=== PATIENT | male | born 1970 | race Caucasian/White ===

== ENCOUNTER → 2016-09-26 | Outpatient (CLI) | payer BC ==
--- NOTE | 2016-09-26 09:33 | RAD ---
EXAM DESCRIPTION: Hip,Right 2 Views CLINICAL HISTORY: 46 yearsMale, PAIN IN RIGHT HIP COMPARISON: None. IMPRESSION: 2 views of the right hip demonstrate no evidence of acute fracture or destructive osseous lesion. There is subtle osseous prominence of the lateral margin of the acetabulum, which may be seen with femoral acetabular impingement. Correlate with symptoms and consider follow-up MRI arthrogram of the hip if indicated. Mild changes of osteoarthritis are noted with slight narrowing of the joint space. Calcified phleboliths in the right hemipelvis. Electronically signed by: Gunnar Davalos MD 09/26/2016 9:33 AM CDT
== END | disposition home or self-care (01) ==
LOC: YCFC.O 08:52
PROVIDERS: ATTEND Nurse Practitioner Family
DX: I10 Essential (primary) hypertension (principal); E78.2 Mixed hyperlipidemia; N18.3 Chronic kidney disease, stage 3 (moderate); E11.65 Type 2 diabetes mellitus with hyperglycemia; Z13.29 Encounter for screening for other suspected endocrine disorder; M25.551 Pain in right hip

== ENCOUNTER → 2016-10-02 | Outpatient (CLI) | payer BC | LOC: SL 20:30 | PROVIDERS: ATTEND Nurse Practitioner Family | DX: G47.33 Obstructive sleep apnea (adult) (pediatric) (principal) ==

== ENCOUNTER → 2016-12-12 | Outpatient (CLI) | payer BC | END | disposition home or self-care (01) | LOC: LAB.O 13:37 | PROVIDERS: ATTEND Internal Medicine Interventional Cardiology | DX: R06.02 Shortness of breath (principal) ==

== ENCOUNTER → 2017-01-01 | Outpatient (CLI) | payer BC | END | disposition home or self-care (01) | LOC: YCFC.O 17:12 | PROVIDERS: ATTEND Nurse Practitioner Family | DX: N18.3 Chronic kidney disease, stage 3 (moderate) (principal) ==

== ENCOUNTER 2017-01-10 07:58 | Inpatient (IN) | payer BC ==
[2017-01-10] MEDS ORDERED: ASPIRIN TABLET 325 MG TAB PO ONE (08:13)
[2017-01-10] MEDS ORDERED: SODIUM CHLORIDE 0.9% 1000ML 500 ML IVS ONE (08:13)
[2017-01-10] MEDS ORDERED: ALUMINUM & MAGNESIUM HYDROXIDE 30 ML UD PO ONE (08:13)
--- NOTE | 2017-01-10 08:42 | RAD ---
Chest two views INDICATION: Chest pain COMPARISON: February 01, 2013 IMPRESSION: There is borderline cardiomegaly. No failure. Hazy area of increased density is noted in the right base possibly infiltrate. This is increased from the previous study in this region. Probable mild adjacent pleural thickening or minimal fluid as well. Suspect infectious inflammatory process. This is located posteriorly on the lateral film. Recommend follow-up films to document complete resolution with therapy especially given the previous density in this area to exclude underlying mass. Otherwise no acute process. Electronically signed by: Porter Kincaid MD 01/10/2017 8:41 AM CDT
[2017-01-10] MEDS ORDERED: SODIUM CHLORIDE 0.9% 1000ML 1,000 ML IVS ONE (09:03)
[2017-01-10] MEDS ORDERED: SOD POLYSTYRENE SULFONATE 15 GM/60 ML BTTL PO ONE ×3 (09:29→22:00)
[2017-01-10] MEDS ORDERED: CALCIUM GLUCONATE INJ 1 GM in SODIUM CHLORIDE 0.9% 50ML 50 ML IVPB ONE (09:29)
[2017-01-10] MEDS ORDERED: CALCIUM GLUCONATE INJ 1 GM/10 ML VIAL ONE (09:35)
[2017-01-10] MEDS ORDERED: SODIUM CHLORIDE 0.9% 50ML 50 ML ONE (09:36)
[2017-01-10] MEDS ORDERED: SODIUM BICARBONATE VIAL 50 MEQ/50 ML VIAL IV ONE (09:59)
[2017-01-10] MEDS ORDERED: SODIUM BICARBONATE SYRINGE 50 MEQ/50 ML SYG IV ONE ×3 (10:28→20:25)
[2017-01-10] MEDS ORDERED: FUROSEMIDE INJ 40 MG/4 ML VIAL IV ONE (11:54)
[2017-01-10] MEDS ORDERED: DEXTROSE 5% IV ONE ×2 (11:58→14:46)
[2017-01-10] MEDS ORDERED: SODIUM BICARBONATE IV ONE ×2 (11:58→14:46)
--- NOTE | 2017-01-10 12:46 | ED.PDOC ---
History of Present Illness - General Chief Complaint: Chest Pain/LA Stated Complaint: lightheadedness,dizziness,chest pressure Time Seen by Provider: 01/10/17 08:04 Source: patient Exam Limitations: no limitations - History of Present Illness Initial Comments: the patient is a 46-year-old male presenting to the emergency room secondary precious episode of mild chest discomfort with some shortness of breath this morning. 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 He had been on restricted duty after having had [address] Quesada on 27 December. He had lab work done on 01 January showing a creatinine of 1.98 which is slightly higher than normal for him. The chest pain and shortness of breath resolved on its own prior to arrival here. He has had chest pain and shortness of breath issues in the past. No syncope or near syncope. No palpitations. He has also had several days of frequent diarrhea. He does have a history of high normal potassium levels in the past. It does appear that he still takes lisinopril. Again he is chest pain and essentially symptom-freeat this time of arrival here Timing/Duration: 1/2 hour Severity: mild Improving Factors: rest Worsening Factors: nothing Associated Symptoms: denies symptoms Allergies/Adverse Reactions: Allergies Erythromycin Allergy (Verified 02/01/15 10:59) Hydrocodone Allergy (Verified 02/01/15 10:59) Penicillins Allergy (Verified 02/01/15 12:41) Influenza A (H1N1) Monovalent Vacci Adverse Reaction (Verified 02/01/15 17:05) Home Medications: Ambulatory Orders Escitalopram Oxalate [Lexapro] 20 mg PO DAILY 02/01/15 Lisinopril 40 mg PO DAILY 02/01/15 Albuterol Sulfate [Proair Hfa] 2 puff INH Q6H PRN #1 02/03/15 Insulin Glargine [Toujeo Solostar] 54 unit SC BID 09/25/15 Insulin Lispro [Humalog] 100 unit SC PRN 09/25/15 Lovastatin 20 mg PO BID 09/25/15 amLODIPine BESYLATE [Norvasc] 10 mg PO DAILY 09/25/15 Clonidine HCl 0.1 mg PO Q8H 03/28/16 Ticagrelor [Brilinta] 90 mg PO BID 01/10/17 Review of Systems - Review of Systems Constitutional: States: malaise EENTM: States: no symptoms reported Respiratory: States: short of breath - rief Cardiology: States: chest pain - brief Gastrointestinal/Abdominal: States: diarrhea Genitourinary: States: no symptoms reported Musculoskeletal: States: no symptoms reported Skin: States: no symptoms reported Neurological: States: no symptoms reported Endocrine: States: no symptoms reported All other Systems: No Change from Baseline Past Medical History (General) - Patient Medical History Hx Seizures: No Hx Stroke: No Hx Dementia: No Hx Asthma: Yes Hx of COPD: No Hx Cardiac Disorders: Yes Hx Congestive Heart Failure: No Hx Pacemaker: No Hx Hypertension: Yes Hx Thyroid Disease: No Hx Diabetes: Yes Hx Gastroesophageal Reflux: No Hx Renal Disease: Yes Hx Cancer: No Hx of HIV: No Hx Hepatitis C: No Hx MRSA: No - Vaccination History Hx Tetanus, Diphtheria Vaccination: Yes Hx Influenza Vaccination: No Hx Pneumococcal Vaccination: Yes - Social History Hx Tobacco Use: Yes Hx Chewing Tobacco Use: Yes Hx Alcohol Use: No Hx Substance Use: No Hx Substance Use Treatment: No Hx Depression: No Hx Physical Abuse: No Hx Emotional Abuse: No Hx Suspected Abuse: No - Female History Patient : No Family Medical History - Family History Mother Living Status: Still Living Hx Family Hypertension: Yes Hx Family Diabetes: Yes Father Family History: No Known Living Status: Hx Family Hypertension: Yes Hx Cardiac Disease: Yes Hx Family Diabetes: Yes Physical Exam - Physical Exam General Appearance: Alert, Comfortable, No apparent distress Eye Exam: bilateral normal Ears, Nose, Throat: hearing grossly normal, normal ENT inspection, normal pharynx Neck: non-tender, full range of motion, supple Respiratory: chest non-tender, lungs clear, normal breath sounds, no respiratory distress, no accessory muscle use Cardiovascular/Chest: normal peripheral pulses, regular rate, rhythm, no edema Peripheral Pulses: radial,right: 2+, radial,left: 2+ Gastrointestinal/Abdominal: non tender, soft - obese Rectal Exam: deferred Back Exam: normal inspection, no CVA tenderness, no vertebral tenderness Extremity: normal range of motion, non-tender, no pedal edema, normal capillary refill Neurologic: vice chancellor II-XII nml as tested, alert, normal mood/affect, oriented x 3 Skin Exam: normal color Comments: Vital Signs - 24 hr 01/10/17 01/10/17 01/10/17 08:04 09:00 09:51 Temperature 97.1 F L Pulse Rate [ 80 74 74 Right Brachial] Respiratory 20 16 Rate Blood Pressure 122/57 113/72 129/61 [Right Arm] O2 Sat by Pulse 98 97 Oximetry 01/10/17 01/10/17 01/10/17 09:52 09:53 09:54 Temperature Pulse Rate [ 74 74 Right Brachial] Respiratory 20 Rate Blood Pressure 125/57 131/60 [Right Arm] O2 Sat by Pulse Oximetry 01/10/17 01/10/17 10:36 11:48 Temperature Pulse Rate [ 73 77 Right Brachial] Respiratory 20 16 Rate Blood Pressure 123/65 147/72 [Right Arm] O2 Sat by Pulse 99 100 Oximetry Progress - Progress Progress: 01/10/17 12:48 the patient is a 46-year-old male presenting to emergency room secondary toa brief episode of shortness of breath and chest pain this morning 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 The patient appears to be in acute on chronic renal failure. He does have significant hyperkalemia. He is currently asymptomatic and there are no significant arrhythmias noted. EKG looks reassuring. The patient does have a significant non-anion gap acidosis. Source of the acidosis is likely multifactorial including the renal failure and probably contributed to by the diarrhea. The patient has received a dose of calcium gluconate, sodium bicarbonate,and Kayexalate. After hydrating he has also received a dose of IV Lasix. The patient is currently on D5W with 3 A of sodium bicarbonate at 200 cc per hour. Cardiac enzymes are reassuring. The patient has had no further chest pain. The patient will be admitted for management of the above issues. Please note the initial normal saline bolus was given prior to determination of the significance of his acidosis. It likely did worsen the acidosis at least minimally. This of course will need to be followed. Repeat BMP and pH frequently to ensure correction. Continue telemetry monitoring. Additionally glucoses will need to be monitored fairly closely with the D5W on board. Additional insulin should only help with the hyperkalemia.. No evidence of diabetic ketoacidosis. - Results/Orders Results/Orders: Laboratory Tests 01/10/17 01/10/17 01/10/17 08:30 08:30 08:30 WBC 8.1 RBC 4.60 L Hgb 11.7 L Hct 37.9 L MCV 82.3 MCH 25.4 L MCHC 31.0 L RDW 16.0 H Plt Count 159 MPV 10.4 Absolute Neuts (auto) 6.20 Absolute Lymphs (auto) 1.00 Absolute Monos (auto) 0.70 Absolute Eos (auto) 0.10 Absolute Basos (auto) 0.00 Neutrophils % 76.5 Lymphocytes % 12.6 L Monocytes % 9.2 H Eosinophils % 1.2 Basophils % 0.5 PT 10.2 INR 0.900 PTT (SP) 29.0 pCO2 pO2 HCO3 ABG pH ABG O2 Saturation ABG Base Excess ABG Deoxyhemoglobin Oxyhemoglobin % Carboxyhemoglobin % Methemoglobin % Sat Calc Total Hemoglobin Sodium 135 Potassium 7.1 H* Chloride 116 H* Carbon Dioxide 13 L* Anion Gap 13.1 BUN 50 H Creatinine 3.05 H BUN/Creatinine Ratio 16.4 Random Glucose 151 H Serum Osmolality 286.3 Calcium 8.5 Magnesium 1.7 L Total Bilirubin 0.2 AST 13 ALT 21 Alkaline Phosphatase 50 Creatine Kinase 163 CK-MB (CK-2) 5.9 H* CK-MB (CK-2) % 3.62 H Troponin I 0.03 B-Natriuretic Peptide 53.5 Serum Total Protein 6.3 L Albumin 3.1 L Globulin 3.2 Albumin/Globulin Ratio 1.0 L Amylase 75 Urine Color Urine Appearance Urine pH Ur Specific [place] Urine Protein Urine Glucose (UA) Urine Ketones Urine Blood Urine Nitrite Urine Bilirubin Urine Urobilinogen Ur Leukocyte Esterase Urine RBC Urine WBC Ur Epithelial Cells Amorphous Sediment Urine Bacteria 01/10/17 01/10/17 01/10/17 09:34 10:00 11:15 WBC RBC Hgb Hct MCV MCH MCHC RDW Plt Count MPV Absolute Neuts (auto) Absolute Lymphs (auto) Absolute Monos (auto) Absolute Eos (auto) Absolute Basos (auto) Neutrophils % Lymphocytes % Monocytes % Eosinophils % Basophils % PT INR PTT (SP) pCO2 30 L pO2 88 HCO3 10.6 ABG pH 7.170 L* ABG O2 Saturation 97.2 ABG Base Excess -16.6 ABG Deoxyhemoglobin 2.7 Oxyhemoglobin % 95.2 Carboxyhemoglobin % 0.7 Methemoglobin % Sat 1.4 Calc Total Hemoglobin 11.3 L Sodium 137 Potassium 6.9 H* Chloride 119 H* Carbon Dioxide 11 L* Anion Gap 13.9 BUN 49 H Creatinine 2.94 H BUN/Creatinine Ratio 16.7 Random Glucose 123 H Serum Osmolality 288.2 Calcium 8.4 Magnesium Total Bilirubin AST ALT Alkaline Phosphatase Creatine Kinase 172 CK-MB (CK-2) 6.3 H* CK-MB (CK-2) % 3.66 H Troponin I 0.02 B-Natriuretic Peptide Serum Total Protein Albumin Globulin Albumin/Globulin Ratio Amylase Urine Color Yellow Urine Appearance Clear Urine pH 5.0 Ur Specific [place] >= 1.030 Urine Protein >=300 H Urine Glucose (UA) Negative Urine Ketones Negative Urine Blood Negative Urine Nitrite Negative Urine Bilirubin Negative Urine Urobilinogen 0.2 Ur Leukocyte Esterase Negative Urine RBC 0-1 Urine WBC 1-3 Ur Epithelial Cells 1-3 Amorphous Sediment 3+ Urine Bacteria 1+ Departure - Departure Clinical Impression: Metabolic acidosis, Hyperkalemia Acute renal failure Qualifiers: Acute renal failure type: unspecified Qualified Code(s): N17.9 - Acute kidney failure, unspecified Disposition: Admit Patient Referrals: Leah Buckley NP [Primary Care Provider] - 1-2 Weeks Home Medications: Ambulatory Orders Escitalopram Oxalate [Lexapro] 20 mg PO DAILY 02/01/15 Lisinopril 40 mg PO DAILY 02/01/15 Albuterol Sulfate [Proair Hfa] 2 puff INH Q6H PRN #1 02/03/15 Insulin Glargine [Toujeo Solostar] 54 unit SC BID 09/25/15 Insulin Lispro [Humalog] 100 unit SC PRN 09/25/15 Lovastatin 20 mg PO BID 09/25/15 amLODIPine BESYLATE [Norvasc] 10 mg PO DAILY 09/25/15 Clonidine HCl 0.1 mg PO Q8H 03/28/16 Ticagrelor [Brilinta] 90 mg PO BID 01/10/17 Decision To Admit - Decistion To Admit Decision to Admit Reason: Medical Nature Decision to Admit Date: 01/10/17 Decision to Admit Time: 12:53
--- NOTE | 2017-01-10 13:51 | HP ---
HISTORY OF PRESENT ILLNESS: This 46 year-old white male was admitted to the hospital via the Emergency Room because of significant symptoms of light- headedness, tiredness, mild shortness of breath noted today while returning to work for the first time in a couple of weeks. 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 Two weeks ago today he received a coronary stent by Dr. Quesada in [place]. This was performed on . He had been placed on no work until today when he was to return on light duty. The heat outside was not that bad but he noted the onset of some chest tightness and fullness. No cardiac palpitations evident. No chest pain was present in the Emergency Room. Dizziness and light-headedness was present. He has had some diarrhea off and on for the last 3 days. He admits to using an artificial salt instead of regular salt. He is a diabetic on twice daily dosings of Toujeo 54 units for diabetic management. In the Emergency Room, he was found to have acute worsening of his renal function with creatinine of 3 and potassium very elevated at 7.1. He admits to not having drunk enough fluids recently. Significant metabolic acidosis also present with a normal to decreased anion gap. Potassium elevated at 7.1, creatinine 3.0. The patient is admitted to the hospital because of the significance of his recent coronary history for support and stabilization, and for further delineation of the significant metabolic acidosis noted. PAST MEDICAL HISTORY: 1. Hypertension. 2. Diabetes. 3. Kidney insufficiency. 4. Elevated cholesterol. PAST SURGICAL HISTORY: 1. Second and third finger on the left had been partially amputated successfully reattached. 2. Rotator cuff repair right shoulder. 3. Bronchoscopy in the past. 4. Removal of pus from his right lung which has left some residual thickening of the pleural on that side on chest x-ray. CURRENT MEDICATIONS: Please refer to nurses' notes for a list of verified home medications. ALLERGIES: REFER TO LIST IN THE CHART. 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 He stopped tobacco use about 15 years ago after about 6 pack year histories of smoking. REVIEW OF SYSTEMS: No significant weight change, fever or chills. HEENT: Hearing and vision appear to be uninvolved. LUNGS: Occasional shortness of breath upon exertion, but not recently. CARDIOVASCULAR: History of recent stent placed now with some discomfort in his chest and generalized weakness, and mild chest pain, resolved. ABDOMEN: No nausea, vomiting, diarrhea or blood in the stools. GENITOURINARY: No dysuria. EXTREMITIES: Pedal edema present recently. NEUROLOGIC: Somewhat weak, yet the patient is otherwise awake, alert and oriented. PHYSICAL EXAMINATION: VITAL SIGNS: Afebrile, pulse 79, blood pressure 185/84, pulse oximetry 100% room air. GENERAL: The patient is awake and alert, and a fairly good historian. HEENT: Within normal limits. NECK: Supple. CHEST: Lungs have some diminished breath sounds, otherwise clear. CARDIOVASCULAR: Heart tones regular without any significant gallops. ABDOMEN: Slightly obese yet soft with no tenderness or organomegaly evident. EXTREMITIES: Have about 2+ pitting edema both anterior shins upon exam. NEUROLOGIC: No focal neurological deficits noted. The patient is otherwise awake and alert. He does complain of being somewhat easily fatigued. No dizziness noted on exam at this time. No nystagmus. LABORATORY: White count is 8,100 with hemoglobin of 11.7, INR of 0.9. Blood gases showed significant acidosis with pH of 7.17 with Bicarb 10.6 and PO2 of 88 , PCO2 of 30. Chemistries are abnormal with potassium 7.1, chloride elevated at 116, carbon dioxide 13 down to 11, BUN 50 down to 49, creatinine 3 down to 2.94, glucose 151 down to 111, calcium 8.5, CK 163, troponin 0.03, beta natriuretic peptide 53.5, albumin 3.1. Amylase 75. Urinalysis generally clean with proteinuria and increased specific gravity. Serum ketones are negative. X-ray of the chest showed no acute findings. ASSESSMENT: 1. Acute renal injury possibly related to contrast exposure of 2 weeks ago at the time of the coronary angiography versus prerenal azotemia being treated with some gentle fluid hydration. 2. Hyperkalemia quite high at 7.1. 3. Creatinine of 3. 4. Dehydrated state with increased specific gravity in the urine requiring fluid supplementation. 5. Diabetes mellitus insulin dependent, yet no ketosis. 6. Severe metabolic acidosis awaiting lactic acid level with negative ketones and at this time of other poisoning, such as antifreeze, etc. 7. Abnormal chest x-ray with scarring in the right lower lobe probably related to an empyema present there years ago requiring removal surgically. 8. Pedal edema bilaterally. 9. History of sleep apnea on CPAP machine to continue. 10. History of hypercholesterolemia. 11. Diarrhea for the last 3 days of undetermined etiology. PLAN: Continue with gentle hydration. Will try a bag or 2 of to sodium bicarb renal support fluids and recheck BNP tonight at 11:00 PM. Results to be called. Try Kayexalate orally to help reduce the potassium. Recheck lab in the morning. Continue with insulin therapy having to adjust for ongoing changes in sugar levels. Observe closely. Reevaluate in the morning. #[id number] MTDD
[2017-01-10] MEDS ORDERED: ACETAMINOPHEN 325 MG TAB PO PRN (14:48)
[2017-01-10] MEDS ORDERED: SODIUM CHLORIDE 0.9% (FLUSH) 10 ML SYG IV PRN (14:48)
[2017-01-10] MEDS ORDERED: GLUCAGON INJ 1 MG VIAL SUBCU PRN (14:48)
[2017-01-10] MEDS ORDERED: MAGNESIUM HYDROXIDE 30 ML UD PO PRN (14:48)
[2017-01-10] MEDS ORDERED: DEXTROSE 50% 25 GM/50 ML SYG IV PRN (14:48)
[2017-01-10] MEDS: LEVALBUTEROL NEBS 1.25 MG/3 ML VIAL NEB SCH ×2 (15:00→19:30)
[2017-01-10] MEDS ORDERED: IV SET AND CAP CHANGE INJ INJ SCH (15:00)
[2017-01-10] MEDS ORDERED: traMADol HCL 50 MG TAB PO PRN (15:36)
[2017-01-10] MEDS: INSULIN LISPRO 100 UNITS/ML PEN SUBCU SCH (16:31)
[2017-01-10] MEDS ORDERED: NON-FORMULARY MEDICATION 1 EA MIS (Lisinopril [Lisinopril] 40 MG) PO SCH (19:00)
[2017-01-10] MEDS ORDERED: LISINOPRIL 10 MG TAB ONE (19:08)
[2017-01-10] MEDS: cloNIDine HCL 0.1 MG TAB PO SCH (19:11)
[2017-01-10] MEDS ORDERED: SODIUM BICARBONATE VIAL 100 MEQ in DEXTROSE 5% 1000ML 1,000 ML IVS PRN (20:12)
[2017-01-10] MEDS ORDERED: SOD POLYSTYRENE SULFONATE 15 GM/60 ML BTTL ONE (20:13)
[2017-01-10] MEDS ORDERED: DEXTROSE 5% 1000ML 1,000 ML IVS ONE (20:27)
[2017-01-10] MEDS: NON-FORMULARY MEDICATION 1 EA MIS (Ticagrelor [Brilinta] 90 MG) PO SCH (21:15)
--- NOTE | 2017-01-11 01:34 | PCM.CORE ---
Physician DVT/VTE - Nurse DVT Assessment & Total Each Risk Factor Represents 1 Point: Age 41-60 Each Risk Factor is 1 Point: Obesity (BMI >25) DVT Assessment Score: 2 - 2 Moderate Risk Treatments: Sequential Compression Device
[2017-01-11] MEDS: INSULIN LISPRO 100 UNITS/ML PEN SUBCU SCH ×5 (02:29→20:56)
[2017-01-11] MEDS: cloNIDine HCL 0.1 MG TAB PO SCH ×3 (02:37→18:08)
[2017-01-11] MEDS: OMEPRAZOLE CAP 20 MG CAP PO SCH (05:49)
[2017-01-11] MEDS: LEVALBUTEROL NEBS 1.25 MG/3 ML VIAL NEB SCH ×3 (08:11→19:53)
[2017-01-11] MEDS ORDERED: LISINOPRIL 10 MG TAB ONE (08:28)
[2017-01-11] MEDS ORDERED: DEXTROSE 5% 1000ML 1,000 ML IVS ONE ×3 (08:43→20:30)
[2017-01-11] MEDS: ESCITALOPRAM 10 MG TAB PO SCH (08:51)
[2017-01-11] MEDS: LISINOPRIL 10 MG TAB PO SCH (08:52)
[2017-01-11] MEDS: amLODIPine BESYLATE 5 MG TAB PO SCH (08:52)
[2017-01-11] MEDS: NON-FORMULARY MEDICATION 1 EA MIS (Ticagrelor [Brilinta] 90 MG) PO SCH ×2 (08:57→20:34)
[2017-01-11] MEDS: SODIUM BICARBONATE IV PRN ×2 (09:30→20:33)
[2017-01-11] MEDS: DEXTROSE 5% IV PRN ×2 (09:30→20:33)
[2017-01-11] MEDS ORDERED: FUROSEMIDE INJ 20 MG/2 ML VIAL IV ONE (11:08)
[2017-01-11] MEDS ORDERED: SODIUM BICARBONATE SYRINGE 50 MEQ/50 ML SYG IV ONE (13:03)
--- NOTE | 2017-01-11 20:20 | PN ---
DATE: 01/11/17 SUPERVISING PHYSICIAN: Román Alvarez M.D. SUBJECTIVE: The patient states that he is feeling somewhat better today His kidney function is showing some improvement. An initial 24 hours of close monitoring with continued IV therapy is warranted. He remains afebrile. He has now shown improvement in his potassium this morning having diarrhea from the Kayexalate. OBJECTIVE: VITAL SIGNS: Temperature 96.8, pulse 88, blood pressure 169/81, respirations 18, satting 96% on room air. I's and O's show a positive balance of 30 with 2280 in, 2250 out. He has had multiple bowel movements. Weight is 131.5 kg. CHEST: Lungs are clear to auscultation bilaterally. HEART: Regular rate and rhythm. ABDOMEN: Soft, non-tender. Positive bowel sounds but obese. EXTREMITIES: There is trace bilateral lower extremity edema. NEUROLOGIC: He is alert and oriented times three. LABORATORY: CBC shows white count 6.6, hemoglobin 10.6, hematocrit 33.5, platelet count 130,000. Differential shows no left shift. Chemistries: Potassium now is down to 4.8, sodium 140, chloride 114, carbon dioxide 17 with BUN 44, creatinine 2.53 which is nearing the patient's baseline of 1.9 and 2.0. Blood sugar was 99, calcium 7.9. Lipid panel showed triglycerides of 162 with cholesterol 133, LDL was 66 with HDL of 26. ASSESSMENT: 1. Acute renal injury possibly related to previous contrast exposure 2 weeks prior to admission secondary to coronary angiogram versus some ongoing prerenal azotemia showing some improvement with gentle hydration fluids with bicarb drip. 2. Hyperkalemia initially 7.1, now normalized after Kayexalate and bicarbonate drip. 3. Creatinine of 3.0 on admission showing improvement after IV fluids nearing the patient's baseline of 1.9 and 2.0 being secondary to past coronary artery angiogram with contrast and some ongoing prerenal azotemia. 4. Dehydration as noted by increased specific gravity of the urine showing improvement with ongoing fluid therapy. 5. Diabetes mellitus insulin dependent without any evidence of ketoacidosis 6. Severe metabolic acidosis with negative ketones likely secondary to acute renal injury as noted in number 1. 7. Abnormal chest x-ray with scarring in the right lower lobe related to previous empyema from multiple years previous that required surgical intervention. 8. Bilateral pedal edema requiring ongoing management with IV fluids and loop diuretics. 9. History of sleep apnea on CPAP. 10. Hypercholesterolemia as noted on the recent lipid panel. 11. Diarrhea prior to admission exacerbated by Kayexalate, now resolved. PLAN: Will continue with hydration therapy with sodium bicarbonate drip decreasing to 50 mEq per liter of D5W with a decrease in his rate to 90 per hour with plan to repeat a BMP at 1800 today. Will anticipate discharging tomorrow after repeating laboratory studies to include a BMP. Once the patient is clinically stable enough to be discharged, he will need close clinical followup in the outpatient setting. Until then, will continue to monitor and treat appropriately. #[id number] [facility]
[2017-01-12] MEDS: cloNIDine HCL 0.1 MG TAB PO SCH (02:54)
[2017-01-12 03:32] VITALS: O2SAT 98
[2017-01-12] MEDS: OMEPRAZOLE CAP 20 MG CAP PO SCH (06:06)
[2017-01-12 06:31] VITALS: BP 143/66; TEMP 96.6
[2017-01-12] MEDS: INSULIN LISPRO 100 UNITS/ML PEN SUBCU SCH (08:13)
[2017-01-12] MEDS: LEVALBUTEROL NEBS 1.25 MG/3 ML VIAL NEB SCH (08:50)
[2017-01-12] MEDS: NON-FORMULARY MEDICATION 1 EA MIS (Ticagrelor [Brilinta] 90 MG) PO SCH (09:23)
[2017-01-12] MEDS: LISINOPRIL 10 MG TAB PO SCH (09:24)
[2017-01-12] MEDS: ESCITALOPRAM 10 MG TAB PO SCH (09:25)
[2017-01-12] MEDS: amLODIPine BESYLATE 5 MG TAB PO SCH (09:25)
--- NOTE | 2017-01-14 16:09 | DS ---
SUPERVISING PHYSICIAN: Tashi Khan MD DISCHARGE DIAGNOSES: 1. Acute renal injury possibly related to previous IV contrast exposure 2 weeks prior to admission secondary to coronary angiogram versus some ongoing prerenal azotemia showing some improvement with gentle hydration, bicarb and Lasix. 2. Hyperkalemia initially 7.1, normalized after Kayexalate and bicarbonate prior to discharge. 3. Creatinine of 3.0 on admission showing improvement after IV fluids nearing the patient's baseline of 1.9 and 2.0 felt to be secondary to past coronary artery angiogram with IV contrast and ongoing prerenal azotemia. 4. 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 Severe metabolic acidosis on admission with negative ketones likely secondary to acute renal injury as noted in number 1 improved after Iv therapy with sodium bicarb. 6. Abnormal chest x-ray with scarring on the right lower lobe related to previous empyema with multiple years previous that required surgical intervention. 7. Bilateral pedal edema improved after fluid restrictions and low-dose loop diuretics. 8. History of sleep apnea on CPAP. 9 . Hypercholesterolemia as noted on the recent lipid panel. 10. Diarrhea prior to admission exacerbated by Kayexalate, now resolved. LABORATORY: CBC on admission showed a white count of 8.1, at discharge was 6.6. Hemoglobin and hematocrit were stable on discharge at 10.6 and 33.5. Platelet count 130,000, differential showed to be within normal limits. Coagulation studies showed a normal PT/PTT. Blood gas analysis showed a pH of 7.17 initially on admission with a PC02 of 30 with a bicarb of 10 and P02 of 88. Saturation 97% on room air. Chemistries on admission initially showed a potassium of 7.1 with chloride of 116, carbon dioxide 13, sodium 135, BUN 50, creatinine 3.05. After IV fluids including sodium bicarbonate and a Kayexalate treatment, prior to discharge his electrolytes had normalized. His BUN was down to 37, creatinine down to 2.17. His blood sugars are well controlled between 65 and 157. Calcium 8.1 at discharge. Urinalysis on admission showed greater than 300 protein. Microscopic shows 0 to 1 RBC, 1 to 3 WBC, 1 to 3 epithelials, 3+ amorphous and 1 + bacteria. Toxicology screen showed negative ketones on admission. RADIOSCOPIC: Chest x-ray on admission per radiology interpretation showed a borderline cardiomegaly with no failure. Hazy area of increased density noted within the right base, possibly infiltrate that was increased from previous studies in the same region, probable mild adjacent pleural thickening or minimal fluid as well. There was question of whether or not it was an infectious inflammatory process with recommendations for followup of chest x- ray to resolution. HOSPITAL COURSE: Mr. Leon was admitted on 01/10/17 as noted for hyperkalemia and new metabolic acidosis secondary to ongoing renal failure from the IV contrast he received the previous weeks while having an angiogram. He was started on IV fluids to include an bicarbonate drip and progressed through the clinical course and did well. His electrolytes had normalized. His creatinine and BUN had returned to a more closer baseline status. He was clinically stable and it was felt at that point that he could be discharged and have clinical followup. PLAN: Mr. Leon was discharged on 01/12/17 with instructions to followup with [facility]. 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 Encouraged fluids to help prevent dehydration in moderation. He will need repeat labs on followup visit at least this week to again followup on the BUN and creatinine. He will also need a repeat chest x-ray again to followup on findings on initial x-ray and hospitalization. He was told to return to the hospital should he have any failure in his condition to improve or any other concerning status post. No new medications were prescribed at discharge. He has a followup at 12:10 on 01/15 with [facility], Dennise Buckley. DISCHARGE DIET: 1800 calorie ADA diet as tolerated. ACTIVITIES: No extraneous exercising, welding or any other activities that would expose him to heat until he was seen in followup with [facility]. CONDITION ON DISCHARGE: Stable and improved. #[id number] MTDD
== END 2017-01-12 10:50 | disposition home or self-care (01) | DRG 683 ==
LOC: ER 07:58 → MS 13:50
PROVIDERS: ADMIT Emergency Medicine; ATTEND Emergency Medicine
DX: N17.9 Acute kidney failure, unspecified (principal); E87.2 Acidosis; E87.5 Hyperkalemia; E86.0 Dehydration; E11.9 Type 2 diabetes mellitus without complications; G47.30 Sleep apnea, unspecified; E78.00 Pure hypercholesterolemia, unspecified; R19.7 Diarrhea, unspecified; K21.9 Gastro-esophageal reflux disease without esophagitis; R91.8 Other nonspecific abnormal finding of lung field; J45.909 Unspecified asthma, uncomplicated; Z95.5 Presence of coronary angioplasty implant and graft; Z87.891 Personal history of nicotine dependence; Z88.0 Allergy status to penicillin; Z88.1 Allergy status to other antibiotic agents; Z88.5 Allergy status to narcotic agent; Z88.7 Allergy status to serum and vaccine; Z79.4 Long term (current) use of insulin; Z79.899 Other long term (current) drug therapy

== ENCOUNTER → 2017-01-15 | Outpatient (CLI) | payer BC | END | disposition home or self-care (01) | LOC: LAB.O 09:05 | PROVIDERS: ATTEND Nurse Practitioner Family | DX: N17.9 Acute kidney failure, unspecified (principal) ==

== ENCOUNTER 2017-01-22 20:35 | Inpatient (IN) | payer BC ==
--- NOTE | 2017-01-22 21:10 | ED.PDOC ---
History of Present Illness - General Chief Complaint: General Stated Complaint: elevated potassium, told to come to ED by PCP Time Seen by Provider: 01/22/17 21:09 Source: patient, Vital Signs reviewed Exam Limitations: no limitations - History of Present Illness Initial Comments: Josafat Leon 46 y/o male with history of dm1.5,ckd,htn was told to come to emergency room after blood test done outpatient showed that hehas elevated potassium-6.8 Cr-2.08 bun 46.Had recent cardiac stent placed after he had abnormal cardiac stress test 2 weeks ago. Timing/Duration: unsure Severity: moderate Improving Factors: nothing Worsening Factors: nothing Associated Symptoms: other - diarrhea x 3 weeks Allergies/Adverse Reactions: Allergies Erythromycin Allergy (Verified 01/22/17 20:53) Hydrocodone Allergy (Verified 01/22/17 20:53) Penicillins Allergy (Verified 01/22/17 20:53) Influenza A (H1N1) Monovalent Vacci Adverse Reaction (Verified 01/22/17 20:53) Home Medications: Ambulatory Orders Escitalopram Oxalate [Lexapro] 20 mg PO DAILY 02/01/15 Lisinopril 40 mg PO DAILY 02/01/15 Albuterol Sulfate [Proair Hfa] 2 puff INH Q6H PRN #1 02/03/15 Insulin Glargine [Toujeo Solostar] 54 unit SC BID 09/25/15 Insulin Lispro [Humalog] 100 unit SC PRN 09/25/15 amLODIPine BESYLATE [Norvasc] 10 mg PO DAILY 09/25/15 Clonidine HCl 0.3 mg PO Q8H 03/28/16 Rosuvastatin Calcium [Crestor] 40 mg PO BEDTIME 01/10/17 Ticagrelor [Brilinta] 90 mg PO BID 01/10/17 hydrALAZINE HCl [HydrALAzine HCl] 25 mg PO Q8H 01/10/17 Review of Systems - Review of Systems Constitutional: States: no symptoms reported EENTM: States: no symptoms reported Respiratory: States: no symptoms reported Cardiology: States: no symptoms reported Gastrointestinal/Abdominal: States: no symptoms reported Genitourinary: States: no symptoms reported Musculoskeletal: States: no symptoms reported Neurological: States: no symptoms reported Endocrine: States: no symptoms reported Hematologic/Lymphatic: States: no symptoms reported Past Medical History (General) - Patient Medical History Hx Seizures: No Hx Stroke: No Hx Dementia: No Hx Asthma: Yes Hx of COPD: No Hx Cardiac Disorders: No Hx Congestive Heart Failure: No Hx Pacemaker: No Hx Hypertension: Yes Hx Thyroid Disease: No Hx Diabetes: Yes Hx Gastroesophageal Reflux: No Hx Renal Disease: Yes Hx Cancer: No Hx of HIV: No Hx Hepatitis C: No Hx MRSA: No Surgical History: other - rotator cuff-right,left hand,thoracotomy-empyema, cardiac stent x2 - Vaccination History Hx Tetanus, Diphtheria Vaccination: Yes Hx Influenza Vaccination: No - allergy Hx Pneumococcal Vaccination: Yes Immunizations Up to Date: Yes - Social History Hx Tobacco Use: No Hx Chewing Tobacco Use: No Hx Alcohol Use: No Hx Substance Use: No Hx Substance Use Treatment: No Hx Depression: No Feels Threatened In Home Enviroment: No Feels Threatened In a Relationship: No Hx Physical Abuse: No Hx Emotional Abuse: No Hx Suspected Abuse: No - Activities of Daily Living Patient Lives Alone: No - family - Female History Patient : No Family Medical History - Family History Mother Living Status: Still Living Hx Family Hypertension: Yes - several family members Hx Cardiac Disease: Yes - dad -mi Hx Family Diabetes: Yes - several family members Father Family History: No Known Living Status: Hx Family Hypertension: Yes Hx Cardiac Disease: Yes Hx Family Diabetes: Yes Physical Exam - Physical Exam General Appearance: Alert, Comfortable, No apparent distress Eye Exam: bilateral normal - with corrective glasses Ears, Nose, Throat: hearing grossly normal, normal ENT inspection, normal pharynx Neck: non-tender, full range of motion, supple Respiratory: chest non-tender, lungs clear, normal breath sounds Cardiovascular/Chest: normal peripheral pulses, regular rate, rhythm, no gallop , no murmur Peripheral Pulses: radial,right: 1+, radial,left: 1+, dorsalis pedis,right: 1+, dorsalis pedis,left: 1+, posterior tibialis,right: 1+, posterior tibialis,left: 1+ Gastrointestinal/Abdominal: normal bowel sounds, non tender, soft, other - umbilical hernia reducible Back Exam: normal inspection, no CVA tenderness, no vertebral tenderness Extremity: normal range of motion, non-tender, normal inspection, no calf tenderness Neurologic: alert, normal mood/affect, oriented x 3 Skin Exam: normal color, warm/dry Lymphatic: no adenopathy Progress - Progress Progress: 01/22/17 21:41 Vital Signs - 8 hr 01/22/17 01/22/17 01/22/17 20:39 20:48 21:08 Temperature 97.3 F L Pulse Rate 83 Pulse Rate [ 83 83 75 monitor] Respiratory 16 Rate Blood Pressure 166/95 159/77 [Left Arm] O2 Sat by Pulse 99 Oximetry - Results/Orders Results/Orders: 01/22/17 21:00 EKG STAT 01/22/17 21:11 Sodium Bicarbonate Vial [Sodium Bicarbonate] 50 meq Sodium Chloride 0.45% 1000ML [1/2 Ns 1000ML] 1,000 ml IVS .QD 01/22/17 22:00 CLOSTRIDIUM DIFFICILE AG/TOXIN Stat STOOL CULTURE Stat 01/22/17 22:56 FSBS [GLUCOSE, FINGER STICK] Stat 01/22/17 23:00 Be Our Guest Tray (BOG) ONCE Laboratory Results - last 24 hr 01/22/17 01/22/17 01/22/17 21:00 21:05 21:05 WBC 5.6 RBC 4.34 L Hgb 11.2 L Hct 35.4 L MCV 81.5 MCH 25.8 L MCHC 31.6 L RDW 15.2 H Plt Count 128 L MPV 10.6 H Absolute Neuts (auto) 3.30 Absolute Lymphs (auto) 1.70 Absolute Monos (auto) 0.50 Absolute Eos (auto) 0.10 Absolute Basos (auto) 0.00 Neutrophils % 58.7 Lymphocytes % 29.8 Monocytes % 8.8 Eosinophils % 2.2 Basophils % 0.5 Sodium 138 Potassium 6.3 H Chloride 116 H* Carbon Dioxide 17 L Anion Gap 11.3 L BUN 45 H Creatinine 2.17 H BUN/Creatinine Ratio 20.7 H Random Glucose 134 H Serum Osmolality 289.2 Calcium 8.7 Total Bilirubin 0.4 AST 17 ALT 21 Alkaline Phosphatase 46 Serum Total Protein 6.4 Albumin 3.1 L Globulin 3.3 Albumin/Globulin Ratio 0.9 L Urine Color Yellow Urine Appearance Clear Urine pH 5.5 Ur Specific [place] 1.025 Urine Protein >=300 H Urine Glucose (UA) Negative Urine Ketones Negative Urine Blood Trace-intact H Urine Nitrite Negative Urine Bilirubin Negative Urine Urobilinogen 0.2 Ur Leukocyte Esterase Negative Urine RBC 1-3 Urine WBC 0 Ur Epithelial Cells 0 Urine Bacteria Rare - EKG/XRAY/CT EKG: Sinus, nonspecific ST T wave Chg Comments: heart rate-77 Departure - Departure Clinical Impression: Hyperkalemia, diminished renal excretion, CKD (chronic kidney disease) stage 2 , GFR 60-89 ml/min, Diabetes 1.5, managed as type 1 Time of Disposition: 23:05 - D/W Noé Whitehead ANP/Hospitalist Disposition: Admit Patient Condition: Fair Departure Forms: Patient Portal Self Enrollment Referrals: Leah Buckley NP [Primary Care Provider] - 1-2 Weeks Home Medications: Ambulatory Orders Escitalopram Oxalate [Lexapro] 20 mg PO DAILY 02/01/15 Lisinopril 40 mg PO DAILY 02/01/15 Albuterol Sulfate [Proair Hfa] 2 puff INH Q6H PRN #1 02/03/15 Insulin Glargine [Toujeo Solostar] 54 unit SC BID 09/25/15 Insulin Lispro [Humalog] 100 unit SC PRN 09/25/15 amLODIPine BESYLATE [Norvasc] 10 mg PO DAILY 09/25/15 Clonidine HCl 0.3 mg PO Q8H 03/28/16 Rosuvastatin Calcium [Crestor] 40 mg PO BEDTIME 01/10/17 Ticagrelor [Brilinta] 90 mg PO BID 01/10/17 hydrALAZINE HCl [HydrALAzine HCl] 25 mg PO Q8H 01/10/17
[2017-01-22] MEDS ORDERED: SODIUM CHLORIDE 0.45% IVS PRN (21:11)
[2017-01-22] MEDS ORDERED: SODIUM BICARBONATE IVS PRN (21:11)
[2017-01-22] MEDS ORDERED: CALCIUM GLUCONATE INJ 2 GM in SODIUM CHLORIDE 0.9% 100ML 100 ML IVPB ONE (21:11)
[2017-01-22] MEDS ORDERED: INSULIN, REG.(HUMAN) 100 U/ML VIAL IV ONE (21:13)
[2017-01-22] MEDS ORDERED: SOD POLYSTYRENE SULFONATE 15 GM/60 ML BTTL PO ONE (21:13)
[2017-01-22] MEDS ORDERED: SODIUM CHLORIDE 0.9% 100ML 100 ML IVPB ONE ×3 (21:44→21:47)
[2017-01-22] MEDS ORDERED: CALCIUM GLUCONATE INJ 1 GM/10 ML VIAL ONE ×2 (21:44→21:47)
[2017-01-22] MEDS ORDERED: SODIUM BICARBONATE SYRINGE 50 MEQ/50 ML SYG IV ONE ×2 (23:04→23:51)
[2017-01-22] MEDS ORDERED: SODIUM CHLORIDE 0.45% 1000ML 1,000 ML IVS ONE (23:05)
--- NOTE | 2017-01-22 23:38 | HP ---
SUPERVISING PHYSICIAN: Román Alvarez MD CHIEF COMPLAINT: Elevated potassium. HISTORY OF PRESENT ILLNESS: This is a 46-year-old male patient who was seen in clinic at [facility] for his routine followup. He had had two cardiac stents placed approximately three weeks ago per Dr. Quesada in [place]. After discharge, he had elevated potassium. He also had some chronic renal failure and sees Dr. Lamb. He had a followup to check his potassium. Yesterday evening, he was called by is primary care provider, Leah Buckley, at [facility] to go to the Emergency Room to an elevated potassium of 6.8. In the Emergency Room, he was given some calcium gluconate, some insulin and some dextrose. His potassium came down to 6.3. He did have an elevated chloride of 116, BUN 45, creatinine 2.17. He also received a dose of Kayexalate and was admitted to the hospital. PAST MEDICAL HISTORY: 1. Hypertension. 2. Diabetes. 3. Kidney insufficiency. 4. Hyperlipidemia. PAST SURGICAL HISTORY: 1. Second and third finger amputation that were successfully reattached. 2. Rotator cuff repair, right shoulder. 3. Bronchoscopy. 4. One surgery due to an empyema on the right lung. CURRENT MEDICATIONS: As per the EMR and awaiting verification. ALLERGIES: ERYTHROMYCIN, HYDROCODONE, PENICILLIN, FLU VACCINE. 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 He was a previous smoker, but quit about 15 years ago. He denies any ETOH or illicit drug use. REVIEW OF SYSTEMS: GENERAL: He complains of fatigue. Denies fever or weight changes. HEENT: Denies sinus symptoms, ear pain, vision changes or sore throat. RESPIRATORY: Denies wheezing, coughing or shortness of breath. CARDIAC: Denies chest pain, palpitations or tachycardia. GASTROINTESTINAL: Denies nausea, vomiting, diarrhea, constipation. GENITOURINARY: Denies hematuria, dysuria or polyuria. EXTREMITIES: Denies swelling. NEUROLOGIC: Complains of some dizziness and weakness. Denies headache or seizures. PHYSICAL EXAMINATION: VITAL SIGNS: Afebrile. Heart rate 74. Blood pressure 152/85. Respiratory rate 16. O2 saturation 98% on room air. GENERAL: This is a 46-year-old, male patient who is sitting up in his hospital room. HEENT: Normocephalic, atraumatic. Pupils are equal and reactive. Oropharynx is clear. NECK: Supple without mass. RESPIRATORY: Clear to auscultation bilaterally. CHEST: There is equal rise and fall of the chest with inspiration and expiration. CARDIOVASCULAR: Regular rate and rhythm. ABDOMEN: Soft, nondistended, nontender. Bowel sounds are positive. EXTREMITIES: No cyanosis, clubbing or edema. NEUROLOGIC: Awake, alert and oriented times three. LABORATORY: As per history of present illness plus glucose is 134, albumin 3.1. His followup potassium is 6.4 with BUN 42, creatinine 2.08. Hemoglobin 11 , hematocrit 34.6. All other labs and films have been reviewed via the EMR. ASSESSMENT: 1. Hyperkalemia, most likely due to renal injury as well as high dose of lisinopril. 2. Acute on chronic renal failure with baseline creatinine of about 2. 3. Hypertension. 4. Diabetes mellitus, type 2. 5. History of sleep apnea on CPAP at home. 6. History of hyperlipidemia. 7. History of recent cardiac stent placement per Dr. Quesada about 3 weeks ago. PLAN: We will admit the patient to the hospital. We will continue present supportive care. I have discontinued his lisinopril. His blood pressure has been slightly elevated. We will need to replace his lisinopril with most likely a beta noni. I have spoken to Dr. Lamb and he agrees that we should give another dose of Kayexalate and monitor potassium closely. I will do another potassium this afternoon as well as routine labs in the morning. He is Lovenox for DVT prophylaxis and Protonix for ulcer prophylaxis. We will encourage good pulmonary toilet and will continue to monitor the patient closely and followup as needed. Dr. Alvarez is the collaborating physician and available for consultation. #[id number] [facility] HOSPITALServando
[2017-01-22] MEDS ORDERED: SODIUM BICARBONATE IV PRN (23:40)
[2017-01-22] MEDS ORDERED: DEXTROSE 5% IV PRN (23:40)
[2017-01-22] MEDS ORDERED: GLUCAGON INJ 1 MG VIAL SUBCU PRN (23:42)
[2017-01-22] MEDS ORDERED: SODIUM CHLORIDE 0.9% (FLUSH) 10 ML SYG IV PRN (23:42)
[2017-01-22] MEDS ORDERED: DEXTROSE 50% 25 GM/50 ML SYG IV PRN (23:42)
[2017-01-22] MEDS ORDERED: ACETAMINOPHEN 325 MG TAB PO PRN (23:42)
[2017-01-22] MEDS ORDERED: IV SET AND CAP CHANGE INJ INJ SCH (23:45)
[2017-01-22] MEDS ORDERED: DEXTROSE 5% 1000ML 1,000 ML IVS ONE (23:51)
--- NOTE | 2017-01-23 01:06 | PCM.CORE ---
Physician DVT/VTE - Nurse DVT Assessment & Total Each Risk Factor Represents 1 Point: Age 41-60, Hx of smoking past year Each Risk Factor is 1 Point: Varicose Veins/Edema Legs, Obesity (BMI >25) DVT Assessment Score: 4 - 3-4 High Risk Treatments: Early Ambulation * Pharmacological: Enoxaparin 40 mg SQ Daily
[2017-01-23] MEDS: cloNIDine HCL 0.1 MG TAB PO SCH ×3 (01:14→16:42)
[2017-01-23] MEDS ORDERED: SOD POLYSTYRENE SULFONATE 15 GM/60 ML BTTL PO ONE ×3 (06:47→12:14)
[2017-01-23] MEDS: INSULIN LISPRO 100 UNITS/ML PEN SUBCU SCH ×4 (07:38→21:22)
[2017-01-23] MEDS ORDERED: DEXTROSE 5% 1000ML 1,000 ML IVS ONE (08:41)
[2017-01-23] MEDS ORDERED: SODIUM BICARBONATE SYRINGE 50 MEQ/50 ML SYG IV ONE ×2 (08:41→08:53)
[2017-01-23] MEDS ORDERED: SODIUM BICARBONATE SYRINGE 75 MEQ in DEXTROSE 5% 1000ML 1,000 ML IV PRN (08:54)
[2017-01-23] MEDS: INSULIN GLARGINE 54 UNIT SC SCH ×2 (09:03→21:21)
[2017-01-23] MEDS: ESCITALOPRAM 10 MG TAB PO SCH (09:03)
[2017-01-23] MEDS: amLODIPine BESYLATE 5 MG TAB PO SCH (09:03)
[2017-01-23] MEDS: ENOXAPARIN SODIUM 40 MG/0.4 ML SYG SUBCU SCH (09:04)
[2017-01-23] MEDS: NON-FORMULARY MEDICATION 1 EA MIS (Ticagrelor [Brilinta] 90 MG) PO SCH ×2 (09:05→21:20)
[2017-01-23] MEDS: ATORVASTATIN 20 MG TAB PO SCH (11:34)
[2017-01-23] MEDS ORDERED: cloNIDine PATCH 0.2 MG/24HR 0.2 MG PATCH TD SCH (12:00)
[2017-01-23] MEDS ORDERED: NON-FORMULARY MEDICATION 1 EA MIS (Rosuvastatin Calcium [Crestor] 40 MG) PO SCH (12:00)
[2017-01-23] MEDS ORDERED: SOD POLYSTYRENE SULFONATE 15 GM/60 ML BTTL ONE (13:48)
[2017-01-23] MEDS: METOPROLOL TARTRATE 50 MG TAB PO SCH (16:43)
[2017-01-24] MEDS: cloNIDine HCL 0.1 MG TAB PO SCH ×3 (01:30→17:46)
[2017-01-24] MEDS: INSULIN LISPRO 100 UNITS/ML PEN SUBCU SCH ×4 (07:36→21:09)
[2017-01-24] MEDS ORDERED: MAGNESIUM SULFATE PREMIX 2GM 2 GM in PREMIX BAG 1 BAG IVPB ONE (08:31)
[2017-01-24] MEDS ORDERED: LACTULOSE SYRUP 20 GM/30 ML UD PO ONE (08:31)
[2017-01-24] MEDS: METOPROLOL TARTRATE 50 MG TAB PO SCH ×2 (09:02→17:46)
[2017-01-24] MEDS: amLODIPine BESYLATE 5 MG TAB PO SCH (09:04)
[2017-01-24] MEDS: SODIUM CHLORIDE 0.9% (FLUSH) 10 ML SYG IV SCH ×3 (09:04→21:09)
[2017-01-24] MEDS: NON-FORMULARY MEDICATION 1 EA MIS (Ticagrelor [Brilinta] 90 MG) PO SCH ×2 (09:05→20:31)
[2017-01-24] MEDS: ESCITALOPRAM 10 MG TAB PO SCH (09:05)
[2017-01-24] MEDS: INSULIN GLARGINE 54 UNIT SC SCH ×2 (09:06→21:09)
[2017-01-24] MEDS: ENOXAPARIN SODIUM 40 MG/0.4 ML SYG SUBCU SCH (09:06)
[2017-01-24] MEDS ORDERED: MAGNESIUM SULFATE PREMIX 2GM 50 ML IVPB ONE (09:23)
--- NOTE | 2017-01-24 09:50 | PN ---
SUPERVISING PHYSICIAN: Román Alvarez MD DATE: 01/24/17 SUBJECTIVE: The patient is sitting up on the side of the bed. He states he feels much better than he did yesterday. He has no complaints of chest pain, shortness of breath, nausea or vomiting. He does continue to have complaints of some diarrhea, but he has been on Lactulose. OBJECTIVE: VITAL SIGNS: Blood pressure 158/82. Respiratory rate 16. O2 saturation 98% on room air. LUNGS: Clear to auscultation bilaterally. CARDIAC: Regular rate and rhythm. ABDOMEN: Soft, nontender, nondistended. Bowel sounds are positive. EXTREMITIES: No cyanosis, clubbing or edema. NEUROLOGIC: Awake, alert and oriented times three. LABORATORY: WBC 5, hemoglobin and hematocrit are stable at 11.4 and 36.3. Platelet count 112. Sodium 139, potassium still high at 5.1, BUN 36, creatinine 1.85, calcium 8.1. Phosphorous 5.7, magnesium 1.5. All other labs and films have been reviewed via the EMR. ASSESSMENT: 1. Hyperkalemia, slightly improved, most likely due to renal injury as well as high dose of lisinopril. 2. Acute on chronic renal failure with baseline creatinine of about 2. 3. Hypertension. 4. Hypomagnesemia. 5. Hyperphosphatemia. 6. Diabetes mellitus, type 2. 7. History of sleep apnea on CPAP at home. 8. History of hyperlipidemia. 9. History of recent cardiac stent placement per Dr. Quesada about 3 weeks ago, presently in [facility]. PLAN: We will continue present supportive care. I have given him a dose of magnesium as well as one additional dose of Lactulose. I will repeat his labs in the morning. I will try to touch base with Dr. Lamb in the morning and get him an appointment with him next Sunday when Dr. Lamb is in [place]. He still is on a Catapres patch, so I am going to discontinue that. We may have to increase his metoprolol, but we will watch his blood pressure closely. If we can get his blood pressure stabilized as well as his electrolytes stabilized , he should be able to go home tomorrow or the next day. Otherwise, we will continue to monitor the patient closely and followup as needed. Dr. Alvarez is the collaborating physician and available for consultation. #[id number] JADA
[2017-01-24] MEDS: ATORVASTATIN 20 MG TAB PO SCH (12:56)
[2017-01-25] MEDS: cloNIDine HCL 0.1 MG TAB PO SCH ×2 (01:44→09:05)
[2017-01-25] MEDS: INSULIN LISPRO 100 UNITS/ML PEN SUBCU SCH ×2 (07:44→11:45)
[2017-01-25] MEDS: METOPROLOL TARTRATE 50 MG TAB PO SCH (08:02)
[2017-01-25] MEDS: amLODIPine BESYLATE 5 MG TAB PO SCH (08:05)
[2017-01-25] MEDS: ENOXAPARIN SODIUM 40 MG/0.4 ML SYG SUBCU SCH (08:05)
[2017-01-25] MEDS: ESCITALOPRAM 10 MG TAB PO SCH (08:05)
[2017-01-25] MEDS: SODIUM CHLORIDE 0.9% (FLUSH) 10 ML SYG IV SCH (08:05)
[2017-01-25] MEDS: INSULIN GLARGINE 54 UNIT SC SCH (09:01)
[2017-01-25] MEDS: NON-FORMULARY MEDICATION 1 EA MIS (Ticagrelor [Brilinta] 90 MG) PO SCH (09:04)
[2017-01-25 11:10] VITALS: BP 170/85; TEMP 96.1; O2SAT 98
--- NOTE | 2017-01-25 17:34 | DS ---
SUPERVISING PHYSICIAN: Román Alvarez M.D. DISCHARGE DIAGNOSIS: 1. Hyperkalemia that has improved most likely due to renal injury as well as high dose of Lisinopril. 2. Acute on chronic renal failure with a baseline creatinine of about 2 that has resolved. 3. Hypertension. 4. Hypomagnesemia that has now resolved. 5. Hyperphosphatemia that has now resolved. 6. Diabetes mellitus type 2. 7. Sleep apnea. 8. Hyperlipidemia. 9. History of recent cardiac stent placement per Dr. Quesada about 3 weeks ago presently on Brilinta. HISTORY OF PRESENT ILLNESS: This is a 46 year-old male patient who was seen in clinic at [facility] for his routine followup. He had 2 cardiac stents placed approximately [address] Quesada in [place]. He has had some history of elevated potassium and he has chronic renal failure and sees Dr. Josh Lamb in [place]. He had a followup to check his potassium. He had seen ERICA Mello, at [facility] and has an elevated potassium of 6.8, and was asked to go to the Emergency Room. In the Emergency Room, he was given calcium gluconate, insulin and some dextrose. His potassium came down to 6.3. He also had an elevated chloride of 116, BUN 45, creatinine 2.17. He received a dose of Kayexalate in the Emergency Room. He was admitted to the hospital. HOSPITAL COURSE: He was given 2 additional doses of Kayexalate as well as given some D5W with bicarb and gently hydrated. He was given a dose of magnesium as well as his Lisinopril was discontinued. It was replaced with Metoprolol tartrate 50 mg b.i.d. Over the next 2 days, his hemoglobin and hematocrit remained stable at 11.7 and 37.7. His sodium was 142, potassium 5, BUN 36, creatinine 2.03 with a baseline of 2.1. Glucose remained between 104 and 188. Calcium 8.3, phosphorus 5.1, magnesium 2.1. At this point he is stabilized with his blood pressures and labs, and will be discharged home. DISCHARGE PLAN: The patient will be discharged home in stable condition. He has a followup appointment with Leah Buckley on 01/30/17 at 2:40 for a followup on his hospital admission. He also has a followup appointment with Dr. Josh Lamb on 01/31/17 at 10:00 AM. It is at the [facility] here in [place]. I have given him an order for lab for a CBC, CMP, magnesium and phosphorus for Dr. Lamb when he sees him. He is to have that done on the Sunday prior to his appointment with Dr. Lamb. He is to return to the hospital or call [facility] for any further problems. DISCHARGE MEDICATIONS: 1. Lexapro. 2. ProAir. 3. Norvasc. 4. Humalog. 5. Toujeo. 6. Clonidine. 7. Brilinta. 8. Hydralazine. 9. Crestor. 10. Metoprolol. Dr. Alvarez is the collaborating physician available for consultation. #[id number] JADA
== END 2017-01-25 13:15 | disposition home or self-care (01) | DRG 641 ==
LOC: ER 20:35 → MS 23:36 → OBSVTOIN 01-23 08:56
PROVIDERS: ADMIT Nurse Practitioner Acute Care; ATTEND Nurse Practitioner Acute Care
DX: E87.5 Hyperkalemia (principal); N17.9 Acute kidney failure, unspecified; I12.9 Hypertensive chronic kidney disease with stage 1 through stage 4 chronic kidney disease, or unspecified chronic kidney disease; E11.22 Type 2 diabetes mellitus with diabetic chronic kidney disease; N18.2 Chronic kidney disease, stage 2 (mild); E83.42 Hypomagnesemia; E83.39 Other disorders of phosphorus metabolism; E78.5 Hyperlipidemia, unspecified; G47.30 Sleep apnea, unspecified; Z98.61 Coronary angioplasty status; Z88.1 Allergy status to other antibiotic agents; Z88.5 Allergy status to narcotic agent; Z88.0 Allergy status to penicillin; Z88.7 Allergy status to serum and vaccine; Z87.891 Personal history of nicotine dependence

== ENCOUNTER → 2017-01-22 | Outpatient (CLI) | payer BC | LOC: YCFC.O 12:10 | PROVIDERS: ATTEND Nurse Practitioner Family | DX: N18.3 Chronic kidney disease, stage 3 (moderate) (principal) ==

== ENCOUNTER → 2017-01-29 | Outpatient (CLI) | payer BC | LOC: LAB.O 07:35 | PROVIDERS: ATTEND Nurse Practitioner Acute Care | DX: N18.4 Chronic kidney disease, stage 4 (severe) (principal) ==

== ENCOUNTER → 2017-02-05 | Outpatient (CLI) | payer BC | END | disposition home or self-care (01) | LOC: YCFC.O 07:15 | PROVIDERS: ATTEND Nurse Practitioner Family | DX: N18.3 Chronic kidney disease, stage 3 (moderate) (principal); E83.42 Hypomagnesemia ==

== ENCOUNTER → 2017-02-13 | Outpatient (CLI) | payer BC ==
--- NOTE | 2017-02-14 11:04 | RAD ---
EXAM DESCRIPTION: Chest,2 Views CLINICAL HISTORY: DYSPNEA COMPARISON: January 10, 2017, February 01, 2015 TECHNIQUE: PA/lateral FINDINGS: The left lung remains clear but there is focal density that is both pleural and parenchymal at the lateral right lung base that is unchanged from a study one month earlier. This finding is more prominent than remote 2015 examination. With the lack of clearing further evaluation with contrast-enhanced chest CT to evaluate this region is recommended. Heart size is upper limits of normal with normal vascularity. The hilar and mediastinal structures are normal. No bony abnormalities are seen. IMPRESSION: 1. Cyst and abnormal right chest that is both pleural and parenchymal and most consistent with an inflammatory process but an underlying mass cannot be excluded. 2. Little interval improvement in the one month interval since most recent study with definite increased density from remote 2015 CT and plain film examination. The remote CT examination demonstrated a previous cavitation with air-fluid level consistent with an inflammatory process. 3. Further evaluation with contrast-enhanced chest CT evaluation is recommended. 4. The left lung hilar and mediastinal structures remain normal with new abnormalities elsewhere are not evident Electronically signed by: Román De Los Santos MD 02/14/2017 11:03 AM CDT
== END | disposition home or self-care (01) ==
LOC: LAB.O 12:27
PROVIDERS: ATTEND Nurse Practitioner Family
DX: R06.00 Dyspnea, unspecified (principal)

== ENCOUNTER → 2017-02-22 | Outpatient (CLI) | payer BC ==
--- NOTE | 2017-02-23 16:22 | CT ---
EXAM DESCRIPTION: Chest w/o Contrast CLINICAL HISTORY: DYSPNEA, UNSPECIFIED COMPARISON: CT chest without contrast 02/01/2015. Chest x-ray 02/13/2017. TECHNIQUE: Spiral-axial scans at 5.0 mm intervals through the lungs and thorax without IV contrast. Coronal and sagittal 2.0 Mm reconstructions. Total Exam DLP: 733.9 mGy-cm. This exam was performed according to our departmental dose-optimization program which includes automated exposure control, adjustment of the mA and/or kV according to patient size and/or use of iterative reconstruction technique; to reduce radiation dose to as low as reasonably achievable (ALARA). FINDINGS: Lungs are well expanded bilaterally except for chronic atelectasis or scarring in the right lower lobe which contains dilated bronchi and air cavities. This has enlarged, especially the pleural-based tissue, since the prior study. Also scarring more inferiorly in the posterior recess of the right lower lobe. Minimal scarring in the base of the left lower lobe. Small dilated airspaces bilateral upper lobes. No acute infiltrate or suspicious nodules. Stable pleural thickening. No acute pleural effusion or pneumothorax. Bilateral radiodense thyroid gland noted. No adenopathy in the base of the neck or axillary regions. Small lymph nodes in the azygos region pneumomediastinum and AP window. No enlarged lymph nodes in the axillary regions. Chronic pericardial thickening is again noted as well as coronary artery stents and calcifications. Included adrenal glands normal size and density. Normal size and density of the included spleen. Gallbladder is visualized. No subdiaphragmatic fluid or free air. Kyphosis and spondylosis of the included thoracic spine degenerative changes in the sternum. No destructive lesions. IMPRESSION: 1. Progressive scarring in the parenchyma and pleural base of the right lower lobe compared to the prior study over two years ago. Other areas of bilateral parenchymal scarring and pleural thickening are stable. No new pulmonary mass or abnormal nodules bilaterally. 2. Minimal emphysematous changes in the upper lobes again noted. 3. Small lymph nodes are new in the mediastinum but not enlarged. Electronically signed by: Sanford Estrada MD 02/23/2017 4:21 PM CDT Workstation: [id number]
== END | disposition home or self-care (01) ==
LOC: CT 17:22
PROVIDERS: ATTEND Nurse Practitioner Family
DX: R06.00 Dyspnea, unspecified (principal)

== ENCOUNTER 2017-03-02 18:25 | Inpatient (IN) | payer BC ==
--- NOTE | 2017-03-02 18:48 | ED.PDOC ---
History of Present Illness - General Chief Complaint: General Stated Complaint: Swelling of legs and hands Time Seen by Provider: 03/02/17 18:36 Source: patient, RN notes reviewed, Vital Signs reviewed Exam Limitations: no limitations - History of Present Illness Initial Comments: Patient comes in with c/o lower extremity and hand swelling. He reports he normally has some ankle swelling but now is noticing it up to his thighs along with pitting edema of his hands. He also has some mild SOB. In the past 2 months he has had coronary artery stents placed and was admitted to the hospital twice for high potassium and renal failure. He reports follow up checked of his potassium have been fine. Patient reports over the past few weeks his weight has vaired from 290's to 306. Last night his weight was 304#, today he is 310#. Reports last time he was in the hospital (~4 weeks ago) his weight was 270#'s Timing/Duration: 24 hours, getting worse Severity: severe Improving Factors: nothing Worsening Factors: nothing Associated Symptoms: shortness of breath Allergies/Adverse Reactions: Allergies Erythromycin Allergy (Verified 01/22/17 20:53) Hydrocodone Allergy (Verified 01/22/17 20:53) Penicillins Allergy (Verified 01/22/17 20:53) Influenza A (H1N1) Monovalent Vacci Adverse Reaction (Verified 01/22/17 20:53) Home Medications: Ambulatory Orders Escitalopram Oxalate [Lexapro] 20 mg PO DAILY 02/01/15 Albuterol Sulfate [Proair Hfa] 2 puff INH Q6H PRN #1 02/03/15 Insulin Glargine [Toujeo Solostar] 54 unit SC BID 09/25/15 Insulin Lispro [Humalog] 100 unit SC PRN PRN 09/25/15 amLODIPine BESYLATE [Norvasc] 10 mg PO DAILY 09/25/15 Clonidine HCl 0.3 mg PO Q8H 03/28/16 Rosuvastatin Calcium [Crestor] 40 mg PO NOON 01/10/17 Ticagrelor [Brilinta] 90 mg PO BID 01/10/17 hydrALAZINE HCl [HydrALAzine HCl] 25 mg PO Q8H 01/10/17 Metoprolol Tartrate 50 mg PO BID #60 tab 01/25/17 Review of Systems - Review of Systems Constitutional: States: no symptoms reported Respiratory: States: short of breath - mild. Denies: cough, orthopnea, wheezing Cardiology: States: edema. Denies: chest pain, palpitations, syncope Gastrointestinal/Abdominal: States: no symptoms reported Genitourinary: States: no symptoms reported Musculoskeletal: States: no symptoms reported Skin: States: no symptoms reported Neurological: States: no symptoms reported All other Systems: No Change from Baseline Past Medical History (General) - Patient Medical History Hx Seizures: No Hx Stroke: No Hx Dementia: No Hx Asthma: Yes Hx of COPD: No Hx Cardiac Disorders: No Hx Congestive Heart Failure: No Hx Pacemaker: No Hx Hypertension: Yes Hx Thyroid Disease: No Hx Diabetes: Yes Hx Gastroesophageal Reflux: No Hx Renal Disease: Yes Hx Cancer: No Hx of HIV: No Hx Hepatitis C: No Hx MRSA: No - Vaccination History Hx Tetanus, Diphtheria Vaccination: Yes Hx Influenza Vaccination: No - allergy Hx Pneumococcal Vaccination: Yes - Social History Hx Tobacco Use: No Hx Chewing Tobacco Use: No Hx Alcohol Use: No Hx Substance Use: No Hx Substance Use Treatment: No Hx Depression: No Hx Physical Abuse: No Hx Emotional Abuse: No Hx Suspected Abuse: No - Female History Patient : No Family Medical History - Family History Mother Living Status: Still Living Hx Family Hypertension: Yes - several family members Hx Cardiac Disease: Yes - dad -mi Hx Family Diabetes: Yes - several family members Father Family History: No Known Living Status: Hx Family Hypertension: Yes Hx Cardiac Disease: Yes Hx Family Diabetes: Yes Physical Exam - Physical Exam General Appearance: Alert, Comfortable, No apparent distress, Well Developed, Well Groomed, Well Hydrated, Well Nourished Neck: normal inspection Respiratory: lungs clear, normal breath sounds, no respiratory distress, no accessory muscle use Cardiovascular/Chest: regular rate, rhythm, no gallop, no murmur, other - 3+ pitting edema to knees and of bilateral hands Extremity: pedal edema Neurologic: alert, normal mood/affect, oriented x 3 Skin Exam: normal color, warm/dry Progress - Progress Progress: 03/02/17 19:[address] Patino. Will admit for edema and acute renal failure. Needs fluid restriction and gentle diuresis. Will need follow up again with Dr. Lamb. Patient reports he did see him ~ 2 weeks ago. - Results/Orders Results/Orders: Laboratory Tests 03/02/17 03/02/17 19:00 19:00 WBC 5.8 RBC 4.76 Hgb 12.5 L Hct 38.2 L MCV 80.3 MCH 26.2 L MCHC 32.8 L RDW 14.3 Plt Count 130 MPV 10.5 H Absolute Neuts (auto) 3.50 Absolute Lymphs (auto) 1.60 Absolute Monos (auto) 0.50 Absolute Eos (auto) 0.20 Absolute Basos (auto) 0.00 Neutrophils % 60.3 Lymphocytes % 27.9 Monocytes % 8.2 Eosinophils % 2.8 Basophils % 0.8 Sodium 137 Potassium 4.7 Chloride 107 Carbon Dioxide 19 L Anion Gap 15.7 BUN 54 H Creatinine 2.74 H BUN/Creatinine Ratio 19.7 Random Glucose 228 H Serum Osmolality 295.8 H Calcium 8.0 L Total Bilirubin < 0.2 L AST 21 ALT 22 Alkaline Phosphatase 56 B-Natriuretic Peptide 290.0 H* Serum Total Protein 6.0 L Albumin 3.2 Globulin 2.8 Albumin/Globulin Ratio 1.1 - EKG/XRAY/CT XRAY: chest - Persistent RLL consolidation, unchanged per Radiologist Departure - Departure Clinical Impression: Diabetes 1.5, managed as type 1 Hypertension Qualifiers: Hypertension type: essential hypertension Qualified Code(s): I10 - Essential ( primary) hypertension Time of Disposition: 19:38 Disposition: Admit Patient Condition: Fair Referrals: Leah Buckley NP [Primary Care Provider] - 1-2 Weeks Home Medications: Ambulatory Orders Escitalopram Oxalate [Lexapro] 20 mg PO DAILY 02/01/15 Albuterol Sulfate [Proair Hfa] 2 puff INH Q6H PRN #1 02/03/15 Insulin Glargine [Toujeo Solostar] 54 unit SC BID 09/25/15 Insulin Lispro [Humalog] 100 unit SC PRN PRN 09/25/15 amLODIPine BESYLATE [Norvasc] 10 mg PO DAILY 09/25/15 Clonidine HCl 0.3 mg PO Q8H 03/28/16 Rosuvastatin Calcium [Crestor] 40 mg PO NOON 01/10/17 Ticagrelor [Brilinta] 90 mg PO BID 01/10/17 hydrALAZINE HCl [HydrALAzine HCl] 25 mg PO Q8H 01/10/17 Metoprolol Tartrate 50 mg PO BID #60 tab 01/25/17 Decision To Admit - Decistion To Admit Decision to Admit Reason: Admit from ER Decision to Admit Date: 03/02/17 Decision to Admit Time: 19:37
--- NOTE | 2017-03-02 19:16 | RAD ---
EXAM DESCRIPTION: Chest,2 Views CLINICAL HISTORY: 47 years Male Edema SOB COMPARISON: Chest CT 02/22/2017 FINDINGS: Cardiac size and mediastinal contour are unchanged. There is persistent consolidation in the right lower lobe which appears unchanged when compared to the previous study. No new area of infiltrate is noted. Small amount of pleural fluid is present on the right. IMPRESSION: Persistent area of consolidation in the right lower lobe consistent with pneumonia. Small associated effusion Electronically signed by: Roya Nieves 03/02/2017 7:14 PM CDT
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
[2017-03-02] MEDS ORDERED: NITROGLYCERIN 0.4 MG 25 EA TAB SL PRN (20:45)
[2017-03-02] MEDS ORDERED: MAGNESIUM HYDROXIDE 30 ML UD PO PRN (20:45)
[2017-03-02] MEDS ORDERED: SODIUM CHLORIDE 0.9% (FLUSH) 10 ML SYG IV PRN (20:45)
[2017-03-02] MEDS ORDERED: DEXTROSE 50% 25 GM/50 ML SYG IV PRN (20:45)
[2017-03-02] MEDS ORDERED: LEVALBUTEROL NEBS 1.25 MG/3 ML VIAL NEB PRN (20:45)
[2017-03-02] MEDS ORDERED: GLUCAGON INJ 1 MG VIAL SUBCU PRN (20:45)
[2017-03-02] MEDS ORDERED: IV SET AND CAP CHANGE INJ INJ SCH (21:00)
[2017-03-02] MEDS ORDERED: CALCIUM GLUCONATE INJ 1 GM/10 ML VIAL IV ONE (21:03)
--- NOTE | 2017-03-02 21:08 | PCM.CORE ---
Physician DVT/VTE - 5 or more Very High Risk Treatments: Sequential Compression Device Pharmacological: Enoxaparin 40mg SQ Daily
[2017-03-02] MEDS ORDERED: METOPROLOL TARTRATE 50 MG TAB PO SCH (21:30)
[2017-03-02] MEDS ORDERED: ENOXAPARIN SODIUM 40 MG/0.4 ML SYG SUBCU SCH (21:30)
[2017-03-02] MEDS ORDERED: METOPROLOL TARTRATE 25 MG TAB ONE (21:56)
[2017-03-02] MEDS ORDERED: ENOXAPARIN SODIUM 30 MG/0.3 ML SYG SUBCU ONE (21:56)
[2017-03-02] MEDS: INSULIN LISPRO 100 UNITS/ML PEN SUBCU SCH (21:59)
[2017-03-02] MEDS: FUROSEMIDE INJ 40 MG/4 ML VIAL IV SCH (22:00)
[2017-03-02] MEDS: cloNIDine HCL 0.1 MG TAB PO SCH (22:03)
[2017-03-02] MEDS: INSULIN GLARGINE 54 UNIT SC SCH (22:14)
[2017-03-02] MEDS: ALBUTEROL SULFATE 2.5 MG/3 ML VIAL NEB SCH (22:27)
[2017-03-03] MEDS ORDERED: DEXTROSE 5% 1000ML 1,000 ML IVS ONE ×2 (01:17→19:37)
[2017-03-03] MEDS ORDERED: SODIUM BICARBONATE SYRINGE 50 MEQ/50 ML SYG IV ONE ×2 (01:17→19:37)
[2017-03-03] MEDS: SODIUM BICARBONATE SYRINGE 75 MEQ in DEXTROSE 5% 1000ML 1,000 ML IV PRN ×2 (01:22→20:18)
[2017-03-03] MEDS: cloNIDine HCL 0.1 MG TAB PO SCH ×3 (05:22→21:11)
[2017-03-03] MEDS: ALBUTEROL SULFATE 2.5 MG/3 ML VIAL NEB SCH ×4 (08:05→20:27)
[2017-03-03] MEDS: INSULIN LISPRO 100 UNITS/ML PEN SUBCU SCH ×4 (08:12→21:08)
[2017-03-03] MEDS: INSULIN GLARGINE 54 UNIT SC SCH ×2 (09:02→21:09)
[2017-03-03] MEDS: amLODIPine BESYLATE 5 MG TAB PO SCH (09:02)
[2017-03-03] MEDS: ESCITALOPRAM 10 MG TAB PO SCH (09:03)
[2017-03-03] MEDS: FUROSEMIDE INJ 20 MG/2 ML VIAL IV SCH ×2 (09:07→16:25)
[2017-03-03] MEDS: FUROSEMIDE INJ 40 MG/4 ML VIAL IV SCH (09:17)
--- NOTE | 2017-03-03 13:53 | PN ---
DATE: 03/03/17 SUBJECTIVE: The patient is sitting up on the side of the bed and able to ambulate nicely. Still with significant lower extremity as well as especially right hand edema. It is 3+ pitting at the mid shins bilaterally. He appears to have less edema today and he feels less dyspneic today compared to yesterday. OBJECTIVE: VITAL SIGNS: He is afebrile. Pulse 73, blood pressure 167/92, pulse oximetry 98% on room air. The patient has put out approximately 5,000 mL of urine and has noted some weight loss with one bowel movement. LUNGS: He does have some rhonchi that is especially in the right base which clears a little bit as he coughs and clears his secretions. He is encouraged to specifically take deep breaths frequently during the day. LABORATORY: Hemoglobin 11.9, white count 5,800. Chemistry shows potassium stable at 4.5, BUN has come down from 54 to 49 and creatinine has come down from 2.74 to 2.48. Sugar is fasting 180, hemoglobin A1c 7.2, calcium 8.3, albumin 2.9, troponin 0. Urinalysis showed some glycosuria, proteinuria and trace of hematuria. No cultures at this time. ASSESSMENT: 1. Acute exacerbation of chronic renal failure with renal injury showing slight improvement with gentle diuresis and supplementation. 2. Associated moderate metabolic acidosis yet with fairly normal chloride present. 3. Significant edema state possibly contributed to by polydipsia at work as well as the associated renal injury. 4. Diabetes mellitus, insulin dependent, contributing to the renal insufficiency. 5. Hypocalcemia showing improvement with supplementation. 6. Primary lung disease being followed in Pulmonary Clinic with Dr. Escalera. 7. History of empyema. 8. History of hypertension. 9. History of a periumbilical hernia currently symptom free. PLAN: Will continue with the buffered crystalloid solution yet cut back a little bit on the diuresis. increase activity, do an ambulation study to check on desaturation as to whether oxygen would be required. Reevaluation and consider outpatient therapy as stable. #[id number] [facility]
[2017-03-03] MEDS ORDERED: METOPROLOL TARTRATE 25 MG TAB ONE (15:50)
[2017-03-03] MEDS: METOPROLOL TARTRATE 50 MG TAB PO SCH (16:25)
[2017-03-03] MEDS ORDERED: ENOXAPARIN SODIUM 30 MG/0.3 ML SYG SUBCU SCH (21:00)
[2017-03-03] MEDS ORDERED: ENOXAPARIN SODIUM 40 MG/0.4 ML SYG SUBCU SCH (21:00)
[2017-03-03] MEDS ORDERED: ENOXAPARIN SODIUM 30 MG/0.3 ML SYG SUBCU ONE (21:20)
[2017-03-04] MEDS: cloNIDine HCL 0.1 MG TAB PO SCH ×2 (05:55→13:41)
[2017-03-04] MEDS: METOPROLOL TARTRATE 50 MG TAB PO SCH (07:51)
[2017-03-04] MEDS: INSULIN LISPRO 100 UNITS/ML PEN SUBCU SCH ×2 (07:57→12:18)
[2017-03-04] MEDS: ALBUTEROL SULFATE 2.5 MG/3 ML VIAL NEB SCH ×2 (08:55→13:02)
[2017-03-04] MEDS: FUROSEMIDE INJ 20 MG/2 ML VIAL IV SCH (09:11)
[2017-03-04] MEDS: ESCITALOPRAM 10 MG TAB PO SCH (09:11)
[2017-03-04] MEDS: amLODIPine BESYLATE 5 MG TAB PO SCH (09:11)
[2017-03-04] MEDS: INSULIN GLARGINE 54 UNIT SC SCH (09:11)
[2017-03-04 12:31] VITALS: BP 180/83; TEMP 97.8; O2SAT 96
--- NOTE | 2017-03-04 20:13 | DS ---
DISCHARGE DIAGNOSIS: 1. Acute exacerbation of chronic renal failure with renal injury showing slight improvement with gentle diuresis and supplementation possibly aggravated by an underlying diabetic glomerulonephropathy with associated proteinuria. 2. Associated moderate metabolic acidosis yet with fairly normal chloride present. 3. Significant edema state contributed to possibly by polydipsia as well as the associated renal injury and associated congestive heart failure of undetermined etiology. 4. Chronic diabetes mellitus insulin dependent contributing to the renal insufficiency. 5. Hypocalcemia showing improvement with supplementation. 6. Primary lung disease being followed in pulmonary clinic by Dr. Escalera possibly a sequelae and residual lung scarring from history of empyema with followup necessary. 7. History of empyema requiring surgical procedure. 8. History of hypertension. 9. History of periumbilical hernia currently symptom free. 10. Congestive heart failure of undetermined etiology. HISTORY OF PRESENT ILLNESS: This 47 year-old white male is admitted to the hospital via the Emergency Room because of severe worsening generalized edema state, especially involving hands and lower extremities with worsening dyspnea and shortness of breath. 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 He was in the hospital a couple of times in the last month for renal failure with elevated potassium level. In December, he had coronary stents placed by Dr. Quesada which seemed to have given him more energy to be able to perform some of his various activities. He does have some exertional dyspnea which has worsened recently. He is not on a diuretic nor has he been on any fluid restrictions. He is followed-up closely by Dr. Lamb in the Nephrology Clinic as well as Dr. Escalera in the Pulmonary Medicine Clinic, and in [facility] with Leah Buckley. The patient was admitted to the hospital for initiation of therapy with an elevated BNP of 290 and markedly elevated BUN of 54, creatinine 2.74 and significant weight gain evident. LABORATORY: White count remained normal. Hemoglobin initially was 12.5 and was 12.4 on discharge, stable. He is presenting with a microcytic hypochromic red blood cell indices pattern. Chemistries showed elevated BUN of 54 decreasing to 40, creatinine of 2.74 decreasing to 2.27, potassium is stable at 4.3, glucose improved from 253 to 117, hemoglobin A1c was 7.2, calcium 8.1, magnesium 2. Liver enzymes normal. Troponin zero. Beta natriuretic peptide 290 and albumin 2.9. TSH of 5.2. Urinalysis showed proteinuria, glycosuria and a small amount of hematuria. No cultures were obtained. X-ray of the chest was performed on admission and showed some consolidation in the right lower lobe which had a recent CT scan of the chest for evaluation per Dr. Escalera, Pulmonary Medicine, showing persistence and in fact more prominence of this consolidative process probably as residual of a history of empyema in that same region. Close followup is necessary. HOSPITAL COURSE: The patient showed a fairly significant weight reduction as documented in his intake and output section, and though he still had some peripheral edema at the time of discharge, it will be continued to be approached in the outpatient department. He was feeling much improved and even with ambulation studies failed to show any significant desaturation prior to his discharge. PLAN: The patient was ready for outpatient followup at the time of his discharge. He was ambulating without assistance and family members stated he looked and apparently felt much improved. He is scheduled to have a followup visit at [facility] with the family calling for an appointment this next week. Suggest that family call Dr. Quesada and try to get an appointment for an echocardiogram within the next 2 to 4 days at the [place] office. Also, family to assist with getting an appointment with Dr. Lamb in Nephrology Clinic for specific advice as to whether he needs to restart some of his buffering solutions for chronic renal insufficiency and to have close followup of his glomerulonephropathy. He is also to see Dr. Escalera in followup for the right lower lobe scarring which is persistent and especially CT scan recently being performed for review. Suggest fluid intake to be limited to under 1600 mL per 24 hours and observe closely. Closely manage the diabetes. Continue to lose weight. Follow congestive heart failure instructions. See home medications. Try Lasix daily 40 mg for the next 2 to [address] Lamb to followup with laboratory studies of kidney function, etc. Avoid inhaling welding fumes. Suggest repeating lab in the next 2 weeks with [facility]'s assistance. Try calcium supplements twice a day. Return if not improving. #[id number] [facility]
== END 2017-03-04 13:45 | disposition home or self-care (01) | DRG 683 ==
LOC: ER 18:25 → UNDOADMIN 19:59 → MS 19:59
PROVIDERS: ADMIT Emergency Medicine; ATTEND Emergency Medicine
DX: N17.9 Acute kidney failure, unspecified (principal); E87.2 Acidosis; I13.0 Hypertensive heart and chronic kidney disease with heart failure and stage 1 through stage 4 chronic kidney disease, or unspecified chronic kidney disease; Z68.41 Body mass index [BMI] 40.0-44.9, adult; E11.22 Type 2 diabetes mellitus with diabetic chronic kidney disease; N18.9 Chronic kidney disease, unspecified; I50.9 Heart failure, unspecified; E83.51 Hypocalcemia; J98.4 Other disorders of lung; R60.9 Edema, unspecified; E78.5 Hyperlipidemia, unspecified; J45.909 Unspecified asthma, uncomplicated; I25.10 Atherosclerotic heart disease of native coronary artery without angina pectoris; E66.9 Obesity, unspecified; Z88.1 Allergy status to other antibiotic agents; Z88.5 Allergy status to narcotic agent; Z88.7 Allergy status to serum and vaccine; Z87.891 Personal history of nicotine dependence; Z95.5 Presence of coronary angioplasty implant and graft; Z79.4 Long term (current) use of insulin; Z79.899 Other long term (current) drug therapy

== ENCOUNTER 2017-03-06 08:37 | Observation (INO) | payer BC ==
[2017-03-06] MEDS ORDERED: SODIUM CHLORIDE 0.9% (FLUSH) 10 ML SYG IV PRN (09:02)
[2017-03-06] MEDS ORDERED: ASPIRIN TABLET 325 MG TAB PO ONE (09:02)
--- NOTE | 2017-03-06 09:32 | RAD ---
EXAM DESCRIPTION: Chest,1 View CLINICAL HISTORY: Shortness of breath FINDINGS/ IMPRESSION: Comparison 03/02/2017 Cardiomegaly with mild central vascular engorgement. No edema. Left lung is clear. Persistent opacity/infiltrate in the right lower lobe similar appearance. Recommend follow-up until clearing Electronically signed by: Román Sim MD 03/06/2017 9:30 AM CDT
--- NOTE | 2017-03-06 09:48 | ED.PDOC ---
History of Present Illness - General Chief Complaint: Respiratory Problem Stated Complaint: shortness of breath Time Seen by Provider: 03/06/17 09:01 Source: patient, family Exam Limitations: no limitations - History of Present Illness Initial Comments: PT REPORTS PROGRESSIVELY WORSENING SOB AFTER BEING DISCHARGED FROM THE HOSPITAL ON 3 DAYS AGO. PT REPORTS HE WAS TREATED FOR FLUID OVERLOAD/CHF HOWEVER HAS NO HISTORY OF CHF IN THE PAST. PT WAS ALSO TOLD HE HAD PNEUMONIA WHILE HOSPITALIZED HOWEVER WAS NOT SENT HOME ON ABX. PT DENIES FEVER OR CHEST PAIN. Timing/Duration: days - 3 Severity: moderate Activities at Onset: none Improving Factors: rest Worsening Factors: movement Associated Symptoms: denies symptoms Allergies/Adverse Reactions: Allergies Erythromycin Allergy (Verified 03/02/17 19:42) Hydrocodone Allergy (Verified 03/02/17 19:42) Penicillins Allergy (Verified 03/02/17 19:42) Influenza A (H1N1) Monovalent Vacci Adverse Reaction (Verified 03/02/17 19:42) Home Medications: Ambulatory Orders Escitalopram Oxalate [Lexapro] 20 mg PO DAILY 02/01/15 Albuterol Sulfate [Proair Hfa] 2 puff INH Q6H PRN #1 02/03/15 Insulin Glargine [Toujeo Solostar] 54 unit SC BID 09/25/15 Insulin Lispro [Humalog] 100 unit SC PRN PRN 09/25/15 amLODIPine BESYLATE [Norvasc] 10 mg PO DAILY 09/25/15 Clonidine HCl 0.3 mg PO Q8H 03/28/16 Rosuvastatin Calcium [Crestor] 40 mg PO NOON 01/10/17 hydrALAZINE HCl [HydrALAzine HCl] 25 mg PO Q8H 01/10/17 Metoprolol Tartrate 50 mg PO BID #60 tab 01/25/17 Clonazepam 0.5 mg PO BID PRN 03/02/17 Clopidogrel Bisulfate 75 mg PO DAILY 03/02/17 Furosemide Tab [Lasix Tab] 40 mg PO QAM #20 tab 03/04/17 Review of Systems - Review of Systems Constitutional: Denies: chills, fever EENTM: Denies: blurred vision, nose congestion Respiratory: States: see HPI, cough, short of breath Cardiology: Denies: chest pain, palpitations Gastrointestinal/Abdominal: Denies: abdominal pain, nausea Musculoskeletal: Denies: back pain, muscle pain Skin: Denies: change in color, lesions Endocrine: Denies: intolerance to cold, intolerance to heat Past Medical History (General) - Patient Medical History Hx Seizures: No Hx Stroke: No Hx Dementia: No Hx Asthma: Yes Hx of COPD: No Hx Cardiac Disorders: Yes - CAD WITH 2 STENTS Hx Congestive Heart Failure: Yes Hx Pacemaker: No Hx Hypertension: Yes Hx Thyroid Disease: No Hx Diabetes: Yes Hx Gastroesophageal Reflux: No Hx Renal Disease: Yes Hx Cancer: No Hx of HIV: No Hx Hepatitis C: No Hx MRSA: No - Vaccination History Hx Tetanus, Diphtheria Vaccination: Yes Hx Influenza Vaccination: No - allergy Hx Pneumococcal Vaccination: Yes - Social History Hx Tobacco Use: No Hx Chewing Tobacco Use: No Hx Alcohol Use: No Hx Substance Use: No Hx Substance Use Treatment: No Hx Depression: No Hx Physical Abuse: No Hx Emotional Abuse: No Hx Suspected Abuse: No - Female History Patient : No Family Medical History - Family History Mother Living Status: Still Living Hx Family Hypertension: Yes - several family members Hx Cardiac Disease: Yes - dad -mi Hx Family Diabetes: Yes - several family members Father Family History: No Known Living Status: Hx Family Hypertension: Yes Hx Cardiac Disease: Yes Hx Family Diabetes: Yes Physical Exam - Physical Exam General Appearance: Alert, Comfortable, Obese Eyes, Ears, Nose, Throat Exam: normal ENT inspection Neck: normal inspection Respiratory: no respiratory distress, rales - BILATERAL Cardiovascular/Chest: regular rate, rhythm, no murmur Gastrointestinal/Abdominal: non tender, soft Extremity: pedal edema, swelling - 3+ PITTING EDEMA TO KNEES B/L Neurologic: alert, normal mood/affect, oriented x 3 Skin Exam: normal color, warm/dry Progress - Progress Progress: 03/06/17 10:32 PT RESTING COMFORTABLY, EATING A BOX LUNCH AFTER HYPOGLYCEMIC READING ON LABS. LABS AND XRAY FINDINGS DISCUSSED. AGREES WITH PLAN TO ADMIT. 03/06/17 10:47 RIGHT EJ PLACED BY ME. - Results/Orders Results/Orders: 03/06/17 09:02 Telemetry .ONCE Sodium Chloride 0.9% (Flush) [Saline Flush Syringe] 10 ml IV PRN PRN EKG Stat Pulse Ox Stat 03/06/17 09:03 Pulse Oximetry Assessment DAILY Laboratory Results - last 24 hr 03/06/17 09:30 WBC 7.9 RBC 5.11 Hgb 13.0 L Hct 41.1 L MCV 80.4 MCH 25.4 L MCHC 31.7 L RDW 14.4 Plt Count 137 MPV 10.6 H Absolute Neuts (auto) 6.00 Absolute Lymphs (auto) 1.00 Absolute Monos (auto) 0.70 Absolute Eos (auto) 0.10 Absolute Basos (auto) 0.00 Neutrophils % 75.8 Lymphocytes % 13.0 L Monocytes % 8.9 Eosinophils % 1.7 Basophils % 0.6 PT 9.4 INR 0.830 PTT (SP) 32.5 Sodium 139 Potassium 4.9 Chloride 107 Carbon Dioxide 22 Anion Gap 14.9 BUN 42 H Creatinine 2.41 H BUN/Creatinine Ratio 17.4 Random Glucose 58 L D Serum Osmolality 285.8 Calcium 8.9 Magnesium 2.0 Creatine Kinase 418 H* CK-MB (CK-2) 8.7 H* CK-MB (CK-2) % 2.08 Troponin I < 0.02 B-Natriuretic Peptide 185.0 H - EKG/XRAY/CT EKG: Sinus - @71BPM, NL INTERVALS, NL AXIS, no ST T wave changes XRAY: chest Xray Comments: PERSISTENT RLL INFILTRATE, CARDIOMEGALY WITH CENTRAL VENOUS CONGESTION Departure - Departure Clinical Impression: Healthcare-associated pneumonia, Congestive heart failure, Hypoglycemia, Pitting edema Time of Disposition: 10:35 Disposition: Admit Patient Condition: Fair Departure Forms: ED Discharge - Pt. Copy, Patient Portal Self Enrollment Referrals: Leah Buckley NP [Primary Care Provider] - 1-2 Weeks Home Medications: Ambulatory Orders Escitalopram Oxalate [Lexapro] 20 mg PO DAILY 02/01/15 Albuterol Sulfate [Proair Hfa] 2 puff INH Q6H PRN #1 02/03/15 Insulin Glargine [Toujeo Solostar] 54 unit SC BID 09/25/15 Insulin Lispro [Humalog] 100 unit SC PRN PRN 09/25/15 amLODIPine BESYLATE [Norvasc] 10 mg PO DAILY 09/25/15 Clonidine HCl 0.3 mg PO Q8H 03/28/16 Rosuvastatin Calcium [Crestor] 40 mg PO NOON 01/10/17 hydrALAZINE HCl [HydrALAzine HCl] 25 mg PO Q8H 01/10/17 Metoprolol Tartrate 50 mg PO BID #60 tab 01/25/17 Clonazepam 0.5 mg PO BID PRN 03/02/17 Clopidogrel Bisulfate 75 mg PO DAILY 03/02/17 Furosemide Tab [Lasix Tab] 40 mg PO QAM #20 tab 03/04/17 Decision To Admit - Decistion To Admit Decision to Admit Reason: Admit from ER - HCAP, CRF, CHF, EDEMA, HYPOGLYCEMIA Decision to Admit Date: 03/06/17 - CASE DISCUSSED WITH KELLY ELAM WHO AGREES TO ADMIT Decision to Admit Time: 10:36
[2017-03-06] MEDS ORDERED: FUROSEMIDE INJ 40 MG/4 ML VIAL IV ONE (09:55)
[2017-03-06] MEDS ORDERED: CEFEPIME 2 GM in SODIUM CHL 0.9% 50ML MIN-BAG+ 50 ML IVPB ONE (10:48)
[2017-03-06] MEDS ORDERED: levoFLOXacin 750MG IV 750 MG in PREMIX BAG 1 BAG IVPB ONE (10:48)
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
[2017-03-06] MEDS ORDERED: NITROGLYCERIN 0.4 MG 25 EA TAB SL PRN (11:43)
[2017-03-06] MEDS ORDERED: ACETAMINOPHEN 325 MG TAB PO PRN (11:55)
[2017-03-06] MEDS ORDERED: GLUCAGON INJ 1 MG VIAL SUBCU PRN (11:55)
[2017-03-06] MEDS ORDERED: ALBUTEROL SULFATE 2.5 MG/3 ML VIAL NEB PRN (11:55)
[2017-03-06] MEDS ORDERED: DEXTROSE 50% 25 GM/50 ML SYG IV PRN (11:55)
[2017-03-06] MEDS ORDERED: IV SET AND CAP CHANGE INJ INJ SCH ×2 (12:00)
[2017-03-06] MEDS ORDERED: NITROGLYCERIN 0.4 MG/HR PATCH TOP SCH (12:30)
[2017-03-06] MEDS: IPRATROPIUM/ALBUTEROL 3 ML VIAL INH SCH ×4 (12:45→22:10)
[2017-03-06] MEDS: cloNIDine HCL 0.1 MG TAB PO SCH ×2 (12:52→21:15)
--- NOTE | 2017-03-06 14:48 | PCM.CORE ---
Physician DVT/VTE - Nurse DVT Assessment & Total Each Risk Factor Represents 3 Points: Medical PT with Hx of [place], CHF, Severe infection/sepsis Each Risk Factor Represents 1 Point: Age 41-60 Each Risk Factor is 1 Point: Obesity (BMI >25), Serious Lung disease (pnemonia < 1month, COPD, emphysema,etc) DVT Assessment Score: 6 - 5 or more Very High Risk Treatments: Early Ambulation *, Sequential Compression Device Pharmacological: Enoxaparin 40mg SQ Daily
[2017-03-06] MEDS ORDERED: FUROSEMIDE INJ 40 MG/4 ML VIAL ONE (15:11)
[2017-03-06] MEDS ORDERED: METOPROLOL TARTRATE 50 MG TAB ONE (15:11)
[2017-03-06] MEDS ORDERED: ENOXAPARIN SODIUM 40 MG/0.4 ML SYG SUBCU ONE (15:11)
[2017-03-06] MEDS: ENOXAPARIN SODIUM 40 MG/0.4 ML SYG SUBCU SCH (15:16)
--- NOTE | 2017-03-06 16:21 | US ---
EXAM DESCRIPTION: Venous,Lower Extremity LT (accession [id number]), Venous,Lower Extremity RT (accession [id number]) CLINICAL HISTORY: edema w/0 hx CHF; hx Renal Insuf COMPARISON: None Available. TECHNIQUE: Bilateral extremity venous duplex examination with grayscale, color Doppler, and spectral pulse Doppler examination. FINDINGS: Bilateral lower extremity duplex examination from approximately the level of the inguinal ligament to below the popliteal fossa was performed. Normal flow and augmentation and compressibility throughout is present. No filling defects on involving either the left or right lower extremity venous system is seen. The common femoral vein, femoral vein, popliteal vein as well as the posterior tibial and peroneal veins are patent. IMPRESSION: Negative bilateral lower extremity DVT sonography. Electronically signed by: Román De Los Santos MD 03/06/2017 4:20 PM CDT
--- NOTE | 2017-03-06 16:21 | US ---
EXAM DESCRIPTION: Venous,Lower Extremity LT (accession [id number]), Venous,Lower Extremity RT (accession [id number]) CLINICAL HISTORY: edema w/0 hx CHF; hx Renal Insuf COMPARISON: None Available. TECHNIQUE: Bilateral extremity venous duplex examination with grayscale, color Doppler, and spectral pulse Doppler examination. FINDINGS: Bilateral lower extremity duplex examination from approximately the level of the inguinal ligament to below the popliteal fossa was performed. Normal flow and augmentation and compressibility throughout is present. No filling defects on involving either the left or right lower extremity venous system is seen. The common femoral vein, femoral vein, popliteal vein as well as the posterior tibial and peroneal veins are patent. IMPRESSION: Negative bilateral lower extremity DVT sonography. Electronically signed by: Román De Los Santos MD 03/06/2017 4:20 PM CDT
[2017-03-06] MEDS: METOPROLOL TARTRATE 50 MG TAB PO SCH (16:40)
[2017-03-06] MEDS ORDERED: FUROSEMIDE INJ 40 MG/4 ML VIAL IV SCH (17:00)
[2017-03-06] MEDS: INSULIN LISPRO 100 UNITS/ML PEN SUBCU SCH ×2 (17:51→21:11)
[2017-03-06] MEDS ORDERED: REMOVE OLD PATCH TOP SCH (21:00)
[2017-03-06] MEDS: SODIUM CHLORIDE 0.9% (FLUSH) 10 ML SYG IV PRN (21:15)
[2017-03-06] MEDS: INSULIN GLARGINE 54 UNIT SC SCH (21:25)
[2017-03-07] MEDS: cloNIDine HCL 0.1 MG TAB PO SCH ×2 (04:37→12:11)
--- NOTE | 2017-03-07 06:41 | RAD ---
EXAM: Two view chest. INDICATION: Pneumonia. COMPARISON: Chest x-ray: 03/06/2017. FINDINGS: There is a right lower lobe airspace opacity. The heart size is stable. There is no pneumothorax. The bones are unchanged. IMPRESSION: Right lower lobe airspace opacity, which may represent pneumonia. Electronically signed by: Jose F Santiago MD 03/07/2017 6:39 AM CDT Workstation: [id number]
[2017-03-07] MEDS: INSULIN LISPRO 100 UNITS/ML PEN SUBCU SCH ×2 (07:37→12:05)
[2017-03-07] MEDS: IPRATROPIUM/ALBUTEROL 3 ML VIAL INH SCH (07:58)
[2017-03-07] MEDS ORDERED: NITROGLYCERIN 0.4 MG/HR PATCH TOP SCH (09:00)
[2017-03-07] MEDS ORDERED: amLODIPine BESYLATE 5 MG TAB PO SCH (09:00)
[2017-03-07] MEDS ORDERED: CLOPIDOGREL 75 MG TAB PO SCH (09:00)
[2017-03-07] MEDS ORDERED: FUROSEMIDE 40 MG TAB PO SCH (09:00)
[2017-03-07] MEDS ORDERED: ESCITALOPRAM 10 MG TAB PO SCH (09:00)
[2017-03-07] MEDS: METOPROLOL TARTRATE 50 MG TAB PO SCH (09:12)
[2017-03-07] MEDS: SODIUM CHLORIDE 0.9% (FLUSH) 10 ML SYG IV PRN (09:13)
[2017-03-07] MEDS: ENOXAPARIN SODIUM 40 MG/0.4 ML SYG SUBCU SCH (09:13)
[2017-03-07 10:20] VITALS: BP 171/85; TEMP 97.6; O2SAT 95
[2017-03-07] MEDS: INSULIN GLARGINE 54 UNIT SC SCH (10:38)
[2017-03-07] MEDS ORDERED: ATORVASTATIN 20 MG TAB PO SCH (12:00)
[2017-03-07] MEDS ORDERED: NON-FORMULARY MEDICATION 1 EA MIS (Rosuvastatin Calcium [Crestor] 40 MG) PO SCH (12:00)
--- NOTE | 2017-03-13 16:49 | DS ---
SUPERVISING PHYSICIAN: Román Alvarez M.D. DISCHARGE DIAGNOSES: 1. Dyspnea at rest with chronic opacities noted noted on chest films with close followup needed with Dr. Escalera with no evidence of pneumonia. 2. Chronic renal insufficiency followed by Dr. Lamb. 3. Bilateral lower extremity edema with echocardiogram showing no evidence congestive heart failure likely contributed from ongoing renal insufficiency and some attributable to his calcium channel noni. 4. Chronic lung scarring with empyema history requiring surgical scraping in the past felt to be contributing to his ongoing shortness of breath with no evidence of congestive heart failure on current echocardiogram. 5. Diabetes mellitus type 2. 6. Acute exacerbation of chronic renal failure. 7. Hypertension. 8. History of periumbilical hernia, asymptomatic. HISTORY OF PRESENT ILLNESS: Mr. Leon is a 47 year-old male patient that presented initially to the Emergency Department on 03/06/17 with complaints of shortness of breath at rest and generalized lower extremity edema. 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 Escalera for a primary lung disease with chronic scarring that was noted on CT findings. He was recently hospitalized on 03/02/17 and discharged on 03/04/17 for acute exacerbation of his chronic renal failure. He was discharged on Lasix. He has a history of chronic renal failure and is currently followed by Dr. Lamb. Initial workup in the Emergency Room included a chest x-ray and per radiology interpretation there was note of mild central vascular engorgement but no edema. The left lung was noted to be clear and there was a persistent opacity infiltrate within the right lower lobe. Laboratory studies showed white count as well as a hemoglobin of 13, hematocrit 41.1 with differential showing to be within normal limits. Chemistries showed normal electrolytes with a persistent elevated BUN of 42 and creatinine of 2.41 with creatinine baseline after review of medical records showing to be around 2.2. Glucose was noted to be 58, CPK was elevated at 418 but troponin was less than 0.02. BNP was elevated at 185 which is actually decreased from last admission of 290. Initial vital signs on presentation to the Emergency Department showed that he was satting 98% on room air with blood pressure 170/93 , afebrile at 97.[address] Friedman, Emergency Room physician, after review of the past medical records and the patient's history and finding on radiographic studies had a concern that the patient was having exacerbation of congestive heart failure, although there is no formal diagnosis at time of admission as well as a possible underlying right lower lobe pneumonia. The patient was started on antibiotics to include Levaquin and Cefepime after blood cultures were completed. He was given 40 mg of Lasix IV and at that time admitted to the medical/surgical floor for further treatment and evaluation. He did have followup with Dr. Quesada scheduled from previous hospitalization on the afternoon on the same of day of admission. He was placed in observation in stable condition LABORATORY STUDIES: White count on admission was 7.9, hemoglobin 13, hematocrit 41.1. Discharge white count was 4.9, hemoglobin 12.2, hematocrit 37.8. Differential was within normal limits and never did change. Coagulation studies showed normal PT and PTT. Chemistries on admission showed normal electrolytes with an elevated BUN at 42, at discharge was 42. Admission creatinine 2.41 and after fluids was 2.25. Blood sugars ranged from 55 to 179. Magnesium was normal. Calcium normal at 8.9. CPK elevated at 418 with troponin less than 0.03. BNP was slightly elevated at 185.. RADIOLOGY: Initially, chest in the Emergency Department prior to admission showed cardiomegaly with mild central vascular engorgement and no edema. Left lung was clear. There was persistent opacity infiltrate in the right lower lobe with similar appearance. Recommend followup until cleared. He had an additional x-ray on the morning of discharge and per radiology interpretation there was right lower lobe air space which could represent pneumonia. He had a bilateral ultrasound to rule out DVT and per radiology interpretation there was negative bilateral space for lower extremity DVT by sonography. EKG in the Emergency Department prior to admission showed normal sinus rhythm. HOSPITAL COURSE: Mr. Leon was admitted as noted above in the history of present illness with concerns for right-sided pneumonia, however, given clinical findings and CBC after antibiotics were initiated in the Emergency Department, these were not continued. It was felt this was more related to congestive heart failure or exacerbation of his renal failure. He did have an appointment with Dr. Quesada who noted that he had a normal echocardiogram and at the time of this discharge was not completely available to review. The patient was given Lasix IV initially 40 mg in the Emergency Room and had good response as well as additional doses of 40 g b.i.d. and again showed good response to diuresis with improvement of his creatinine. He did have some lower extremity edema which did show some slight improvement prior to discharge. He was no longer having shortness of breath, was walking without any dyspnea. Ambulation studies were good. It was felt that he was clinically stable to be discharged because he had a followup appointment with Dr. Escalera on the day of discharge to further address the underlying lung issue on the right. I did talk with Dr. Lamb prior to discharge and he agreed with planned treatment and to increase his Lasix to 80 mg once daily for at least a week and then return to see him on the following week which is the . PLAN: The patient is discharged on 03/07/17 to have close followup with both Dr. Escalera on discharge and then Dr. Lamb as scheduled on 02/16/17. He was to resume his normal diabetic diet and take any new prescriptions as directed. Discharge new prescriptions included Lasix 80 mg daily for a week and then resume 40 mg daily until see by Dr. Lamb. No additional medications were added given there were no clinical signs of pneumonia and he was to be followed up with Dr. Escalera, lip and gate builder, on date of discharge. ACTIVITY: increase as tolerated. CONDITION ON DISCHARGE: Stable and improved. #[id number] [facility]
== END 2017-03-07 12:40 | disposition home or self-care (01) ==
LOC: ER 08:37 → INTOOBSV 11:26 → MS 11:26
PROVIDERS: ADMIT Nurse Practitioner Family; ATTEND Nurse Practitioner Family
DX: J18.9 Pneumonia, unspecified organism (principal); N17.9 Acute kidney failure, unspecified; I12.9 Hypertensive chronic kidney disease with stage 1 through stage 4 chronic kidney disease, or unspecified chronic kidney disease; N18.9 Chronic kidney disease, unspecified; R60.0 Localized edema; E11.22 Type 2 diabetes mellitus with diabetic chronic kidney disease; K42.9 Umbilical hernia without obstruction or gangrene; E78.5 Hyperlipidemia, unspecified; I25.10 Atherosclerotic heart disease of native coronary artery without angina pectoris; Z79.4 Long term (current) use of insulin; Z79.02 Long term (current) use of antithrombotics/antiplatelets; Z79.899 Other long term (current) drug therapy; Z88.0 Allergy status to penicillin; Z88.3 Allergy status to other anti-infective agents; Z88.6 Allergy status to analgesic agent; Z88.7 Allergy status to serum and vaccine; Z87.891 Personal history of nicotine dependence; Z82.3 Family history of stroke; Z83.3 Family history of diabetes mellitus; Z82.49 Family history of ischemic heart disease and other diseases of the circulatory system; Z81.8 Family history of other mental and behavioral disorders
CPT/HCPCS: 36415 ×2; 36416 ×5; 71010; 71020; 80048 ×2; 82550; 82553; 82948 ×5; 83880; 84484; 85025 ×2; 85610; 85730; 87040 ×2; 87070; 93005; 93971 ×2; 94060; 94640 ×3; 94760 ×2; 94762; 96365; 96372 ×2; 96375; 96376; 99284; G0378; J1650 ×2; J1815; J1940 ×2; J1956; J7611; J7620 ×2

== ENCOUNTER → 2017-04-05 | Outpatient (CLI) | payer BC ==
--- NOTE | 2017-04-06 14:19 | CT ---
EXAM DESCRIPTION: Chest w/o Contrast CLINICAL HISTORY: ABNORMAL FINDINGS ON DIAGNOSTIC IMAGING OF LUNG COMPARISON: Chest radiograph March 07, 2017 TECHNIQUE: Chest CT was performed without IV contrast. This exam was performed according to our departmental dose-optimization program, which includes automated exposure control, adjustment of the mA and/or kV according to patient size and/or use of iterative reconstruction technique. FINDINGS: There is no thoracic aortic aneurysm. There are a few subthreshold peritracheal lymph nodes. Sensitivity for detection of adenopathy is limited by lack of IV contrast, but no mediastinal or hilar adenopathy is seen. Is a tiny pericardial effusion. No hiatal hernia. The main pulmonary artery is also unremarkable for noncontrast technique. No pleural effusion. The central airways are clear. There is a small area of increased density in the right lower lobe which abuts the pleura and correlates with findings from patient's recent chest radiograph. No additional airspace consolidation is identified. The central airways are clear. No lung nodule is identified. Visualized portions of the upper abdomen are unremarkable for noncontrast technique. There are degenerative changes in the thoracic spine at multiple levels. IMPRESSION: Airspace consolidation involving a portion of the right lung base which does not appear significantly changed from the previous chest radiograph performed on March 07, 2017. Findings are most consistent with persistent pneumonia. Pulmonary infarct could have a similar appearance. Follow-up chest radiograph or chest CT after treatment is recommended to document complete resolution and exclude the possibility of an underlying lung lesion, although none is identified on this exam. Tiny pericardial effusion. Electronically signed by: Arturo Lopez MD 04/06/2017 2:18 PM CDT
== END | disposition home or self-care (01) ==
LOC: CT 17:07
PROVIDERS: ATTEND Internal Medicine Pulmonary Disease
DX: R91.8 Other nonspecific abnormal finding of lung field (principal); G47.33 Obstructive sleep apnea (adult) (pediatric)

== ENCOUNTER → 2017-04-18 | Outpatient (CLI) | payer BC | END | disposition home or self-care (01) | LOC: LAB.O 11:30 | PROVIDERS: ATTEND Internal Medicine Nephrology | DX: N18.9 Chronic kidney disease, unspecified (principal) ==

== ENCOUNTER → 2018-01-13 | Outpatient (CLI) | payer BC | LOC: LAB.O 07:53 | PROVIDERS: ATTEND Nurse Practitioner Family | DX: E11.37X1 Type 2 diabetes mellitus with diabetic macular edema, resolved following treatment, right eye (principal); E78.5 Hyperlipidemia, unspecified ==

== ENCOUNTER → 2018-01-30 | Outpatient (CLI) | payer BC | LOC: LAB 10:36 | PROVIDERS: ATTEND Internal Medicine Nephrology | DX: N18.4 Chronic kidney disease, stage 4 (severe) (principal) ==

== ENCOUNTER → 2018-02-11 | Outpatient (CLI) | payer BC | LOC: LAB.O 10:40 | PROVIDERS: ATTEND Nurse Practitioner Family | DX: N18.4 Chronic kidney disease, stage 4 (severe) (principal); R60.9 Edema, unspecified; I25.10 Atherosclerotic heart disease of native coronary artery without angina pectoris ==

== ENCOUNTER → 2018-04-17 | Outpatient (CLI) | payer BC ==
--- NOTE | 2018-04-18 11:12 | RAD ---
EXAM DESCRIPTION: Chest,2 Views CLINICAL HISTORY: DYSPNEA, UNSPECIFIED COMPARISON: Previous chest x-ray March 07, 2017 TECHNIQUE: PA/lateral FINDINGS: Right lower lobe pneumonia was seen on the previous exam. Heart size is large with normal pulmonary vascularity. No pleural effusion or pneumothorax. Density in the right lower lobe persists consistent with pneumonia. This appears slightly improved on the frontal view and unchanged on the lateral view. Discoid atelectasis or linear scarring in the lingula appears new or more conspicuous. Follow-up is recommended to ensure complete clearance. Lateral view shows intact sternum and T-spine. IMPRESSION: Persistent infiltrate in the right lower lobe. Electronically signed by: Michael Henderson MD 04/18/2018 11:11 AM CDT
== END ==
LOC: LAB.O 18:36
PROVIDERS: ATTEND Nurse Practitioner Family
DX: R06.00 Dyspnea, unspecified (principal)

== ENCOUNTER → 2018-04-17 | Outpatient (CLI) | payer BC | LOC: LAB.O 09:37 | PROVIDERS: ATTEND Nurse Practitioner Family | DX: E11.29 Type 2 diabetes mellitus with other diabetic kidney complication (principal); N18.4 Chronic kidney disease, stage 4 (severe) ==

== ENCOUNTER 2018-04-24 04:23 | Inpatient (IN) | payer BC ==
[2018-04-24] MEDS ORDERED: SODIUM CHLORIDE 0.9% 1000ML 1,000 ML IVS ONE ×4 (04:51→17:21)
[2018-04-24] MEDS ORDERED: PROMETHAZINE HCL INJ 25 MG in SODIUM CHLORIDE 0.9% 50ML 50 ML IVPB ONE (04:52)
[2018-04-24] MEDS ORDERED: PANTOPRAZOLE INJECTION 40 MG in SODIUM CHLORIDE 0.9% 100ML 100 ML IVPB ONE (04:52)
[2018-04-24] MEDS ORDERED: METOPROLOL TARTRATE INJ 5 MG/5 ML VIAL IV ONE (04:52)
[2018-04-24] MEDS ORDERED: cloNIDine HCL 0.1 MG TAB PO ONE ×3 (04:52→20:46)
[2018-04-24] MEDS ORDERED: PROMETHAZINE HCL INJ 25 MG/ML VIAL ONE (05:15)
[2018-04-24] MEDS ORDERED: PANTOPRAZOLE SODIUM IV 40 MG VIAL ONE ×2 (05:16→19:52)
[2018-04-24] MEDS ORDERED: SODIUM CHLORIDE 0.9% 50ML 50 ML ONE (05:16)
[2018-04-24] MEDS ORDERED: SODIUM CHLORIDE 0.9% 100ML 100 ML IVPB ONE (05:16)
--- NOTE | 2018-04-24 05:35 | RAD ---
Procedure: XR ABDOMEN SUPINE AND ERECT WITH CHEST (ABD ACUTE SERIES) Exam Date: 04/24/2018 Ordering Provider: Aroldo Alvarez Clinical Indication: nv, htn Comparison: 04/17/2018 Findings: Upright chest x-ray: Cardiomegaly. Right lower lobe pneumonia not significantly changed from prior. Small right pleural effusion. No pneumothorax. Flat and upright abdomen: Nonobstructive bowel gas pattern. There is no pneumoperitoneum. There are no suspicious calcifications. Pelvic phleboliths. No acute osseous abnormalities. Impression: 1. Right lower lobe pneumonia not significantly changed from prior. 2. Small right pleural effusion. Electronically signed by: Rafael Soliman MD 04/24/2018 5:34 AM CDT
--- NOTE | 2018-04-24 06:06 | ED.PDOC ---
History of Present Illness - General Source: patient Exam Limitations: no limitations - History of Present Illness Initial Comments: the patient's a 48-year-old male presenting to the emergency room secondary to nausea and vomiting for the last 4 days. Symptoms have been progressive. No real focal abdominal pain. No pain around his umbilical hernia site. He is morbidly obese. He is a diabetic. He does have severe hypertension. He has not been checking his blood sugars and he has not been taking his blood pressure medications or holding the ones down that he does take. No fever. No syncope or near syncope. He is hypertensive and tachycardic here today. He denies any blood in the vomitus. He has been having some stool output. No new areas of pain otherwise.he reports that he did see his primary care doctor earlier this week and was started on Levaquin for a recurrence of his right lower lobe pneumonia. Timing/Duration: unsure Severity: severe Improving Factors: nothing Worsening Factors: nothing Associated Symptoms: loss of appetite, malaise, nausea/vomiting, weakness <Aroldo Alvarez L - Last Filed: 04/24/18 06:53> <Elliot Miller - Last Filed: 04/24/18 11:31> - General Chief Complaint: GI Problem Stated Complaint: nausea, vomiting x4 days Time Seen by Provider: 04/24/18 04:40 - History of Present Illness Allergies/Adverse Reactions: Allergies Erythromycin Allergy (Verified 03/02/17 19:42) Hydrocodone Allergy (Verified 03/02/17 19:42) Penicillins Allergy (Verified 03/02/17 19:42) Influenza A (H1N1) Monovalent Vacci Adverse Reaction (Verified 03/02/17 19:42) Home Medications: Ambulatory Orders Albuterol Sulfate [Proair Hfa] 2 puff INH Q6H PRN #1 02/03/15 Insulin Glargine [Toujeo Solostar] 56 unit SC BID 09/25/15 Insulin Lispro [Humalog] 0 unit SC PRN PRN 09/25/15 Clonidine HCl 0.3 mg PO Q8H 03/28/16 Rosuvastatin Calcium [Crestor] 40 mg PO .QEVENING 01/10/17 hydrALAZINE HCl [HydrALAzine HCl] 100 mg PO Q8H 01/10/17 Metoprolol Tartrate 50 mg PO BID #60 tab 01/25/17 Clonazepam 0.5 mg PO BID PRN 03/02/17 Clopidogrel Bisulfate 75 mg PO DAILY 03/02/17 Budesonide-Formoterol Fumarate [Symbicort 160-4.5 Mcg/Act] 1 puff INH DAILY Bumetanide [Bumex] 2 mg PO DAILY 04/24/18 Diltiazem HCl Coated Beads [Cartia Xt] 240 mg PO DAILY 04/24/18 Dulaglutide [Trulicity] 1.5 ml SC WKLY 04/24/18 Fe Fum-Iron Polysacch Complex- [Fusion Plus] 1 cap PO DAILY 04/24/18 Furosemide Tab [Lasix Tab] 20 mg PO QAM 04/24/18 Montelukast [Singulair] 10 mg PO DAILY 04/24/18 Olmesartan Medoxomil [Benicar] 40 mg PO DAILY 04/24/18 Venlafaxine Xr [Effexor Xr] 75 mg PO DAILY 04/24/18 Review of Systems - Review of Systems Constitutional: States: malaise, weakness - generalized EENTM: States: no symptoms reported Respiratory: States: no symptoms reported Cardiology: States: no symptoms reported Gastrointestinal/Abdominal: States: nausea, vomiting. Denies: constipation, diarrhea Genitourinary: States: no symptoms reported Musculoskeletal: States: no symptoms reported Skin: States: no symptoms reported Neurological: States: no symptoms reported Endocrine: States: no symptoms reported All other Systems: No Change from Baseline <Aroldo Alvarez - Last Filed: 04/24/18 06:53> Past Medical History (General) - Patient Medical History Hx Seizures: No Hx Stroke: No Hx Dementia: No Hx Asthma: Yes Hx of COPD: Yes Hx Cardiac Disorders: Yes - stents Hx Congestive Heart Failure: Yes Hx Pacemaker: No Hx Hypertension: Yes Hx Thyroid Disease: No Hx Diabetes: Yes Hx Gastroesophageal Reflux: No Hx Renal Disease: Yes Hx Cancer: No Hx of HIV: No Hx Hepatitis C: No Hx MRSA: No Surgical History: other - Vaccination History Hx Tetanus, Diphtheria Vaccination: No Hx Influenza Vaccination: No Hx Pneumococcal Vaccination: Yes - 2017 Immunizations Up to Date: No - Social History Hx Tobacco Use: No Hx Chewing Tobacco Use: No Hx Alcohol Use: No Hx Substance Use: No Hx Substance Use Treatment: No Hx Depression: No Hx Physical Abuse: No Hx Emotional Abuse: No Hx Suspected Abuse: No - Female History Patient : No <Aroldo Alvarez - Last Filed: 04/24/18 06:53> - Patient Medical History Hx Other PMH: Yes - unresolved PNA Surgical History: other - bronchoscopy,decortication <Elliot Miller - Last Filed: 04/24/18 11:31> Family Medical History - Family History Mother Living Status: Still Living Hx Family Hypertension: Yes - several family members Hx Cardiac Disease: Yes - dad -mi Hx Family Diabetes: Yes - several family members Father Family History: No Known Living Status: Hx Family Hypertension: Yes Hx Cardiac Disease: Yes Hx Family Diabetes: Yes <Aroldo Alvarez - Last Filed: 04/24/18 06:53> Physical Exam - Physical Exam General Appearance: Alert, No apparent distress Eye Exam: bilateral normal Ears, Nose, Throat: hearing grossly normal, normal ENT inspection Neck: full range of motion, supple Respiratory: lungs clear, normal breath sounds, no respiratory distress, no accessory muscle use Cardiovascular/Chest: normal peripheral pulses, no edema, tachycardia Peripheral Pulses: radial,right: 2+, radial,left: 2+ Gastrointestinal/Abdominal: non tender, soft, other - morbidly obese with a large umbilical hernia that is nontender to palpation. Rectal Exam: deferred Back Exam: no CVA tenderness, no vertebral tenderness Extremity: normal range of motion, non-tender, no pedal edema, no calf tenderness, normal capillary refill Neurologic: fisher troll line II-XII nml as tested, alert, normal mood/affect, oriented x 3 Skin Exam: normal color Comments: Vital Signs - 24 hr 04/24/18 04/24/18 04:30 04:42 Temperature 98.3 F Pulse Rate [ 128 H 127 H left] Respiratory 20 22 Rate Blood Pressure 206/113 [left] O2 Sat by Pulse 94 L Oximetry <Aroldo Alvarez - Last Filed: 04/24/18 06:53> Progress - Progress Progress: 04/24/18 06:53 there is no delay in definitive diagnosis as laboratory work has been difficult to draw on this patient. The patient will be followed by Dr. Miller, the oncoming emergency physician. Blood pressures are improving. He is feeling a little better. <Antonio,Aroldo L - Last Filed: 04/24/18 06:53> - Results/Orders Results/Orders: 04/24/18 04:50 Telemetry .CONTINUOUS 04/24/18 07:17 PTH,INTACT W/O CALCIIUM Routine 04/24/18 08:33 URINE DRUG SCREEN, 7 ASSAY Stat Laboratory Results - last 24 hr 04/24/18 04/24/18 04/24/18 04:51 05:40 06:55 WBC 8.0 RBC 5.18 Hgb 13.1 L Hct 42.0 MCV 81.0 MCH 25.2 L MCHC 31.3 L RDW 14.8 H Plt Count 186 MPV 9.7 Absolute Neuts (auto) 5.80 Absolute Lymphs (auto) 1.20 Absolute Monos (auto) 0.90 H Absolute Eos (auto) 0.10 Absolute Basos (auto) 0.00 Neutrophils % 72.5 Lymphocytes % 14.9 L Monocytes % 10.9 H Eosinophils % 1.4 Basophils % 0.3 Sodium 138 Potassium 5.6 H Chloride 100 L Carbon Dioxide 29 Anion Gap 14.6 BUN 66 H Creatinine 4.35 H BUN/Creatinine Ratio 15.2 Random Glucose 230 H Serum Osmolality 302.0 H Lactic Acid Uric Acid Calcium 12.3 H* Phosphorus Magnesium 2.0 Total Bilirubin 0.9 AST 26 ALT 19 Alkaline Phosphatase 51 Creatine Kinase 175 H CK-MB (CK-2) 4.5 H CK-MB (CK-2) % 2.57 Troponin I 0.05 B-Natriuretic Peptide 258.0 H* Serum Total Protein 7.2 Albumin 3.4 Globulin 3.8 H Albumin/Globulin Ratio 0.9 L Amylase 103 H Lipase 52 H TSH 4.73 Urine Color Yellow Urine Appearance Clear Urine pH 6.0 Ur Specific [place] 1.020 Urine Protein >=300 H Urine Glucose (UA) 500 H Urine Ketones Trace Urine Blood Small H Urine Nitrite Negative Urine Bilirubin Negative Urine Urobilinogen 0.2 Ur Leukocyte Esterase Negative Urine RBC 0-1 Urine WBC 0-1 Ur Epithelial Cells 0-1 Urine Bacteria 0 04/24/18 04/24/18 07:00 07:15 WBC RBC Hgb Hct MCV MCH MCHC RDW Plt Count MPV Absolute Neuts (auto) Absolute Lymphs (auto) Absolute Monos (auto) Absolute Eos (auto) Absolute Basos (auto) Neutrophils % Lymphocytes % Monocytes % Eosinophils % Basophils % Sodium Potassium Chloride Carbon Dioxide Anion Gap BUN Creatinine BUN/Creatinine Ratio Random Glucose Serum Osmolality Lactic Acid 1.5 Uric Acid 8.4 H Calcium Phosphorus 6.8 H Magnesium Total Bilirubin AST ALT Alkaline Phosphatase Creatine Kinase CK-MB (CK-2) CK-MB (CK-2) % Troponin I B-Natriuretic Peptide Serum Total Protein Albumin Globulin Albumin/Globulin Ratio Amylase Lipase TSH Urine Color Urine Appearance Urine pH Ur Specific Compton Urine Protein Urine Glucose (UA) Urine Ketones Urine Blood Urine Nitrite Urine Bilirubin Urine Urobilinogen Ur Leukocyte Esterase Urine RBC Urine WBC Ur Epithelial Cells Urine Bacteria 04/24/18 PTH,INTACT W/O CALCIIUM Routine 04/24/18 04:50 Telemetry .CONTINUOUS Laboratory Results - last 24 hr 04/24/18 04/24/18 04/24/18 04:51 05:40 06:55 WBC 8.0 RBC 5.18 Hgb 13.1 L Hct 42.0 MCV 81.0 MCH 25.2 L MCHC 31.3 L RDW 14.8 H Plt Count 186 MPV 9.7 Absolute Neuts (auto) 5.80 Absolute Lymphs (auto) 1.20 Absolute Monos (auto) 0.90 H Absolute Eos (auto) 0.10 Absolute Basos (auto) 0.00 Neutrophils % 72.5 Lymphocytes % 14.9 L Monocytes % 10.9 H Eosinophils % 1.4 Basophils % 0.3 Sodium 138 Potassium 5.6 H Chloride 100 L Carbon Dioxide 29 Anion Gap 14.6 BUN 66 H Creatinine 4.35 H BUN/Creatinine Ratio 15.2 Random Glucose 230 H Serum Osmolality 302.0 H Lactic Acid Uric Acid Calcium 12.3 H* Phosphorus Magnesium 2.0 Total Bilirubin 0.9 AST 26 ALT 19 Alkaline Phosphatase 51 Creatine Kinase 175 H CK-MB (CK-2) 4.5 H CK-MB (CK-2) % 2.57 Troponin I 0.05 B-Natriuretic Peptide 258.0 H* Serum Total Protein 7.2 Albumin 3.4 Globulin 3.8 H Albumin/Globulin Ratio 0.9 L Amylase 103 H Lipase 52 H TSH 4.73 Urine Color Yellow Urine Appearance Clear Urine pH 6.0 Ur Specific [place] 1.020 Urine Protein >=300 H Urine Glucose (UA) 500 H Urine Ketones Trace Urine Blood Small H Urine Nitrite Negative Urine Bilirubin Negative Urine Urobilinogen 0.2 Ur Leukocyte Esterase Negative Urine RBC 0-1 Urine WBC 0-1 Ur Epithelial Cells 0-1 Urine Bacteria 0 Urine Opiates Screen Urine Barbiturates Ur Phencyclidine Scrn U Amphetamin/Meth Scrn U Benzodiazepines Scrn U Cocaine Metab Screen U Cannabinoids Screen 04/24/18 04/24/18 04/24/18 07:00 07:15 08:51 WBC RBC Hgb Hct MCV MCH MCHC RDW Plt Count MPV Absolute Neuts (auto) Absolute Lymphs (auto) Absolute Monos (auto) Absolute Eos (auto) Absolute Basos (auto) Neutrophils % Lymphocytes % Monocytes % Eosinophils % Basophils % Sodium Potassium Chloride Carbon Dioxide Anion Gap BUN Creatinine BUN/Creatinine Ratio Random Glucose Serum Osmolality Lactic Acid 1.5 Uric Acid 8.4 H Calcium Phosphorus 6.8 H Magnesium Total Bilirubin AST ALT Alkaline Phosphatase Creatine Kinase CK-MB (CK-2) CK-MB (CK-2) % Troponin I B-Natriuretic Peptide Serum Total Protein Albumin Globulin Albumin/Globulin Ratio Amylase Lipase TSH Urine Color Urine Appearance Urine pH Ur Specific Compton Urine Protein Urine Glucose (UA) Urine Ketones Urine Blood Urine Nitrite Urine Bilirubin Urine Urobilinogen Ur Leukocyte Esterase Urine RBC Urine WBC Ur Epithelial Cells Urine Bacteria Urine Opiates Screen Negative Urine Barbiturates Negative Ur Phencyclidine Scrn Negative U Amphetamin/Meth Scrn Negative U Benzodiazepines Scrn Negative U Cocaine Metab Screen Negative U Cannabinoids Screen Negative - EKG/XRAY/CT XRAY: chest - RLL PNA - Additional EKG/XRAY/Consults Comments: ABD-US-no acute abnormalities <Elliot Miller - Last Filed: 04/24/18 11:31> Departure <Aroldo Alvarez L - Last Filed: 04/24/18 06:53> - Departure Time of Disposition: 11:25 <Elliot Miller - Last Filed: 04/24/18 11:31> - Departure Clinical Impression: Hypertensive urgency, Medical non-compliance, Hypercalcemia, Dehydration, Unresolved pneumonia Uncontrollable nausea and vomiting Qualifiers: Vomiting type: unspecified Qualified Code(s): R11.2 - Nausea with vomiting, unspecified [id number] renal failure Qualifiers: Acute renal failure type: unspecified Chronic kidney disease stage: unspecified stage Qualified Code(s): N17.9 - Acute kidney failure, unspecified Disposition: Admit Patient Condition: Fair Home Medications: Ambulatory Orders Albuterol Sulfate [Proair Hfa] 2 puff INH Q6H PRN #1 02/03/15 Insulin Glargine [Toujeo Solostar] 56 unit SC BID 09/25/15 Insulin Lispro [Humalog] 0 unit SC PRN PRN 09/25/15 Clonidine HCl 0.3 mg PO Q8H 03/28/16 Rosuvastatin Calcium [Crestor] 40 mg PO .QEVENING 01/10/17 hydrALAZINE HCl [HydrALAzine HCl] 100 mg PO Q8H 01/10/17 Metoprolol Tartrate 50 mg PO BID #60 tab 01/25/17 Clonazepam 0.5 mg PO BID PRN 03/02/17 Clopidogrel Bisulfate 75 mg PO DAILY 03/02/17 Budesonide-Formoterol Fumarate [Symbicort 160-4.5 Mcg/Act] 1 puff INH DAILY Bumetanide [Bumex] 2 mg PO DAILY 04/24/18 Diltiazem HCl Coated Beads [Cartia Xt] 240 mg PO DAILY 04/24/18 Dulaglutide [Trulicity] 1.5 ml SC WKLY 04/24/18 Fe Fum-Iron Polysacch Complex- [Fusion Plus] 1 cap PO DAILY 04/24/18 Furosemide Tab [Lasix Tab] 20 mg PO QAM 04/24/18 Montelukast [Singulair] 10 mg PO DAILY 04/24/18 Olmesartan Medoxomil [Benicar] 40 mg PO DAILY 04/24/18 Venlafaxine Xr [Effexor Xr] 75 mg PO DAILY 04/24/18 Decision To Admit - Decistion To Admit Decision to Admit Reason: Admit from ER Decision to Admit Date: 04/24/18 - D/W Anna Zarco-ANP/Hospitalist Decision to Admit Time: 11:26 <Elliot Miller - Last Filed: 04/24/18 11:31>
--- NOTE | 2018-04-24 11:11 | US ---
EXAM DESCRIPTION: Abdomen,Complete CLINICAL HISTORY: N/V;elevated lipase,renal failure COMPARISON: None available. FINDINGS: Aorta: Nonaneurysmal. IVC: Visualized portions normal. Ascites: None. Pancreas: The pancreas is partially obscured by superimposed bowel gas. No pancreatic mass or definite pancreatic duct dilation is identified. Liver: No mass, hepatomegaly or biliary duct dilation. Physiologic flow is noted in the main portal vein. Gallbladder/Common Duct: No stones, wall thickening, pericholecystic fluid or common duct dilation. Right Kidney: No stones, hydronephrosis, atrophy or mass. Spleen: The spleen is enlarged, measuring just over 14 cm in length. No mass or other focal splenic lesion. No perisplenic fluid. Left Kidney: No stones, hydronephrosis, atrophy or mass. Incidentally noted is a 1.4 cm uncomplicated inferior pole left renal cortical cyst. IMPRESSION: No cholelithiasis, hydronephrosis or additional abnormality to explain patient's symptoms. Mild splenomegaly. Electronically signed by: Arturo Lopez MD 04/24/2018 11:10 AM CDT
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
[2018-04-24] MEDS ORDERED: NON-FORMULARY MEDICATION 1 EA MIS (Rosuvastatin Calcium [Crestor] 40 MG) PO SCH (14:00)
[2018-04-24] MEDS ORDERED: ALBUTEROL SULFATE 2.5 MG/3 ML VIAL NEB PRN (14:01)
[2018-04-24] MEDS ORDERED: ATORVASTATIN 20 MG TAB PO SCH (14:30)
[2018-04-24] MEDS ORDERED: SODIUM CHLORIDE 0.45% 1000ML 1,000 ML IV ONE ×2 (14:32→22:00)
[2018-04-24] MEDS ORDERED: ONDANSETRON INJ 4 MG/2 ML VIAL IV PRN (14:32)
[2018-04-24] MEDS ORDERED: GLUCAGON INJ 1 MG VIAL SUBCU PRN (14:32)
[2018-04-24] MEDS ORDERED: SODIUM CHLORIDE 0.9% (FLUSH) 10 ML SYG IV PRN (14:32)
[2018-04-24] MEDS ORDERED: DEXTROSE 50% 25 GM/50 ML SYG IV PRN (14:32)
[2018-04-24] MEDS ORDERED: IV SET AND CAP CHANGE INJ INJ SCH (15:00)
[2018-04-24] MEDS ORDERED: DULAGLUTIDE SC SCH (15:00)
[2018-04-24] MEDS: cloNIDine HCL 0.1 MG TAB PO SCH ×2 (15:27→22:11)
[2018-04-24] MEDS: ALBUTEROL SULFATE 2.5 MG/3 ML VIAL NEB SCH ×2 (16:30→20:35)
[2018-04-24] MEDS: INSULIN LISPRO 100 UNITS/ML PEN SUBCU SCH ×2 (17:34→20:51)
[2018-04-24] MEDS: NON-FORMULARY MEDICATION 1 EA MIS (Budesonide-Formoterol Fumarate [Symbicort 160-4.5 Mcg/A INH SCH (20:35)
[2018-04-24] MEDS: DULAGLUTIDE SC SCH ×2 (20:50→21:42)
[2018-04-24] MEDS: INSULIN GLARGINE SC SCH (20:52)
[2018-04-24] MEDS: METOPROLOL TARTRATE 50 MG TAB PO SCH (20:54)
[2018-04-24] MEDS: ENOXAPARIN SODIUM 30 MG/0.3 ML SYG SUBCU SCH (20:54)
[2018-04-24] MEDS: SODIUM CHLORIDE 0.9% (FLUSH) 10 ML SYG IV SCH (20:55)
[2018-04-24] MEDS ORDERED: cefTRIAXone SODIUM 1 GM VIAL ONE (22:45)
[2018-04-24] MEDS ORDERED: SODIUM CHL 0.9% 50ML MIN-BAG+ 50 ML IVPB ONE (22:45)
[2018-04-24] MEDS: cefTRIAXone SODIUM 1 GM in SODIUM CHL 0.9% 50ML MIN-BAG+ 50 ML IVPB SCH (22:46)
[2018-04-24] MEDS ORDERED: SODIUM CHLORIDE 0.9% 250ML 250 ML ONE (22:53)
[2018-04-24] MEDS ORDERED: AZITHROMYCIN IV 500 MG VIAL IVPB ONE (22:53)
[2018-04-24] MEDS: AZITHROMYCIN IV 500 MG in SODIUM CHLORIDE 0.9% 250ML 250 ML IVPB SCH (23:33)
[2018-04-25] MEDS: cloNIDine HCL 0.1 MG TAB PO SCH ×3 (05:51→22:20)
[2018-04-25] MEDS: PANTOPRAZOLE SODIUM IV 40 MG VIAL IV SCH (06:07)
[2018-04-25] MEDS ORDERED: LOSARTAN POTASSIUM 100 MG TAB ONE (07:00)
[2018-04-25] MEDS ORDERED: VENLAFAXINE HCL TAB 75 MG TAB ONE (07:01)
[2018-04-25] MEDS ORDERED: BUMETANIDE TAB 2 MG TAB ONE (07:01)
[2018-04-25] MEDS: INSULIN LISPRO 100 UNITS/ML PEN SUBCU SCH ×4 (07:23→21:42)
[2018-04-25] MEDS: BUMETANIDE TAB 2 MG TAB PO SCH (08:25)
[2018-04-25] MEDS: CLOPIDOGREL 75 MG TAB PO SCH (08:27)
[2018-04-25] MEDS: METOPROLOL TARTRATE 50 MG TAB PO SCH ×2 (08:27→21:43)
[2018-04-25] MEDS: LOSARTAN POTASSIUM 100 MG TAB PO SCH (08:29)
[2018-04-25] MEDS: MONTELUKAST 10 MG TAB PO SCH (08:30)
[2018-04-25] MEDS: VENLAFAXINE XR 75 MG CAP PO SCH (08:45)
[2018-04-25] MEDS: NON-FORMULARY MEDICATION 1 EA MIS (Budesonide-Formoterol Fumarate [Symbicort 160-4.5 Mcg/A INH SCH ×2 (08:47→20:10)
[2018-04-25] MEDS: ALBUTEROL SULFATE 2.5 MG/3 ML VIAL NEB SCH ×4 (08:47→20:10)
[2018-04-25] MEDS ORDERED: NON-FORMULARY MEDICATION 1 EA MIS (Olmesartan Medoxomil [Benicar] 40 MG) PO SCH (09:00)
[2018-04-25] MEDS ORDERED: DILTIAZEM HCL COATED BEADS 240 MG PO SCH (09:00)
[2018-04-25] MEDS: INSULIN GLARGINE SC SCH ×2 (10:11→21:39)
[2018-04-25] MEDS ORDERED: METOPROLOL TARTRATE 50 MG TAB PO ONE (10:17)
[2018-04-25] MEDS: SODIUM CHLORIDE 0.9% (FLUSH) 10 ML SYG IV SCH ×2 (10:19→21:37)
[2018-04-25] MEDS ORDERED: MAGNESIUM SULFATE PREMIX 2GM 2 GM in PREMIX BAG 1 BAG IVPB ONE (10:30)
--- NOTE | 2018-04-25 11:12 | PN ---
SUPERVISING PHYSICIAN: Tashi Khan MD DATE: 04/25/18 SUBJECTIVE: The patient is sitting up in his chair in his hospital room. He feels much better and he would like to get up and walk around. 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 He does complain of some mild wheezing which he said he always has problems with, but he has had no shortness of breath, chest pain, nausea or vomiting. OBJECTIVE: VITAL SIGNS: Temperature 97.9. Heart rate 91. Blood pressure 190/94. Respiratory rate 20. O2 saturation 95% on room air. RESPIRATORY: A few scattered expiratory wheezes throughout the upper lung le, but very mild. Otherwise, diminished at the bases. CARDIAC: Regular rate and rhythm. GASTROINTESTINAL: Abdomen is soft, obese, round, nontender. Bowel sounds are positive. EXTREMITIES: Trace pedal edema. No cyanosis or clubbing. NEUROLOGIC: Awake, alert and oriented times three. LABORATORY: Blood sugars have run between 165 and 278. Sodium 137, potassium improved slightly to 5.5, chloride 105, BUN 56, creatinine slightly improved to 4.13. Phosphorous 5.3, magnesium 1.6, calcium improved to 9.6. WBCs 6.8, hemoglobin 11.2, hematocrit 35.9. All other labs and films have been reviewed via the EMR. ASSESSMENT: 1. Gastroenteritis with nausea, vomiting and dehydration, improved. 2. Acute on chronic kidney failure with a baseline creatinine of 3.5. His admission creatinine is 4.35. It is now down to 4.1. 3. Hypercalcemia, most likely secondary to dehydration, improved. A PTH is pending. 4. Hyperkalemia, most likely due to chronic kidney disease and exacerbated by dehydration. 5. Diabetes mellitus, type 2. 6. Malignant hypertension. 7. Congestive heart failure of unknown etiology with no current echocardiogram to review with BNP of 258 on admission. 8. Recent diagnosis of pneumonia, treated with Levaquin in the outpatient setting, now on azithromycin and ceftriaxone. PLAN: We will continue present supportive care. I have spoken to Dr. Lamb and with my concerns about his elevated blood pressure, his recommendations are that we change his losartan to valsartan as losartan contains potassium and that may be keeping his potassium somewhat elevated, so I have changed him to Diovan 160 mg daily. He also recommended I increase his metoprolol due to his continued elevated blood pressure, so I have increased his metoprolol tartrate to 100 mg b.i.d. His calcium has normalized. I have also given him some magnesium supplement and we will check his lab as well as his magnesium and phosphorous in the morning. I have also done a chest x-ray. Hopefully, it will normalize in the next one to two days and he can be discharged home with close followup with Dr. Lamb. We will continue to monitor the patient closely and follow as needed. #[id number] [facility]ENTERServ[facility]
[2018-04-25] MEDS ORDERED: MAGNESIUM SULFATE PREMIX 2GM 50 ML IVPB ONE (11:27)
[2018-04-25] MEDS ORDERED: TRULICITY SC SCH (21:00)
[2018-04-25] MEDS: ENOXAPARIN SODIUM 30 MG/0.3 ML SYG SUBCU SCH (21:37)
[2018-04-25] MEDS ORDERED: SODIUM CHLORIDE 0.9% 250ML 250 ML ONE (23:20)
[2018-04-25] MEDS ORDERED: SODIUM CHL 0.9% 50ML MIN-BAG+ 50 ML IVPB ONE (23:20)
[2018-04-25] MEDS ORDERED: cefTRIAXone SODIUM 1 GM VIAL ONE (23:20)
[2018-04-25] MEDS ORDERED: AZITHROMYCIN IV 500 MG VIAL IVPB ONE (23:20)
[2018-04-25] MEDS: cefTRIAXone SODIUM 1 GM in SODIUM CHL 0.9% 50ML MIN-BAG+ 50 ML IVPB SCH (23:26)
[2018-04-25] MEDS: AZITHROMYCIN IV 500 MG in SODIUM CHLORIDE 0.9% 250ML 250 ML IVPB SCH (23:55)
[2018-04-26] MEDS: PANTOPRAZOLE SODIUM IV 40 MG VIAL IV SCH (06:29)
[2018-04-26] MEDS: cloNIDine HCL 0.1 MG TAB PO SCH ×2 (06:30→13:59)
--- NOTE | 2018-04-26 06:57 | RAD ---
EXAM DESCRIPTION: Chest,2 Views CLINICAL HISTORY:48 years Male, pna Comparison: April 17, 2018 FINDINGS: Right basilar opacities, slightly improved from prior No pleural effusion. No pneumothorax. Cardiac and mediastinal silhouette is unremarkable. No acute osseous abnormality. Soft tissues are unremarkable. IMPRESSION: Slightly improved right basilar opacities suspicious for pneumonia. Follow-up recommended to ensure resolution. Electronically signed by: Virgil Christianson MD 04/26/2018 6:56 AM CDT
[2018-04-26] MEDS: INSULIN LISPRO 100 UNITS/ML PEN SUBCU SCH ×2 (07:21→12:20)
[2018-04-26] MEDS: ALBUTEROL SULFATE 2.5 MG/3 ML VIAL NEB SCH ×3 (08:32→16:30)
[2018-04-26] MEDS: NON-FORMULARY MEDICATION 1 EA MIS (Budesonide-Formoterol Fumarate [Symbicort 160-4.5 Mcg/A INH SCH (08:32)
[2018-04-26] MEDS ORDERED: VALSARTAN 80 MG TAB PO SCH (09:00)
[2018-04-26] MEDS: VENLAFAXINE XR 75 MG CAP PO SCH (09:03)
[2018-04-26] MEDS: CLOPIDOGREL 75 MG TAB PO SCH (09:03)
[2018-04-26] MEDS: MONTELUKAST 10 MG TAB PO SCH (09:03)
[2018-04-26] MEDS: INSULIN GLARGINE SC SCH (09:03)
[2018-04-26] MEDS: BUMETANIDE TAB 2 MG TAB PO SCH (09:03)
[2018-04-26] MEDS: LOSARTAN POTASSIUM 100 MG TAB PO SCH (09:03)
[2018-04-26] MEDS: SODIUM CHLORIDE 0.9% (FLUSH) 10 ML SYG IV SCH (09:04)
[2018-04-26] MEDS: METOPROLOL TARTRATE 50 MG TAB PO SCH (09:06)
[2018-04-26 14:34] VITALS: TEMP 97.9; O2SAT 99
[2018-04-26 15:35] VITALS: BP 176/95
--- NOTE | 2018-04-29 14:30 | DS ---
SUPERVISING PHYSICIAN: Tashi Khan MD ADMISSION DIAGNOSIS: 1. Gastroenteritis with nausea and vomiting. 2. Acute on chronic kidney failure with a baseline creatinine of 3.5. His admission creatinine is 4.35. 3. Hypercalcemia, most likely secondary to dehydration, but cannot rule out hyperparathyroidism. PTH collected. 4. Hyperkalemia, most likely due to chronic kidney disease and exacerbated by dehydration. 5. Diabetes mellitus, type 2. 6. Malignant hypertension. 7. Congestive heart failure of unknown etiology with no current echocardiogram to review with BNP of 258 on admission. 8. Recent diagnosis of pneumonia, being treated with Levaquin in the outpatient setting. DISCHARGE DIAGNOSIS: 1. Gastroenteritis with nausea, vomiting and dehydration, improved with treatment and fluid. 2. Acute on chronic kidney failure with a baseline creatinine of 3.5 with creatinine stable, likely exacerbated by previous antibiotics to include Levaquin. 3. Hypercalcemia due to dehydration, improved back to baseline with a low PTH without calcium at 9. 4. Hyperkalemia, most likely secondary to dehydration and exacerbated by chronic kidney disease with PTH low at discharge. 5. Diabetes mellitus, type 2, stable. 6. Malignant hypertension on admission, but improvement with management of medications. 7. Congestive heart failure of uncertain etiology with no current echocardiogram to review at time of admission with elevated BNP of 258. 8. Community acquired pneumonia, having been treated as an outpatient with Levaquin and now on azithromycin and Rocephin. REASON FOR HOSPITALIZATION: Mr. Leon is a 48-year-old male patient who presented to the Emergency Room secondary to nausea and vomiting for four days prior to admission. He noted that the nausea and vomiting was not too bad around Sunday, but it had increasingly worsened over the four days prior to his admission and at that point he was doing it about every 10 to 15 minutes. He is morbidly obese and he also has fairly severe hypertension. He was unable to keep down any of his medications. He also has chronic renal insufficiency and is followed by Dr. Lamb. In the Emergency Room, he was given 1 liter of fluids, some Protonix as well as Phenergan. The nausea and vomiting was controlled. He was very hypertensive with his blood pressure as high as 206/113. He was given some clonidine and his blood pressure did come down to 165/95. Abdominal ultrasound showed no cholelithiasis, hydronephrosis or additional abnormality to explain the patient's symptoms. He had been treated by his primary care provider, Leah Buckley, for pneumonia recently on Levaquin. He was then admitted to the hospital for acute gastroenteritis with acute on chronic kidney failure and electrolyte imbalance. LABORATORY: CBC on admission showed white count 8,000. At discharge, it was 5, 700. Hemoglobin and hematocrit were fairly stable at 10.4 and 33.1, respectively, with a platelet count of 141,000. Differential was without a left shift. Chemistries on admission showed hyperkalemia with potassium 5.5, BUN 56, creatinine. 4.13. Calcium was 9.6, uric acid 8.4. Liver functions all within normal limits. Prior to discharge, electrolytes ad improved with potassium 5.0, sodium slightly low at 134, BUN 15, creatinine down to 4.0. Phosphorous initially was 6.8 on admission and prior to discharge was down to 5.8. Magnesium was low, down to 1.6. After replacement and prior to discharge was 1.9. Liver functions remained within normal limits. PTH biointact without calcium that was low at 9. TSH was normal at 4.73. Amylase was elevated initially at 103 and lipase showing slight elevation at 52. RADIOLOGY: Initially in the Emergency Room, a had abdominal x-ray and per radiologic interpretation showed right lower lobe pneumonia without significant change from previous exams and a small right pleural effusion . He also had abdominal ultrasound prior to admission and per radiologic interpretation, there was no cholelithiasis, hydronephrosis or any additional abnormality to explain the patient's symptoms. There was note of mild splenomegaly. Chest x- ray on 04/26/18, the day of discharge, showed slightly improved right bibasilar opacities suspicious for pneumonia. HOSPITAL COURSE: Mr. Leon was admitted on 04/24/18 for nausea, vomiting and hypertension with acute on chronic renal failure. He was provided with fluids and started on antibiotics given the findings of continued pneumonia on x -ray. He was treated with Rocephin and azithromycin. Anna Zarco consulted on the phone with Dr. Lamb regarding treatment of his blood pressure and he recommended change of medications with clonidine, Benicar and hydralazine. The patient showed good clinical response to treatment. His potassium normalized. Creatinine was back to near baseline levels. In talking with Dr. Lamb, it was felt the patient could be discharged to followup with him in the outpatient setting. PHYSICAL EXAMINATION: GENERAL: The patient was seen and examined on date of discharge. He was alert and oriented, in no acute distress. VITAL SIGNS: Blood pressure 176/95. Heart rate 92. O2 saturation 99%. Temperature 97.9. CHEST: Lungs clear to auscultation without any rhonchi, wheezing or rales. HEART: Regular rate and rhythm with no appreciable murmurs, gallops, or rubs. ABDOMEN: Obese, but soft, nontender. Positive bowel sounds. EXTREMITIES: No cyanosis, clubbing or edema. NEUROLOGIC: Alert and oriented x3. PLAN: Mr. Leon was discharged on 04/26/18 with instructions to followup with his primary care provider, Leah Buckley, as well as Dr. Lamb to address his blood pressure. He was to resume his home medications as instructed and told to return to the hospital should he have any concerning symptoms. Diet at discharge was diabetic diet. Activity was to increase as tolerated. Medication prescribed at discharge was Omnicef 300 mg twice daily, #10. All other medications prior to hospitalization were continued. DISPOSITION: The patient is discharged to the care of his . Condition on discharge was stable and improved. #[id number] [facility]
== END 2018-04-26 16:25 | disposition home or self-care (01) | DRG 682 ==
LOC: ER 04:23 → MS 11:25
PROVIDERS: ADMIT Nurse Practitioner Acute Care; ATTEND Nurse Practitioner Family
DX: N17.9 Acute kidney failure, unspecified (principal); J18.9 Pneumonia, unspecified organism; I13.0 Hypertensive heart and chronic kidney disease with heart failure and stage 1 through stage 4 chronic kidney disease, or unspecified chronic kidney disease; E86.0 Dehydration; E11.22 Type 2 diabetes mellitus with diabetic chronic kidney disease; N18.9 Chronic kidney disease, unspecified; I50.9 Heart failure, unspecified; E78.5 Hyperlipidemia, unspecified; I25.10 Atherosclerotic heart disease of native coronary artery without angina pectoris; Z89.029 Acquired absence of unspecified finger(s); Z88.1 Allergy status to other antibiotic agents; Z88.5 Allergy status to narcotic agent; Z88.0 Allergy status to penicillin; Z88.7 Allergy status to serum and vaccine; E83.52 Hypercalcemia; E87.5 Hyperkalemia; K52.9 Noninfective gastroenteritis and colitis, unspecified

== ENCOUNTER → 2018-07-27 | Outpatient (CLI) | payer BC | LOC: LAB.O 10:33 | PROVIDERS: ATTEND Nurse Practitioner Family | DX: R39.14 Feeling of incomplete bladder emptying (principal); E78.2 Mixed hyperlipidemia; E11.37X1 Type 2 diabetes mellitus with diabetic macular edema, resolved following treatment, right eye ==

== ENCOUNTER → 2018-08-30 | Outpatient (CLI) | payer BC | LOC: LAB.O 18:38 | PROVIDERS: ATTEND Nurse Practitioner Family | DX: R53.83 Other fatigue (principal); I50.9 Heart failure, unspecified ==

== ENCOUNTER → 2018-09-02 | Outpatient (CLI) | payer BC ==
--- NOTE | 2018-09-02 16:39 | CT ---
EXAM DESCRIPTION: Chest w/o Contrast CLINICAL HISTORY: 48 years, Male, R06.02 chronic kidney failure, right flank/lower chest pain one week COMPARISON: None TECHNIQUE: Thin-section noncontrast axial CT images are obtained according to our protocol. Reconstructed MPR images are created and reviewed as well. FINDINGS: Lungs: Wedgelike atelectasis or patchy infiltrate in the right lower lobe. Hazy groundglass infiltrate in the posterior segment right upper lobe suggesting pneumonia. Patchy areas of consolidation in the right middle lobe and right lower lobe. Abnormal density in the right lower lobe is more consistent with pneumonia than pulmonary infarct. Minimal infiltrate in the left lung base versus subpleural microatelectasis. Linear scar or patchy infiltrate in the inferior lingula. Mediastinum: Few prominent mediastinal lymph nodes are probably reactive. A paratracheal/retrotracheal right node 1 cm short axis dimension is seen with smaller 3 to 5 mm pretracheal nodes. Two subcarinal nodes measure 1 cm and 9 mm short axis dimension. Soft tissue prominence in the right hilar region is thought to be reactive roz prominence plus unopacified vessels. No endobronchial obstructing lesion is identified. Infiltrate in the right lower lobe should be followed to ensure complete clearance. Normal vascular contours. Heart size is normal with small to moderate pericardial effusion. Chest wall/axilla: No mass or adenopathy. Lower neck/supraclavicular: No mass or adenopathy. Upper abdomen: Unremarkable upper abdominal viscera. Coronal and sagittal reformatted images confirm the findings. IMPRESSION: Right lower lobe consolidation most consistent with pneumonia. Follow-up is recommended to ensure complete clearance. Groundglass infiltrates in other areas of the lungs right more than left. Prominent hilar and mediastinal lymph nodes probably reactive. Small to moderate pericardial effusion. This exam was performed according to our departmental dose-optimization program, which includes automated exposure control, adjustment of the mA and/or kV according to patient size and/or use of iterative reconstruction technique. Total DLP equals 989.07 mGycm. Electronically signed by: Michael Henderson MD 09/02/2018 4:35 PM PHYSICAL SCIENCE TEACHER
--- NOTE | 2018-09-02 17:05 | CT ---
EXAM DESCRIPTION: Abdomen w/o Contrast CLINICAL HISTORY: 48 years, Male, R10.9 COMPARISON: Previous ultrasound abdomen April 24, 2018 TECHNIQUE: CT of the abdomen and pelvis is performed according to our non contrast protocol. FINDINGS: The lung bases are abnormal with wedgelike consolidation in the right lower lobe and linear scarring in the lingula. Liver, spleen, and pancreas are unremarkable. Stomach is distended and fluid-filled. Adrenal glands appear normal. The right kidney is unremarkable. The left kidney has an ill-defined lesion laterally which could be a cyst or other renal lesion such as abscess or infarct. This measures 1.3 cm. Mild strandy changes in the perinephric fat appear relatively symmetrical. No renal stones or hydronephrosis. Small bowel loops appear normal in caliber with normal wall thickness. There is no lymphadenopathy, inflammation, or free fluid observed. Ventral fatty density may be periumbilical hernia or lipoma. This is only partly included on this study which does not include the lower abdomen or pelvis. Coronal and sagittal reformatted images confirm the findings. Sagittal images show tiny calculus in the right upper renal calyx 2 mm and vascular calcification in the right renal hilum. Small cyst in the lower right kidney measures 1.3 cm. Left renal lesion is indistinct on the sagittal images. Correlate with sono findings. IMPRESSION: Right renal calculus 2 mm. No obstructive uropathy. Hypodense areas in the kidneys bilaterally probably small cysts. Correlate with sono findings. This exam was performed according to our departmental dose-optimization program, which includes automated exposure control, adjustment of the mA and/or kV according to patient size and/or use of iterative reconstruction technique. Total DLP equals 1072.71 mGycm. Electronically signed by: Michael Henderson MD 09/02/2018 5:02 PM CIRCLE SAW OPERATOR
== END ==
LOC: CT 15:01
PROVIDERS: ATTEND Nurse Practitioner Family
DX: R10.9 Unspecified abdominal pain (principal); R06.02 Shortness of breath; N20.0 Calculus of kidney; I31.3 Pericardial effusion (noninflammatory)

== ENCOUNTER 2018-10-08 14:11 | Inpatient (IN) | payer BC ==
[2018-10-08] MEDS ORDERED: IPRATROPIUM/ALBUTEROL 3 ML VIAL NEB ONE (14:24)
--- NOTE | 2018-10-08 14:57 | RAD ---
EXAM DESCRIPTION: Chest,1 View CLINICAL HISTORY: 48 years Male, ams, cough COMPARISON: Radiographs of the chest dated 04/26/2018. TECHNIQUE: AP radiograph of the chest was obtained. FINDINGS: Trachea is midline.The cardiomediastinal silhouette is mildly enlarged in size. The pulmonary vasculature is within normal limits. Persistent airspace opacities in the bilateral upper lobes.No evidence of pleural effusions. IMPRESSION: Stable mildly enlarged cardiac silhouette and persistent airspace opacities in the bilateral lower lobes. Electronically signed by: Diana Ortiz MD 10/08/2018 2:54 PM CDT
[2018-10-08] MEDS ORDERED: SODIUM CHLORIDE 0.9% 1000ML 500 ML IVS ONE (15:51)
[2018-10-08] MEDS ORDERED: SOD POLYSTYRENE SULFONATE 15 GM/60 ML BTTL PO ONE (15:52)
--- NOTE | 2018-10-08 16:20 | CT ---
EXAM DESCRIPTION: Head CLINICAL HISTORY: delirium COMPARISON: None TECHNIQUE: Noncontrast transaxial CT images of the head are obtained from base to vertex. This exam was performed according to our departmental dose-optimization program, which includes automated exposure control, adjustment of the mA and/or kV according to patient size and/or use of iterative reconstruction technique. FINDINGS: The midline structures are not displaced. The sulci are age appropriate. The lateral, third, and fourth ventricles are normal in size, shape, and anatomic positioning. Mild winnie cisterna magna in the posterior fossa is seen. There is no evidence of mass, mass effect, hydrocephalus, or acute intracranial hemorrhage. No abnormal extra axial fluid collections are seen. Normal coffey-white differentiation is seen. Mild mucosal thickening in the ethmoid air cells and maxillary sinuses is noted. Moderate calcifications of the intracranial carotid arteries are seen. The visualized paranasal sinuses and mastoid air cells are clear. IMPRESSION: 1. No acute abnormality is seen on noncontrast CT of the head. Electronically signed by: Kade Howe MD 10/08/2018 4:17 PM CDT
[2018-10-08] MEDS ORDERED: DEXTROSE 5% 1000ML 1,000 ML IVS ONE (16:54)
[2018-10-08] MEDS ORDERED: SODIUM BICARBONATE SYRINGE 50 MEQ/50 ML SYG IV ONE (16:54)
--- NOTE | 2018-10-08 16:56 | ED.PDOC ---
History of Present Illness - General Chief Complaint: Neuro Symptoms/Deficits Stated Complaint: Confusion, dizziness Time Seen by Provider: 10/08/18 14:13 Source: patient Exam Limitations: no limitations - History of Present Illness Initial Comments: The patient is a 48-year-old male presenting to the emergency room secondary to poor appears to be some mild delirium starting earlier today. No focal neurological deficits. He is not really confused but mentation is slowed. There is a small amount of slurring of speech. Gait is somewhat unsteady. Pupils are fairly small. No syncope or near-syncope. No chest pain. No shortness of breath. No falls. The patient does have insulin-dependent diabetes and does have chronic renal insufficiency. He is a patient of Dr. Monet but is not yet on dialysis. Last creatinine was around 4.8 about a month ago. He has been admitted before for metabolic alkalosis with acute renal failure. He does have chronic lung issues. 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 He does have chronic mild elevation of his muscle enzymes. Severity: mild Improving Factors: nothing Worsening Factors: nothing Associated Symptoms: malaise, weakness - eneralized Allergies/Adverse Reactions: Allergies Penicillins Allergy (Verified 10/08/18 14:28) Rash Erythromycin Adverse Reaction (Verified 10/08/18 14:28) Nausea Hydrocodone Adverse Reaction (Verified 10/08/18 14:28) Other Makes patient "fidgety" Influenza A (H1N1) Monovalent Vacci Adverse Reaction (Verified 10/08/18 14:28) Home Medications: Ambulatory Orders Albuterol Sulfate [Proair Hfa] 2 puff INH Q6H PRN #1 02/03/15 Insulin Glargine [Toujeo Solostar] 56 unit SC BID 09/25/15 Insulin Lispro [Humalog] 0 unit SC PRN PRN 09/25/15 Clonidine HCl 0.3 mg PO Q8H 03/28/16 Rosuvastatin Calcium [Crestor] 40 mg PO .QEVENING 01/10/17 hydrALAZINE HCl [HydrALAzine HCl] 100 mg PO Q8H 01/10/17 Metoprolol Tartrate 50 mg PO BID #60 tab 01/25/17 Clonazepam 0.5 mg PO BID PRN 03/02/17 Clopidogrel Bisulfate 75 mg PO DAILY 03/02/17 Budesonide-Formoterol Fumarate [Symbicort 160-4.5 Mcg/Act] 2 puff INH BID 04/24/18 Bumetanide [Bumex] 2 mg PO DAILY 04/24/18 Diltiazem HCl Coated Beads [Cartia Xt] 240 mg PO DAILY 04/24/18 Dulaglutide [Trulicity] 1.5 ml SC WKLY 04/24/18 Fe Fum-Iron Polysacch Complex- [Fusion Plus] 1 cap PO DAILY 04/24/18 Furosemide Tab [Lasix Tab] 20 mg PO QAM 04/24/18 Montelukast [Singulair] 10 mg PO DAILY 04/24/18 Olmesartan Medoxomil [Benicar] 40 mg PO DAILY 04/24/18 Venlafaxine Xr [Effexor Xr] 75 mg PO DAILY 04/24/18 Cefdinir [Omnicef] 300 mg PO BID #10 cap 04/26/18 Review of Systems - Review of Systems Constitutional: States: malaise, weakness - generalized EENTM: States: no symptoms reported Respiratory: States: no symptoms reported Cardiology: States: no symptoms reported Gastrointestinal/Abdominal: States: no symptoms reported Genitourinary: States: no symptoms reported Musculoskeletal: States: no symptoms reported Skin: States: no symptoms reported Neurological: States: see HPI - slowed mentation and mild gait unsteadiness Endocrine: States: no symptoms reported All other Systems: No Change from Baseline Past Medical History (General) - Patient Medical History Hx Seizures: No Hx Stroke: No Hx Dementia: No Hx Asthma: Yes Hx of COPD: No Hx Cardiac Disorders: Yes - Stent placement Hx Congestive Heart Failure: No Hx Pacemaker: No Hx Hypertension: Yes Hx Thyroid Disease: No Hx Diabetes: Yes Hx Gastroesophageal Reflux: No Hx Renal Disease: Yes - chronic renal failure Hx Cancer: No Hx of HIV: No Hx Hepatitis C: No Hx MRSA: No - Vaccination History Hx Tetanus, Diphtheria Vaccination: No Hx Influenza Vaccination: No - Allergy Hx Pneumococcal Vaccination: No - Social History Hx Tobacco Use: Yes - Quit around 1989 Hx Chewing Tobacco Use: No Hx Alcohol Use: No Hx Substance Use: No Hx Substance Use Treatment: No Hx Depression: No Hx Physical Abuse: No Hx Emotional Abuse: No Hx Suspected Abuse: No - Female History Patient : No Family Medical History - Family History Mother Living Status: Still Living Hx Family Hypertension: Yes - several family members Hx Cardiac Disease: Yes - dad -mi Hx Family Diabetes: Yes - several family members Father Family History: No Known Living Status: Hx Family Hypertension: Yes Hx Cardiac Disease: Yes Hx Family Diabetes: Yes Physical Exam - Physical Exam General Appearance: Other - drowsy but easily arousable. Oriented 4. He simply appears tired. 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 Mildly drowsy. Skin Exam: normal color Comments: Vital Signs - 24 hr 10/08/18 10/08/18 10/08/18 14:11 14:55 15:30 Temperature 97.6 F Pulse Rate 90 90 Pulse Rate [ 95 H 89 Left Radial] Respiratory 18 18 18 Rate Blood Pressure 155/84 144/88 [Left Arm] O2 Sat by Pulse 97 99 98 Oximetry Progress - Progress Progress: 10/08/18 16:59 the patient is a 48-year-old male presenting with mild delirium likely due to metabolic encephalopathy, more specifically uremia. He also has associated mild hyponatremia and mild hyperkalemia. he does have mild hyperglycemia. I discussed the patient with Dr. Lamb who recommends D5 with 1- 1/2 A of sodium bicarbonate at around 100 cc an hour overnight. If patient is failing to improve when he has acidosis and mentation by tomorrow then he may need to be transferred for more aggressive intervention. The patient has had at least 2 episodes like this in the past. They have responded to this treatment previously. Admit for continued care and monitoring. The patient did receive 1 dose of Kayexalate for the hyperkalemia as well. - Results/Orders Results/Orders: CT of the head shows no acute pathology. Chest x-ray shows chronic findings only. Laboratory Tests 10/08/18 10/08/18 10/08/18 14:23 14:23 14:23 WBC 5.0 RBC 3.95 L Hgb 10.5 L Hct 33.5 L MCV 84.7 MCH 26.5 L MCHC 31.3 L RDW 15.4 H Plt Count 149 MPV 10.0 Absolute Neuts (auto) 3.00 Absolute Lymphs (auto) 1.30 Absolute Monos (auto) 0.60 Absolute Eos (auto) 0.10 Absolute Basos (auto) 0.00 Neutrophils % 59.5 Lymphocytes % 26.5 Monocytes % 11.4 H Eosinophils % 2.2 Basophils % 0.4 pCO2 pO2 HCO3 ABG pH ABG O2 Saturation ABG Base Excess ABG Deoxyhemoglobin Oxyhemoglobin % Carboxyhemoglobin % Methemoglobin % Sat Calc Total Hemoglobin Sodium 132 L Potassium 5.5 H Chloride 107 Carbon Dioxide 16 L Anion Gap 14.5 BUN 86 H Creatinine 4.94 H BUN/Creatinine Ratio 17.4 Random Glucose 261 H Serum Osmolality 299.7 H Lactic Acid 0.7 Calcium 8.2 L Magnesium 1.8 Total Bilirubin < 0.2 L AST 16 ALT 24 Alkaline Phosphatase 41 L Creatine Kinase 313 H* CK-MB (CK-2) 13.1 H* CK-MB (CK-2) % 4.19 H Troponin I < 0.02 B-Natriuretic Peptide 101.0 H Serum Total Protein 6.1 L Albumin 3.2 Globulin 2.9 Albumin/Globulin Ratio 1.1 Urine Color Urine Appearance Urine pH Ur Specific Spencer Urine Protein Urine Glucose (UA) Urine Ketones Urine Blood Urine Nitrite Urine Bilirubin Urine Urobilinogen Ur Leukocyte Esterase Urine RBC Urine WBC Ur Epithelial Cells Urine Bacteria 10/08/18 10/08/18 14:44 16:02 WBC RBC Hgb Hct MCV MCH MCHC RDW Plt Count MPV Absolute Neuts (auto) Absolute Lymphs (auto) Absolute Monos (auto) Absolute Eos (auto) Absolute Basos (auto) Neutrophils % Lymphocytes % Monocytes % Eosinophils % Basophils % pCO2 32 L pO2 88 HCO3 14.3 ABG pH 7.270 L* ABG O2 Saturation 97.3 ABG Base Excess -11.3 ABG Deoxyhemoglobin 2.6 Oxyhemoglobin % 95.1 Carboxyhemoglobin % 0.0 L Methemoglobin % Sat 2.2 H Calc Total Hemoglobin 9.9 L Sodium Potassium Chloride Carbon Dioxide Anion Gap BUN Creatinine BUN/Creatinine Ratio Random Glucose Serum Osmolality Lactic Acid Calcium Magnesium Total Bilirubin AST ALT Alkaline Phosphatase Creatine Kinase CK-MB (CK-2) CK-MB (CK-2) % Troponin I B-Natriuretic Peptide Serum Total Protein Albumin Globulin Albumin/Globulin Ratio Urine Color Yellow Urine Appearance Clear Urine pH 5.0 Ur Specific Spencer 1.020 Urine Protein >=300 H Urine Glucose (UA) 250 H Urine Ketones Negative Urine Blood Negative Urine Nitrite Negative Urine Bilirubin Negative Urine Urobilinogen 0.2 Ur Leukocyte Esterase Negative Urine RBC 0 Urine WBC 0-1 Ur Epithelial Cells 0 Urine Bacteria 0 EKG shows normal sinus rhythm. 92 bpm. Slow R-wave progression. Normal axis. No definitive ST segment or T-wave changes indicative of acute ischemia. Departure - Departure Clinical Impression: Uremia, acute, Metabolic encephalopathy, Metabolic acidosis, Hyperkalemia, Hyponatremia, Mild dehydration, Hyperglycemia due to type 1 diabetes mellitus Disposition: Admit Patient Departure Forms: ED Discharge - Pt. Copy, Patient Portal Self Enrollment Referrals: Leah Buckley NP [Primary Care Provider] - 1-2 Weeks Home Medications: Ambulatory Orders Albuterol Sulfate [Proair Hfa] 2 puff INH Q6H PRN #1 02/03/15 Insulin Glargine [Toujeo Solostar] 56 unit SC BID 09/25/15 Insulin Lispro [Humalog] 0 unit SC PRN PRN 09/25/15 Clonidine HCl 0.3 mg PO Q8H 03/28/16 Rosuvastatin Calcium [Crestor] 40 mg PO .QEVENING 01/10/17 hydrALAZINE HCl [HydrALAzine HCl] 100 mg PO Q8H 01/10/17 Metoprolol Tartrate 50 mg PO BID #60 tab 01/25/17 Clonazepam 0.5 mg PO BID PRN 03/02/17 Clopidogrel Bisulfate 75 mg PO DAILY 03/02/17 Budesonide-Formoterol Fumarate [Symbicort 160-4.5 Mcg/Act] 2 puff INH BID 04/24/18 Bumetanide [Bumex] 2 mg PO DAILY 04/24/18 Diltiazem HCl Coated Beads [Cartia Xt] 240 mg PO DAILY 04/24/18 Dulaglutide [Trulicity] 1.5 ml SC WKLY 04/24/18 Fe Fum-Iron Polysacch Complex- [Fusion Plus] 1 cap PO DAILY 04/24/18 Furosemide Tab [Lasix Tab] 20 mg PO QAM 04/24/18 Montelukast [Singulair] 10 mg PO DAILY 04/24/18 Olmesartan Medoxomil [Benicar] 40 mg PO DAILY 04/24/18 Venlafaxine Xr [Effexor Xr] 75 mg PO DAILY 04/24/18 Cefdinir [Omnicef] 300 mg PO BID #10 cap 04/26/18 Decision To Admit - Decistion To Admit Decision to Admit Reason: Medical Nature Decision to Admit Date: 10/08/18 Decision to Admit Time: 17:03
[2018-10-08] MEDS: SODIUM BICARBONATE SYRINGE 75 MEQ in DEXTROSE 5% 1000ML 1,000 ML IV PRN (17:22)
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
[2018-10-08] MEDS ORDERED: SODIUM CHLORIDE 0.9% (FLUSH) 10 ML SYG IV PRN (18:40)
[2018-10-08] MEDS ORDERED: SODIUM BICARBONATE SYRINGE 75 MEQ in DEXTROSE 5% 1000ML 1,000 ML IV PRN (18:42)
[2018-10-08] MEDS ORDERED: IV SET AND CAP CHANGE INJ INJ SCH (19:00)
[2018-10-08] MEDS ORDERED: GLUCAGON INJ 1 MG VIAL SUBCU PRN (19:07)
[2018-10-08] MEDS ORDERED: DEXTROSE 50% 25 GM/50 ML SYG IV PRN (19:07)
[2018-10-08] MEDS: IPRATROPIUM/ALBUTEROL 3 ML VIAL NEB SCH (20:34)
[2018-10-08] MEDS: INSULIN LISPRO 100 UNITS/ML PEN SUBCU SCH (21:05)
[2018-10-08] MEDS ORDERED: ALBUTEROL INH (ER DISPENSE) 1 EA INH INH PRN (22:14)
[2018-10-08] MEDS ORDERED: ALBUTEROL INHALER 64 PUFF/8GM INH PRN (22:17)
[2018-10-08] MEDS ORDERED: MONTELUKAST 10 MG TAB ONE (22:35)
[2018-10-08] MEDS ORDERED: GABAPENTIN 300 MG CAP ONE (22:35)
[2018-10-08] MEDS: BUDESONIDE/FORMOTEROL 160/4.5 60 PUFF/6 GM INH INH SCH (22:37)
[2018-10-08] MEDS: VENLAFAXINE XR 75 MG CAP PO SCH (22:44)
[2018-10-08] MEDS: METOPROLOL TARTRATE 50 MG TAB PO SCH (22:44)
[2018-10-08] MEDS: cloNIDine HCL 0.1 MG TAB PO SCH (22:45)
[2018-10-08] MEDS: MONTELUKAST 10 MG TAB PO SCH (22:46)
[2018-10-08] MEDS: GABAPENTIN 300 MG CAP PO SCH (22:46)
[2018-10-08] MEDS: NON-FORMULARY MEDICATION 1 EA MIS SUBCU SCH (22:47)
[2018-10-09] MEDS: IPRATROPIUM/ALBUTEROL 3 ML VIAL NEB SCH ×6 (00:04→20:07)
[2018-10-09] MEDS ORDERED: SODIUM BICARBONATE VIAL 50 MEQ/50 ML VIAL ONE (02:58)
[2018-10-09] MEDS ORDERED: DEXTROSE 5% 1000ML 1,000 ML IVS ONE ×2 (02:59→15:29)
[2018-10-09] MEDS: SODIUM BICARBONATE SYRINGE 75 MEQ in DEXTROSE 5% 1000ML 1,000 ML IV PRN ×2 (03:01→15:41)
[2018-10-09] MEDS: cloNIDine HCL 0.1 MG TAB PO SCH ×3 (06:22→22:32)
[2018-10-09] MEDS: INSULIN LISPRO 100 UNITS/ML PEN SUBCU SCH ×4 (08:21→21:01)
[2018-10-09] MEDS ORDERED: METOPROLOL TARTRATE 50 MG TAB ONE (08:22)
[2018-10-09] MEDS ORDERED: VENLAFAXINE XR 75 MG CAP ONE (08:22)
[2018-10-09] MEDS: VENLAFAXINE XR 75 MG CAP PO SCH (08:38)
[2018-10-09] MEDS: METOPROLOL TARTRATE 50 MG TAB PO SCH ×2 (08:38→17:00)
[2018-10-09] MEDS: NON-FORMULARY MEDICATION 1 EA MIS SUBCU SCH ×2 (08:40→20:59)
[2018-10-09] MEDS: BENICAR 40 MG PO SCH (08:42)
[2018-10-09] MEDS: [UNRECOGNIZED DRUG - OTHER] PO SCH (08:42)
[2018-10-09] MEDS: CLOPIDOGREL 75 MG TAB PO SCH (08:45)
[2018-10-09] MEDS: ENOXAPARIN SODIUM 30 MG/0.3 ML SYG SUBCU SCH (08:45)
[2018-10-09] MEDS ORDERED: ATORVASTATIN 20 MG TAB PO SCH (11:30)
[2018-10-09] MEDS: BUDESONIDE/FORMOTEROL 160/4.5 60 PUFF/6 GM INH INH SCH ×2 (11:57→20:10)
[2018-10-09] MEDS ORDERED: SODIUM BICARBONATE SYRINGE 50 MEQ/50 ML SYG IV ONE (15:29)
[2018-10-09] MEDS ORDERED: MONTELUKAST 10 MG TAB ONE (15:30)
[2018-10-09] MEDS ORDERED: GABAPENTIN 300 MG CAP ONE (15:30)
--- NOTE | 2018-10-09 20:48 | PN ---
DATE: 10/09/18 SUPERVISING PHYSICIAN: Tashi Khan M.D. SUBJECTIVE: The patient today feels a little bit better. He is not as confused. He does not have any symptoms similar to yesterday. He is responding well to treatment with sodium bicarb. I discussed with him that an additional 24 hours and he should be at a point where he could go home as his labs are responding to treatment. OBJECTIVE: VITAL SIGNS: Temperature 97.8, pulse 98, blood pressure 176/84, respirations 18, satting 96% on room air. Weight 137.1 kg. I's and O's show a negative balance of 1400. GENERAL: The patient is taking a breathing treatment nebulizer. He appears to be in no acute distress. He is alert. CHEST: Clear to auscultation, just slightly diminished towards the bases. HEART: Regular rate and rhythm. ABDOMEN: Soft, non-tender. Positive bowel sounds. EXTREMITIES: Without any edema. NEUROLOGIC: He is alert and oriented times three with no neurological deficits noted. LABORATORY: White count 5,000, hemoglobin is stable at 10.6, hematocrit 34.1, platelet count 138,000. Differential shows to be without a left shift. Chemistries show normal electrolytes, potassium 4.7, anion gap is normal at 14, carbon dioxide was slightly low at 17, BUN is down to 79, creatinine is down to 462. Blood sugars range between 132 and 173, calcium 8.0. ASSESSMENT: 1. Acute on chronic kidney disease showing improvement with sodium bicarbonate infusion. 2. Metabolic acidosis secondary to #1, improving with treatment. 3. Hyperkalemia secondary to #1, resolved. 4. Altered mental status secondary to #1 with metabolic encephalopathy now resolved after initiation of fluids. 5. Diabetes mellitus type 2. 6. Mild anemia. 7. Obstructive sleep apnea. PLAN: I did talk with Dr. Lamb. He feels like he is doing good. Will continue with IV fluids today with the sodium bicarbonate. Plan to discharge tomorrow after we repeat labs as long as nothing is changing. He has been utilizing his BiPAP at night and again his mental status seems to be back to baseline levels. Until we can transition him back to outpatient management will continue to monitor and treat as needed. #[id number] [facility]
[2018-10-09] MEDS: GABAPENTIN 300 MG CAP PO SCH (20:57)
[2018-10-09] MEDS: MONTELUKAST 10 MG TAB PO SCH (20:58)
[2018-10-09] MEDS ORDERED: ROSUVASTATIN 40 MG PO SCH (21:00)
[2018-10-10] MEDS: IPRATROPIUM/ALBUTEROL 3 ML VIAL NEB SCH ×3 (00:07→08:02)
[2018-10-10] MEDS ORDERED: SODIUM BICARBONATE VIAL 50 MEQ/50 ML VIAL ONE (00:56)
[2018-10-10] MEDS ORDERED: DEXTROSE 5% 1000ML 1,000 ML IVS ONE (00:56)
[2018-10-10] MEDS: SODIUM BICARBONATE SYRINGE 75 MEQ in DEXTROSE 5% 1000ML 1,000 ML IV PRN (01:02)
[2018-10-10] MEDS: cloNIDine HCL 0.1 MG TAB PO SCH (05:54)
[2018-10-10] MEDS: INSULIN LISPRO 100 UNITS/ML PEN SUBCU SCH (07:46)
[2018-10-10] MEDS: METOPROLOL TARTRATE 50 MG TAB PO SCH (07:48)
[2018-10-10] MEDS: VENLAFAXINE XR 75 MG CAP PO SCH (07:48)
[2018-10-10] MEDS: BUDESONIDE/FORMOTEROL 160/4.5 60 PUFF/6 GM INH INH SCH (08:54)
[2018-10-10] MEDS: [UNRECOGNIZED DRUG - OTHER] PO SCH (09:35)
[2018-10-10] MEDS: BENICAR 40 MG PO SCH (09:36)
[2018-10-10] MEDS: ENOXAPARIN SODIUM 30 MG/0.3 ML SYG SUBCU SCH (09:38)
[2018-10-10] MEDS: CLOPIDOGREL 75 MG TAB PO SCH (09:39)
[2018-10-10] MEDS: NON-FORMULARY MEDICATION 1 EA MIS SUBCU SCH (09:40)
[2018-10-10 09:55] VITALS: BP 167/99; TEMP 97.5; O2SAT 97
[2018-10-13] MEDS ORDERED: DULAGLUTIDE SC SCH ×2 (09:00→19:00)
--- NOTE | 2018-10-21 11:13 | DS ---
SUPERVISING PHYSICIAN: Tashi Khan MD ADMISSION DIAGNOSIS: 1. Acute on chronic kidney disease. 2. Metabolic acidosis secondary to #1. 3. Hyperkalemia secondary to #1. 4. Altered mental status secondary to acidosis/metabolic encephalopathy. 5. Diabetes mellitus, type 2. 6. Mild anemia. 7. Obstructive sleep apnea. DISCHARGE DIAGNOSIS: 1. Acute on chronic kidney disease showing improvement after sodium bicarbonate infusion. 2. Metabolic acidosis secondary to #1, resolved with treatment. 3. Hyperkalemia secondary to #1, resolved and stable. 4. Altered mental status secondary to metabolic encephalopathy, resolved after fluids. 5. Diabetes mellitus, type 2, stable. 6. Mild anemia, stable. 7. Obstructive sleep apnea. REASON FOR HOSPITALIZATION: This is a 48 year-old male patient with a history of end stage renal disease who came to the Emergency Room with altered mental status. He was seen in the Emergency Room by Dr. Alvarez and apparently earlier today he was feeling like he was drunk, but he had not had any alcoholic beverages. He had some slurred speech. There were no focal deficits, however, but he came to the Emergency Room and was found to have acute on chronic renal failure and some metabolic acidosis. He did get a CT scan of the brain which did not show any acute findings. A chest x-ray also showed some cardiomegaly and bibasilar atelectasis, but no pneumonic process. White count is normal. Hemoglobin 10.5. Arterial blood gas with a pH of 7.270, CO2 is 32, pO2 is 88, bicarb 14.3, base excess of -11.3. Urinalysis was not consistent with urinary tract infection, but just had proteinuria and glucose as well. He did have a high potassium of 5.5 and was given Kayexalate in the Emergency Room. Given his findings, Dr. Lamb, his manager route, was called and his recommendation was for admission and treatment with IV fluids to the tune of D5 with sodium bicarb. His recommendation was to repeat labs in the morning and if he does not seem to be improving, he can be transferred to [facility]. LABORATORY: White count on admission was 5,000 and on discharge was 5,800. Hemoglobin and hematocrit were stable at 10.6 and 34.1 on discharge with platelet count 138,000. Differential was without a left shift. Blood gas analysis showed initial pH 7.27, pCO2 32, pO2 88, bicarb 14, saturation 97% on room air. Chemistries initially on admission showed sodium 132, potassium 5.5, carbon dioxide 16, anion gap normal at 14, BUN 86, creatinine 4.94, glucose 261, lactic acid 0.7, calcium 8.1, magnesium 1.8. Liver functions all within normal limits. CPK elevated at 313, troponin less than 0.02. After initiation of treatment and prior to discharge, electrolytes had normalized. Carbon dioxide was improving and was up to 19. BUN was down to 68, creatinine down to 3.96 near baseline levels. Blood sugars remained between 86 and 173. Urinalysis showed greater than 300 of protein, 250 of glucose, otherwise within normal limits. MICROBIOLOGY: There were no microbiology specimens submitted. RADIOLOGY: He had a chest x-ray prior to admission in the Emergency Room and per radiologic interpretation of single-view chest showed stable mildly enlarged cardiac silhouette, persistent airspace opacities in bilateral lower lobes. He had a CT of the head without contrast and per radiologic interpretation showed no acute abnormalities seen on non-contrast CT of the head. EKG in the Emergency Room prior to admission per interpretation showed normal sinus rhythm with no acute injury patterns noted. HOSPITAL COURSE: Mr. Leon was admitted as noted above for acute mental status changes with some metabolic encephalopathy secondary to metabolic acidosis secondary to acute renal failure. He was started on fluids with a sodium bicarbonate infusion. He showed good clinical response to treatment with near baseline levels of creatinine and BUN prior to discharge. His mentation had improved back to baseline levels. He was clinically stable enough to be discharged to continue with outpatient management. PLAN: Mr. Leon was discharged on 10/10/18 with instructions to followup with Dr. Lamb. He was to resume his home medications as directed and told to return to the hospital should he have any worsening or concerning symptoms. No new medications were provided at discharge. Diet at discharge was regular diet as tolerated. Activity to increase as tolerated. CONDITION AT DISCHARGE: Stable and improving. DISPOSITION: The patient is discharged to care of family members. #[id number] [facility]
== END 2018-10-10 11:15 | disposition home or self-care (01) | DRG 682 ==
LOC: ER 14:11 → MS 17:39
PROVIDERS: ADMIT Nurse Practitioner; ATTEND Nurse Practitioner Family
DX: N17.9 Acute kidney failure, unspecified (principal); G93.41 Metabolic encephalopathy; E87.2 Acidosis; I13.0 Hypertensive heart and chronic kidney disease with heart failure and stage 1 through stage 4 chronic kidney disease, or unspecified chronic kidney disease; E87.1 Hypo-osmolality and hyponatremia; Z68.41 Body mass index [BMI] 40.0-44.9, adult; N18.6 End stage renal disease; E87.5 Hyperkalemia; E86.0 Dehydration; E11.65 Type 2 diabetes mellitus with hyperglycemia; E11.22 Type 2 diabetes mellitus with diabetic chronic kidney disease; D64.9 Anemia, unspecified; G47.33 Obstructive sleep apnea (adult) (pediatric); E78.5 Hyperlipidemia, unspecified; I25.10 Atherosclerotic heart disease of native coronary artery without angina pectoris; I50.9 Heart failure, unspecified; J45.909 Unspecified asthma, uncomplicated; E66.9 Obesity, unspecified; Z88.1 Allergy status to other antibiotic agents; Z88.0 Allergy status to penicillin; Z88.7 Allergy status to serum and vaccine; Z88.5 Allergy status to narcotic agent; Z87.891 Personal history of nicotine dependence; Z79.4 Long term (current) use of insulin; Z79.02 Long term (current) use of antithrombotics/antiplatelets; Z79.899 Other long term (current) drug therapy

== ENCOUNTER 2018-10-20 20:14 | Emergency (ER) | payer BC ==
[2018-10-20 20:32] VITALS: TEMP 98
--- NOTE | 2018-10-20 21:23 | ED.PDOC ---
History of Present Illness - General Chief Complaint: Respiratory Problem Stated Complaint: shortness of breath Time Seen by Provider: 10/20/18 21:22 - History of Present Illness Initial Comments: Josafat Kim 48 y/o male came to ER with on and off SOB and coughing for the last 3 days;Denies chest pains,nausea/vomiting fever chills.has history of DM2 and renal insufficiency Timing/Duration: days - 3 Severity: moderate Activities at Onset: none Possible Cause: occasional episodes Improving Factors: nothing Worsening Factors: nothing Associated Symptoms: cough Respiratory Risk Factors: no cause identified Allergies/Adverse Reactions: Allergies Penicillins Allergy (Verified 10/08/18 17:58) Rash Erythromycin Adverse Reaction (Verified 10/08/18 17:58) Nausea Hydrocodone Adverse Reaction (Verified 10/08/18 17:58) Other Makes patient "fidgety" Influenza A (H1N1) Monovalent Vacci Adverse Reaction (Verified 10/08/18 17:58) Home Medications: Ambulatory Orders Albuterol Sulfate [Proair Hfa] 2 puff INH Q6H PRN #1 02/03/15 Insulin Glargine [Toujeo Solostar] 58 unit SC BID 09/25/15 Insulin Lispro [Humalog] 0 unit SC PRN PRN 09/25/15 Clonidine HCl 0.3 mg PO Q8H 03/28/16 Rosuvastatin Calcium [Crestor] 40 mg PO .QEVENING 01/10/17 hydrALAZINE HCl [HydrALAzine HCl] 100 mg PO Q8H 01/10/17 Metoprolol Tartrate 50 mg PO BID #60 tab 01/25/17 Clopidogrel Bisulfate 75 mg PO DAILY 03/02/17 Budesonide-Formoterol Fumarate [Symbicort 160-4.5 Mcg/Act] 2 puff INH BID 04/24/18 Diltiazem HCl Coated Beads [Cartia Xt] 240 mg PO DAILY 04/24/18 Dulaglutide [Trulicity] 1.5 ml SC WKLY 04/24/18 Fe Fum-Iron Polysacch Complex- [Fusion Plus] 1 cap PO DAILY 04/24/18 Furosemide Tab [Lasix Tab] 20 mg PO QAM 04/24/18 Montelukast [Singulair] 10 mg PO DAILY 04/24/18 Olmesartan Medoxomil [Benicar] 40 mg PO DAILY 04/24/18 Venlafaxine Xr [Effexor Xr] 75 mg PO DAILY 04/24/18 Gabapentin [Neurontin] 1 tablet PO BEDTIME 10/08/18 levoFLOXacin [Levaquin] 500 mg PO DAILY 7 Days #7 tab 10/21/18 Review of Systems - Review of Systems EENTM: States: no symptoms reported Respiratory: States: see HPI Cardiology: States: no symptoms reported Gastrointestinal/Abdominal: States: no symptoms reported Genitourinary: States: other - ckd followed up by Dr. Lamb equity director All other Systems: Reviewed and Negative, No Change from Baseline Past Medical History (General) - Patient Medical History Hx Seizures: No Hx Stroke: No Hx Dementia: No Hx Asthma: Yes Hx of COPD: Yes Hx Cardiac Disorders: Yes - Stent placement Hx Congestive Heart Failure: Yes Hx Pacemaker: No Hx Hypertension: Yes Hx Thyroid Disease: No Hx Diabetes: Yes Hx Gastroesophageal Reflux: No Hx Renal Disease: Yes Hx Cancer: No Hx of HIV: No Hx Hepatitis C: No Hx MRSA: No Surgical History: other - cardiac stent;sleep apnea - Vaccination History Hx Tetanus, Diphtheria Vaccination: No Hx Influenza Vaccination: No Hx Pneumococcal Vaccination: No Immunizations Up to Date: Yes - Social History Hx Tobacco Use: Yes - Quit around 1989 Hx Chewing Tobacco Use: No Hx Alcohol Use: No Hx Substance Use: No Hx Substance Use Treatment: No Hx Depression: No Hx Physical Abuse: No Hx Emotional Abuse: No Hx Suspected Abuse: No - Activities of Daily Living Patient Lives Alone: No Grooming Ability: Independent Eating (Feeding) Ability: Independent Toileting Ability: Independent - Female History Patient : No Family Medical History - Family History Mother Living Status: Still Living Hx Family Hypertension: Yes - several family members Hx Cardiac Disease: Yes - dad -mi Hx Family Diabetes: Yes - several family members Father Family History: No Known Living Status: Hx Family Hypertension: Yes Hx Cardiac Disease: Yes Hx Family Diabetes: Yes Physical Exam - Physical Exam General Appearance: Alert, Comfortable, No apparent distress Eyes, Ears, Nose, Throat Exam: normal ENT inspection Neck: supple, normal inspection Respiratory: chest non-tender, no respiratory distress, rhonchi Cardiovascular/Chest: normal peripheral pulses, regular rate, rhythm, no murmur Peripheral Pulses: radial,right: 2+, radial,left: 2+ Gastrointestinal/Abdominal: non tender, soft, no organomegaly Extremity: pedal edema - 2 + Neurologic: alert, oriented x 3 Skin Exam: normal color, warm/dry Progress - Progress Progress: 10/20/18 23:50 Vital Signs - 8 hr 10/20/18 10/20/18 10/20/18 20:25 20:32 21:21 Temperature 98.0 F Pulse Rate Pulse Rate [ 98 H 90 Apical] Respiratory 20 20 20 Rate Blood Pressure 214/117 183/89 [Right Arm] O2 Sat by Pulse 95 95 Oximetry 10/20/18 10/20/18 10/20/18 22:06 22:38 23:00 Temperature Pulse Rate 94 H Pulse Rate [ 94 H 93 H Apical] Respiratory 12 Rate Blood Pressure 162/89 172/85 [Right Arm] O2 Sat by Pulse 96 93 L 93 L Oximetry 10/21/18 00:27 Discuss test result with patient as well as Chest X-ray findings with patchy lower lobe opacity and explained that I need to try outpatient management with oral antibiotics Levaquin ;No further oxygen desaturation noted on patient for about 30 minutes Sao2 -94 %;while talking - Results/Orders Results/Orders: 10/20/18 20:35 EKG Assessment ONCE 10/20/18 20:45 EKG STAT 10/20/18 21:48 SVN/Updraft Therapy .ONCE 10/21/18 09:00 Updrafts Daily Laboratory Results - last 24 hr 10/20/18 20:39 WBC 6.9 RBC 4.06 L Hgb 10.6 L Hct 33.9 L MCV 83.6 MCH 26.1 L MCHC 31.2 L RDW 15.7 H Plt Count 136 MPV 10.0 Absolute Neuts (auto) 5.30 Absolute Lymphs (auto) 0.80 L Absolute Monos (auto) 0.60 Absolute Eos (auto) 0.10 Absolute Basos (auto) 0.00 Neutrophils % 77.2 Lymphocytes % 11.9 L Monocytes % 8.7 Eosinophils % 1.7 Basophils % 0.5 PT < 8.9 L INR Public Health Administrator PTT (SP) 23.6 Sodium 137 Potassium 5.5 H Chloride 110 Carbon Dioxide 17 L Anion Gap 15.5 BUN 65 H Creatinine 4.19 H BUN/Creatinine Ratio 15.5 Random Glucose 417 H* Serum Osmolality 310.4 H Calcium 7.9 L Magnesium 1.8 Creatine Kinase 287 H* CK-MB (CK-2) 9.0 H* CK-MB (CK-2) % 3.14 Troponin I < 0.02 B-Natriuretic Peptide 520.0 H* - EKG/XRAY/CT EKG: Sinus, no ST T wave changes Comments: HR-95 XRAY: chest - patchy opacities lower lobe right Departure - Departure Clinical Impression: Diabetes 1.5, managed as type 1, CKD stage 4 due to type 2 diabetes mellitus Dyspnea, unspecified Qualifiers: Dyspnea type: other forms of dyspnea Qualified Code(s): R06.09 - Other forms of dyspnea Pneumonia Qualifiers: Pneumonia type: due to unspecified organism Laterality: right Lung location: lower lobe of lung Qualified Code(s): J18.1 - Lobar pneumonia, unspecified organism Time of Disposition: 00:31 Disposition: Discharge to Home or Self Care Condition: Fair Departure Forms: ED Discharge - Pt. Copy, Patient Portal Self Enrollment Referrals: Leah Buckley NP [Primary Care Provider] - 1-2 Weeks Prescriptions: levoFLOXacin [Levaquin] 500 mg PO DAILY 7 Days #7 tab Home Medications: Ambulatory Orders Albuterol Sulfate [Proair Hfa] 2 puff INH Q6H PRN #1 02/03/15 Insulin Glargine [Toujeo Solostar] 58 unit SC BID 09/25/15 Insulin Lispro [Humalog] 0 unit SC PRN PRN 09/25/15 Clonidine HCl 0.3 mg PO Q8H 03/28/16 Rosuvastatin Calcium [Crestor] 40 mg PO .QEVENING 01/10/17 hydrALAZINE HCl [HydrALAzine HCl] 100 mg PO Q8H 01/10/17 Metoprolol Tartrate 50 mg PO BID #60 tab 01/25/17 Clopidogrel Bisulfate 75 mg PO DAILY 03/02/17 Budesonide-Formoterol Fumarate [Symbicort 160-4.5 Mcg/Act] 2 puff INH BID 04/24/18 Diltiazem HCl Coated Beads [Cartia Xt] 240 mg PO DAILY 04/24/18 Dulaglutide [Trulicity] 1.5 ml SC WKLY 04/24/18 Fe Fum-Iron Polysacch Complex- [Fusion Plus] 1 cap PO DAILY 04/24/18 Furosemide Tab [Lasix Tab] 20 mg PO QAM 04/24/18 Montelukast [Singulair] 10 mg PO DAILY 04/24/18 Olmesartan Medoxomil [Benicar] 40 mg PO DAILY 04/24/18 Venlafaxine Xr [Effexor Xr] 75 mg PO DAILY 04/24/18 Gabapentin [Neurontin] 1 tablet PO BEDTIME 10/08/18 levoFLOXacin [Levaquin] 500 mg PO DAILY 7 Days #7 tab 10/21/18 Additional Instructions: Follow up with primary Md 21 October 2018 for recheck and request Endocrinology consult;Return to ER as needed;Continue with all home medications
[2018-10-20] MEDS ORDERED: NITROGLYCERIN 0.4 MG 25 EA TAB SL ONE (21:24)
[2018-10-20] MEDS ORDERED: LEVALBUTEROL NEBS 1.25 MG/3 ML VIAL NEB ONE (21:47)
--- NOTE | 2018-10-20 22:10 | RAD ---
EXAM: XR Chest, 1 View CLINICAL HISTORY: The patient is 48 years old and is Male; sob TECHNIQUE: Frontal view of the chest. COMPARISON: Chest radiograph October 08, 2018. FINDINGS: LIMITATIONS: Suboptimal study secondary to artifact related to patient body habitus. LUNGS: Patchy opacity within the right lower lobe is present. The lungs are otherwise clear. PLEURAL SPACE: Unremarkable. No pneumothorax. HEART: The cardiac silhouette is stable. MEDIASTINUM: Unremarkable. BONES/JOINTS: Unremarkable. IMPRESSION: 1. Right lower lobe opacity suggesting infection. 2. Cardiomegaly without failure. Electronically signed by: Ny Stewart MD 10/20/2018 10:07 PM CDT
[2018-10-20] MEDS: cloNIDine HCL 0.1 MG TAB PO ONE ×2 (23:41→23:48)
[2018-10-20] MEDS ORDERED: levoFLOXacin 500 MG TAB PO ONE (23:49)
[2018-10-21 00:41] VITALS: BP 166/76; O2SAT 96
== END 2018-10-21 00:42 | disposition home or self-care (01) ==
LOC: ER 20:14
DX: J18.1 Lobar pneumonia, unspecified organism (principal); N18.4 Chronic kidney disease, stage 4 (severe); E11.22 Type 2 diabetes mellitus with diabetic chronic kidney disease; I13.0 Hypertensive heart and chronic kidney disease with heart failure and stage 1 through stage 4 chronic kidney disease, or unspecified chronic kidney disease; I50.9 Heart failure, unspecified; J44.9 Chronic obstructive pulmonary disease, unspecified; Z95.5 Presence of coronary angioplasty implant and graft; Z79.4 Long term (current) use of insulin; Z79.899 Other long term (current) drug therapy; Z87.891 Personal history of nicotine dependence; Z88.0 Allergy status to penicillin; Z88.1 Allergy status to other antibiotic agents; Z88.5 Allergy status to narcotic agent; Z88.7 Allergy status to serum and vaccine
CPT/HCPCS: 36415; 71045; 80048; 82550; 82553; 82948; 83880; 84484; 85025; 85610; 85730; 93005; 94640; J7614

== ENCOUNTER 2019-04-22 17:08 | Emergency (ER) | payer BC, MEDICARE ==
[2019-04-22] MEDS ORDERED: diazePAM INJ 10 MG/2 ML SYG ONE (17:30)
[2019-04-22] MEDS ORDERED: diazePAM INJ 10 MG/2 ML SYG IV ONE (18:19)
[2019-04-22] MEDS ORDERED: BENZTROPINE MESYLATE INJ 2 MG/2 ML AMP IV ONE (19:03)
[2019-04-22] MEDS ORDERED: CARBIDOPA/LEVODOPA 25/100 1 TAB PO ONE (20:23)
[2019-04-22] MEDS ORDERED: GABAPENTIN 100 MG CAP PO ONE (20:23)
[2019-04-22 21:04] VITALS: TEMP 97
--- NOTE | 2019-04-22 22:31 | ED.PDOC ---
History of Present Illness - General Chief Complaint: Neuro Symptoms/Deficits Stated Complaint: SEIZURES Time Seen by Provider: 04/22/19 17:09 Source: patient, family Exam Limitations: no limitations - History of Present Illness Initial Comments: the patient is a 49-year-old male presenting to emergency room secondary to recurrent episodes of atypical movements. The patient has been having episodes like this for the last couple of months however they are usually 1 or 2 episodes every couple of days. He has seen neurology twice, once at [facility] and once with a neurologist in [place]. he has apparently had an EEG performed when he was having one of the episodes. He has also apparently had 2 MRIs. They were not done here so I do not have the report of those. The episodes last anywhere from half a minute up to 10 minutes. He does not lose consciousness. Most of them seem to affect his right upper extremity while turning his neck towards the right and causing blinking type spasm to the right side of his face. He is able to talk during the episode. Mentation does appear to be a little bit slow during the episode. He also has episodes of myotonic type spasms of his lower extremities. Along with the start of these more severe episodes he has had some generalized tremor to his hands that started around the same period of time. These however have improved with the addition of Sinemet. He is also currently taking Vimpat. He has had approximately 8-10 episodes today prior to arrival. Upon arrival it did look significantly like a partial seizure and he received 10 mg of Valium but to no effect other than to make him drowsy. It did not slow or even temporarily stop the movements. He additionally had IV Cogentin which also did not seem to help and he has had another dose of his Sinemet and Vimpat. He is continuing to have episodes. The patient does have obstructive sleep apnea and episodes do seem to be triggered by the patient relaxing and start to go to sleep. No evidence of any hypoxia on the monitor when the events start. Additionally the patient is dialysis dependent and is due for dialysis tomorrow. is does havegood examples of the episodes on her phone. Timing/Duration: other - 2 months Severity: moderate Improving Factors: medication - medications have helped her tremors Worsening Factors: rest Associated Symptoms: denies symptoms Allergies/Adverse Reactions: Allergies Clindamycin Allergy (Verified 04/22/19 19:04) Levetiracetam [From [facility]] Allergy (Verified 04/22/19 19:04) Penicillins Allergy (Verified 11/21/18 14:20) Rash Pneumococcal Vaccine Allergy (Verified 04/22/19 19:04) Erythromycin Adverse Reaction (Verified 11/21/18 14:20) Nausea Hydrocodone Adverse Reaction (Verified 11/21/18 14:20) Other Makes patient "fidgety" Influenza A (H1N1) Monovalent Vacci Adverse Reaction (Verified 11/21/18 14:20) Home Medications: Ambulatory Orders Albuterol Sulfate [Proair Hfa] 2 puff INH Q6H PRN #1 02/03/15 Insulin Glargine [Toujeo Solostar] 58 unit SC BID 09/25/15 Insulin Lispro [Humalog] 0 unit SC PRN PRN 09/25/15 Clonidine HCl 0.3 mg PO Q8H 03/28/16 Rosuvastatin Calcium [Crestor] 40 mg PO .QEVENING 01/10/17 hydrALAZINE HCl [HydrALAzine HCl] 100 mg PO Q8H 01/10/17 Clopidogrel Bisulfate 75 mg PO DAILY 03/02/17 Dulaglutide [Trulicity] 1.5 ml SC WKLY 04/24/18 Montelukast [Singulair] 10 mg PO DAILY 04/24/18 Olmesartan Medoxomil [Benicar] 40 mg PO DAILY 04/24/18 Venlafaxine Xr [Effexor Xr] 75 mg PO DAILY 04/24/18 Gabapentin [Neurontin] 1 tablet PO BEDTIME 10/08/18 Hydroxyzine HCl [Hydroxyzine Hydrochloride] 25 mg PO Q6H 11/21/18 Insulin Glargine [Toujeo Solostar] 300 unit SC 04/22/19 Review of Systems - Review of Systems Constitutional: States: no symptoms reported EENTM: States: no symptoms reported Respiratory: States: no symptoms reported Cardiology: States: no symptoms reported Gastrointestinal/Abdominal: States: no symptoms reported Genitourinary: States: no symptoms reported Musculoskeletal: States: no symptoms reported Skin: States: no symptoms reported Neurological: States: see HPI, tremors Endocrine: States: no symptoms reported All other Systems: No Change from Baseline Past Medical History (General) - Patient Medical History Hx Seizures: No Hx Stroke: No Hx Dementia: No Hx Asthma: Yes Hx of COPD: No Hx Cardiac Disorders: Yes - Stent placement Hx Congestive Heart Failure: Yes Hx Pacemaker: No Hx Hypertension: Yes Hx Thyroid Disease: No Hx Diabetes: Yes - type 2 Hx Gastroesophageal Reflux: No Hx Renal Disease: Yes Hx Cancer: No Hx of HIV: No Hx Hepatitis C: No Hx MRSA: No Surgical History: other - Vaccination History Hx Tetanus, Diphtheria Vaccination: Yes Hx Influenza Vaccination: No Hx Pneumococcal Vaccination: Yes - Social History Hx Tobacco Use: Yes Hx Chewing Tobacco Use: Yes Hx Alcohol Use: No Hx Substance Use: No Hx Substance Use Treatment: No Hx Depression: No Hx Physical Abuse: No Hx Emotional Abuse: No Hx Suspected Abuse: No - Female History Patient : No Family Medical History - Family History Mother Living Status: Still Living Hx Family Hypertension: Yes - several family members Hx Cardiac Disease: Yes - dad -mi Hx Family Diabetes: Yes - several family members Father Family History: No Known Living Status: Hx Family Hypertension: Yes Hx Cardiac Disease: Yes Hx Family Diabetes: Yes Physical Exam - Physical Exam General Appearance: Alert, Comfortable, No apparent distress Eye Exam: bilateral normal Ears, Nose, Throat: hearing grossly normal, normal ENT inspection, normal pharynx Neck: full range of motion, supple Respiratory: lungs clear, normal breath sounds, no respiratory distress, no accessory muscle use Cardiovascular/Chest: normal peripheral pulses, regular rate, rhythm, no edema Peripheral Pulses: radial,right: 2+, radial,left: 2+, dorsalis pedis,right: 2+, dorsalis pedis,left: 2+ Gastrointestinal/Abdominal: non tender, soft Rectal Exam: deferred Back Exam: no CVA tenderness, no vertebral tenderness Extremity: normal range of motion, non-tender, normal inspection, no pedal edema, normal capillary refill Neurologic: rides supervisor II-XII nml as tested, alert, normal mood/affect, oriented x 3 Skin Exam: normal color Comments: Vital Signs - 24 hr 04/22/19 04/22/19 04/22/19 17:16 18:00 19:00 Temperature Pulse Rate [ 94 H 91 H 80 left brachial] Respiratory 20 20 18 Rate Blood Pressure 178/99 150/79 99/73 [left brachial] O2 Sat by Pulse 97 94 L 93 L Oximetry 04/22/19 04/22/19 04/22/19 20:00 21:00 21:32 Temperature 97.0 F L Pulse Rate [ 82 74 93 H left brachial] Respiratory 18 18 22 Rate Blood Pressure 130/72 144/72 159/75 [left brachial] O2 Sat by Pulse 95 95 99 Oximetry 04/22/19 22:12 Temperature Pulse Rate [ 89 left brachial] Respiratory 20 Rate Blood Pressure 128/72 [left brachial] O2 Sat by Pulse 97 Oximetry Progress - Progress Progress: 04/22/19 22:33 the patient is a 49-year-old male presenting to the emergency room secondary to myoclonic episodes numbering at least a dozen separate episodes today. Source of these is uncertain whether this is some form of dyskinesia or dystonia versus partial seizures. The patient is on Sinemet and Vimpat with his neurologist. The patient has failed to show any improvement with IV Valium or IV Cogentin. He has been dosed with his evening dose of gabapentin and Sinemet. His neurologist works at [place], and would like him transferred to a larger facility where he can be further evaluated, Preferably with video EEG monitoring. The patient is being transferred to [facility] in [place] for that reason. Vital signs are stable. The patient is resting comfortably for the moment. Transferring for specialty care. The patient will need dialysis tomorrow. 04/22/19 23:39 - Results/Orders Results/Orders: Laboratory Results - last 24 hr 04/22/19 04/22/19 04/22/19 17:37 17:53 17:53 WBC RBC Hgb Hct MCV MCH MCHC RDW Plt Count MPV Absolute Neuts (auto) Absolute Lymphs (auto) Absolute Monos (auto) Absolute Eos (auto) Absolute Basos (auto) Neutrophils % Lymphocytes % Monocytes % Eosinophils % Basophils % Sodium 139 Potassium 4.9 Chloride 98 L Carbon Dioxide 27 Anion Gap 18.9 H BUN 56 H Creatinine 4.94 H BUN/Creatinine Ratio 11.3 POC Glucose 143 H Random Glucose 146 H Serum Osmolality 295.7 H Lactic Acid 2.1 Calcium 9.2 Magnesium 2.2 Total Bilirubin 0.5 AST 17 ALT < 8 L Alkaline Phosphatase 55 Creatine Kinase 155 CK-MB (CK-2) 5.0 H* CK-MB (CK-2) % Not Reportable Troponin I < 0.02 Serum Total Protein 6.8 Albumin 3.9 Globulin 2.9 Albumin/Globulin Ratio 1.3 TSH 2.31 04/22/19 17:55 WBC 4.8 RBC 4.06 L Hgb 10.6 L Hct 33.2 L MCV 81.8 MCH 26.2 L MCHC 32.0 L RDW 18.7 H Plt Count 119 L MPV 8.8 Absolute Neuts (auto) 2.80 Absolute Lymphs (auto) 1.20 Absolute Monos (auto) 0.60 Absolute Eos (auto) 0.10 Absolute Basos (auto) 0.00 Neutrophils % 57.6 Lymphocytes % 25.7 Monocytes % 12.9 H Eosinophils % 2.9 Basophils % 0.9 Sodium Potassium Chloride Carbon Dioxide Anion Gap BUN Creatinine BUN/Creatinine Ratio POC Glucose Random Glucose Serum Osmolality Lactic Acid Calcium Magnesium Total Bilirubin AST ALT Alkaline Phosphatase Creatine Kinase CK-MB (CK-2) CK-MB (CK-2) % Troponin I Serum Total Protein Albumin Globulin Albumin/Globulin Ratio TSH Departure - Departure Clinical Impression: Movement disorder, Dependence on renal dialysis ICD-10 Supporting Text: dystonia versus partial seizure Disposition: Transfer to Hospital Departure Forms: ED Discharge - Pt. Copy, Patient Portal Self Enrollment Referrals: Leah Buckley NP [Primary Care Provider] - 1-2 Weeks Home Medications: Ambulatory Orders Albuterol Sulfate [Proair Hfa] 2 puff INH Q6H PRN #1 02/03/15 Insulin Glargine [Toujeo Solostar] 58 unit SC BID 09/25/15 Insulin Lispro [Humalog] 0 unit SC PRN PRN 09/25/15 Clonidine HCl 0.3 mg PO Q8H 03/28/16 Rosuvastatin Calcium [Crestor] 40 mg PO .QEVENING 01/10/17 hydrALAZINE HCl [HydrALAzine HCl] 100 mg PO Q8H 01/10/17 Clopidogrel Bisulfate 75 mg PO DAILY 03/02/17 Dulaglutide [Trulicity] 1.5 ml SC WKLY 04/24/18 Montelukast [Singulair] 10 mg PO DAILY 04/24/18 Olmesartan Medoxomil [Benicar] 40 mg PO DAILY 04/24/18 Venlafaxine Xr [Effexor Xr] 75 mg PO DAILY 04/24/18 Gabapentin [Neurontin] 1 tablet PO BEDTIME 10/08/18 Hydroxyzine HCl [Hydroxyzine Hydrochloride] 25 mg PO Q6H 11/21/18 Insulin Glargine [Toujeo Solostar] 300 unit SC 04/22/19 Transfer to Outside Facility - Transfer Information Decision to Transfer Date: 04/22/19 Decision to Transfer Time: 23:41 Reason for Transfer: specialized care not available Accepting Facility: [facility]
[2019-04-23 00:20] VITALS: BP 135/85; O2SAT 98
== END 2019-04-23 00:08 | disposition short-term general hospital (02) ==
LOC: ER 17:08
DX: G25.9 Extrapyramidal and movement disorder, unspecified (principal); R25.2 Cramp and spasm; R25.1 Tremor, unspecified; G47.33 Obstructive sleep apnea (adult) (pediatric); J45.909 Unspecified asthma, uncomplicated; I51.9 Heart disease, unspecified; I50.9 Heart failure, unspecified; I13.2 Hypertensive heart and chronic kidney disease with heart failure and with stage 5 chronic kidney disease, or end stage renal disease; E11.22 Type 2 diabetes mellitus with diabetic chronic kidney disease; N18.6 End stage renal disease; Z99.2 Dependence on renal dialysis; Z95.5 Presence of coronary angioplasty implant and graft; Z87.891 Personal history of nicotine dependence; Z88.1 Allergy status to other antibiotic agents; Z88.0 Allergy status to penicillin; Z88.7 Allergy status to serum and vaccine; Z88.5 Allergy status to narcotic agent; Z79.4 Long term (current) use of insulin; Z79.899 Other long term (current) drug therapy
CPT/HCPCS: 36415; 36416; 80053; 82550; 82553; 82948; 83605; 83735; 84443; 84484; 85025; J0515; J3360

== ENCOUNTER → 2019-06-20 | Outpatient (CLI) | payer BC, MEDICARE | LOC: LAB 12:41 | PROVIDERS: ATTEND Internal Medicine Endocrinology, Diabetes & Metabolism | DX: E11.42 Type 2 diabetes mellitus with diabetic polyneuropathy (principal); E78.5 Hyperlipidemia, unspecified; I10 Essential (primary) hypertension ==

== ENCOUNTER → 2019-07-16 | Outpatient (CLI) | payer BC, MEDICARE ==
--- NOTE | 2019-07-16 14:24 | CT ---
EXAM DESCRIPTION: Chest w/o Contrast CLINICAL HISTORY: 49 years, Male, Solitary pulmonary nodule COMPARISON: Previous CT examinations of the chest September 02, 2018 and April 05, 2017 TECHNIQUE: Thin-section noncontrast axial CT images are obtained according to our protocol. Reconstructed MPR images are created and reviewed as well. FINDINGS: Lungs: Lung window images show interval clearance of groundglass infiltrate in the upper lobes. Consolidation of the right lower lobe remains with lobulated masslike area posteriorly measuring 2.3 cm compared to 2.1 cm in August 2018 and 2.2 cm in March 2017. Mucous plugging is present. Air bronchograms are seen in the infiltrate which extends to the pleural surface. No central obstructing tumor is identified. The configuration is stable for greater than two years. Linear scarring in the left lower lobe is seen. No worrisome change to suggest a developing malignant process in the lungs. Mediastinum: Prominent subcarinal/paraesophageal node or cluster of nodes 1.4 cm short axis dimension compared to 1.1 cm on previous study. Subcarinal node measures 9 mm short axis dimension on the present study compared to 7 mm previously. Right hilar node measures 9 mm on present study compared to 8 mm previously. Pretracheal/right paratracheal nodes appear slightly larger as well. Largest right paratracheal node (axial image 33, series 4) measures 1.2 cm short axis dimension compared to 1 cm on previous study. Continued follow-up recommended here. Transcarinal approach or CME might be considered for biopsy if nodes continue to enlarge on follow-up studies. Normal vascular contours. Heart size is prominent with large pericardial effusion, increased compared to previous. Thickness posteriorly is 1.9 cm and anteriorly is 1.5 cm. Previously pericardial effusion measured 9 mm anteriorly. Extensive coronary calcification is present.. Chest wall/axilla: No mass or adenopathy. Lower neck/supraclavicular: No mass or adenopathy. Upper abdomen: Unremarkable upper abdominal viscera. Coronal and sagittal reformatted images confirm the findings. IMPRESSION: Focal consolidation in the right lower lobe unchanged compared to previous. Increased mediastinal adenopathy probably reactive. Continued follow-up recommended. Large pericardial effusion, increased compared to previous study. This exam was performed according to our departmental dose-optimization program, which includes automated exposure control, adjustment of the mA and/or kV according to patient size and/or use of iterative reconstruction technique. Total DLP equals 973.87 mGycm. Electronically signed by: Michael Henderson MD 07/16/2019 2:22 PM [facility]
== END ==
LOC: CT 13:06
PROVIDERS: ATTEND Internal Medicine Critical Care Medicine
DX: R91.1 Solitary pulmonary nodule (principal); I31.3 Pericardial effusion (noninflammatory); R59.9 Enlarged lymph nodes, unspecified

== ENCOUNTER → 2019-07-24 | Outpatient (CLI) | payer BC, MEDICARE | LOC: SL 19:24 | PROVIDERS: ATTEND Psychiatry & Neurology Sleep Medicine | DX: G47.33 Obstructive sleep apnea (adult) (pediatric) (principal); I10 Essential (primary) hypertension ==

== ENCOUNTER → 2019-08-01 | Outpatient (CLI) | payer BC, MEDICARE | LOC: LAB.O 09:43 | PROVIDERS: ATTEND Internal Medicine Nephrology | DX: N18.6 End stage renal disease (principal); D63.1 Anemia in chronic kidney disease ==

== ENCOUNTER → 2019-09-20 | Outpatient (CLI) | payer BC, MEDICARE | DX: E11.42 Type 2 diabetes mellitus with diabetic polyneuropathy (principal) ==

== ENCOUNTER → 2019-11-11 | Outpatient (CLI) | payer BC, MEDICARE ==
--- NOTE | 2019-11-11 17:07 | US ---
EXAM DESCRIPTION: Left breast: Ultrasound CLINICAL HISTORY: 49 yearsMaleUNSPEC. LUMP IN THE LEFT BREAST prior enlargement of the right breast. Patient taking multiple medications. No new medications in the past 3 months. Patient also on dialysis. COMPARISON: Ultrasound right breast. TECHNIQUE: Transcutaneous scanning of the bilateral breasts utilizing coffey-scale and Doppler modes. Scanning performed by the cocoa roaster ; observation by Dr. Estrada. FINDINGS: Ultrasound: Scanning retroareolar left breast. Slightly echogenic dilated ducts stranding by mostly fatty tissue. No dominant mass, distinct cyst, or calcifications. Retroareolar right breast with mostly fatty tissue. Minimal shadowing from the nipple. No dilated ducts. IMPRESSION: Benign exam. Gynecomastia left breast with dilated ducts. BIRAD CATEGORY: 2 BENIGN FINDINGS. RECOMMENDATIONS: FOLLOW UP: Bilateral diagnostic breast tomosynthesis if symptoms persist or breast enlarges. Written communication explaining the IMPRESSION and follow-up, will be mailed to the patient and referring health care provider. The FINDINGS and the FOLLOW-UP plan were reviewed in person with the patient after the examination. Electronically signed by: Sanford Estrada MD 11/11/2019 5:06 PM CDT
== END ==
LOC: US 10:00
PROVIDERS: ATTEND Nurse Practitioner Family
DX: N62 Hypertrophy of breast (principal); N60.42 Mammary duct ectasia of left breast

== ENCOUNTER 2019-11-27 05:42 | Day surgery (SDC) | payer BC, MEDICARE ==
--- NOTE | 2019-11-21 12:20 | RAD ---
EXAM DESCRIPTION: Chest,2 Views CLINICAL HISTORY: 49 years Male, pre op COMPARISON: CT chest 07/16/2019. Chest radiograph 11/21/2018, 04/26/2018. TECHNIQUE: 2 view radiograph of the chest. IMPRESSION: Enlarged cardiac silhouette. Partially calcified aorta. Again demonstrated wedge-shaped opacity in the right lower lung, similar to chest radiograph 04/26/2018. No pleural effusion or pneumothorax. Thoracic spondylosis. Electronically signed by: Tonny Rojas MD 11/21/2019 12:18 PM CDT
[2019-11-27] MEDS ORDERED: PROMETHAZINE HCL INJ 25 MG/ML VIAL ONE (07:00)
[2019-11-27] MEDS ORDERED: FAMOTIDINE 20 MG TAB ONE (07:00)
[2019-11-27] MEDS ORDERED: DEXAMETHASONE INJ 10 MG/ML VIAL ONE (07:00)
[2019-11-27] MEDS ORDERED: METOCLOPRAMIDE HCL INJ 10 MG/2 ML VIAL ONE (07:00)
[2019-11-27] MEDS ORDERED: SODIUM CHLORIDE 0.9% 50 ML VIAL ONE (07:00)
[2019-11-27] MEDS ORDERED: ceFAZolin SODIUM 1 GM VIAL ONE (07:00)
[2019-11-27] MEDS ORDERED: [UNRECOGNIZED DRUG - OTHER] PR ONE (07:00)
[2019-11-27] MEDS ORDERED: PROPOFOL 200 MG/20 ML VIAL IV ONE (07:00)
[2019-11-27] MEDS ORDERED: MIDAZOLAM INJ 2 MG/2 ML VIAL ONE (07:00)
[2019-11-27] MEDS ORDERED: KETAMINE HCL 100 MG/ML VIAL ONE (07:00)
[2019-11-27] MEDS ORDERED: BUPIVACAINE 0.5% W/EPI 30 ML VIAL INJ ONE ×2 (09:37)
[2019-11-27] MEDS ORDERED: hydrALAZINE HCl 20 MG/ML VIAL IV ONE (10:15)
[2019-11-27] MEDS ORDERED: fentaNYL CITRATE INJ 50 MCG/ML 2 ML AMP IV ONE (10:30)
[2019-11-27] MEDS ORDERED: ACETAMINOPHEN W/COD #3 TAB 1 EA TAB PO ONE (11:10)
--- NOTE | 2019-11-27 11:57 | OP ---
DATE OF PROCEDURE: 11/27/19 PREOPERATIVE DIAGNOSIS: 1. Incarcerated umbilical hernia. POSTOPERATIVE DIAGNOSIS: 1. Incarcerated umbilical hernia. PROCEDURE: 1. Repair of incarcerated umbilical hernia with mesh. 2. Partial omentectomy. SURGEON: Tashi Gannon MD. ANESTHESIA: General and local. FINDINGS: There was a relatively small defect, just less than 3 cm, but approximately 7 to 8 cm of omentum through it. It was incarcerated and non- strangulated. COMPLICATIONS: None. ESTIMATED BLOOD LOSS: Minimal. CONDITION: Stable. SPECIMEN: Omentum. PLAN: Discharge. INDICATION: As stated. PROCEDURE: General anesthesia was induced. He was prepped and draped in sterile fashion. The skin overlying the hernia was quite thin, so we made an infraumbilical incision in healthy fat. Subcutaneous tissues were taken down. We entered the hernia sac identifying the incarcerated omentum. This was extended. We dissected down to the fascial edge, which was quite small, so we used hemostats and 2-0 Vicryl ties to tie off the base of the omentum. Once the majority was removed, we were able to then successfully reduce the remainder. There were a few scars that were freed up. On finger sweep, the abdominal wall was clear of any adhesions. We left the portion of the sac superiorly as to not minimize the blood supply and cause ischemia of that thin flap of skin. A 2.5 Ventralex was more than adequate. It was placed in the abdominal cavity, lying nice and flat on the abdominal wall. The defect was then closed with multiple 0 PDS sutures incorporating the tail, trimming it and burying it on final closure. The umbilicus was then tacked down and the wound closed in 2 additional layers with absorbable suture. Local anesthesia had been used. He was awakened and taken to Recovery to be discharged. cc: DEREK Mello
[2019-11-27 12:04] VITALS: BP 131/64; TEMP 98; O2SAT 94
== END 2019-11-27 11:40 | disposition home or self-care (01) ==
LOC: AMB 05:42
PROVIDERS: ATTEND Surgery
DX: K42.0 Umbilical hernia with obstruction, without gangrene (principal); E78.2 Mixed hyperlipidemia; F32.9 Major depressive disorder, single episode, unspecified; G47.33 Obstructive sleep apnea (adult) (pediatric); I12.0 Hypertensive chronic kidney disease with stage 5 chronic kidney disease or end stage renal disease; E11.22 Type 2 diabetes mellitus with diabetic chronic kidney disease; N18.6 End stage renal disease; I25.10 Atherosclerotic heart disease of native coronary artery without angina pectoris; E66.01 Morbid (severe) obesity due to excess calories; J45.909 Unspecified asthma, uncomplicated; Z88.1 Allergy status to other antibiotic agents; Z88.5 Allergy status to narcotic agent; Z88.0 Allergy status to penicillin; Z79.02 Long term (current) use of antithrombotics/antiplatelets; Z79.4 Long term (current) use of insulin; Z87.891 Personal history of nicotine dependence
CPT/HCPCS: 00750; 36415; 36416; 49587; 71046; 80048; 82948; 85025; 88305; A4216; J0360; J0690; J1100; J2250; J2550; J2765; J3010; J3490

== ENCOUNTER 2019-12-04 22:09 | Emergency (ER) | payer BC, MEDICARE ==
[2019-12-04 22:31] VITALS: TEMP 97.3; O2SAT 97
[2019-12-04] MEDS ORDERED: ENOXAPARIN SODIUM 100 MG/ML SYG SUBCU ONE (22:34)
[2019-12-04] MEDS ORDERED: ENOXAPARIN SODIUM 40 MG/0.4 ML SYG SUBCU ONE (22:35)
--- NOTE | 2019-12-04 22:39 | ED.PDOC ---
History of Present Illness - General Chief Complaint: Lower Extremity Injury Stated Complaint: my leg hurts Time Seen by Provider: 12/04/19 22:10 Source: patient Exam Limitations: no limitations - History of Present Illness Initial Comments: The patient is a 49-year-old male presented emergency room secondary to pain in his right lower extremity between the posterior aspect of his right knee and his heel. It started about 8 hours prior to arrival. No shortness of breath. The patient is a dialysis patient and did have a umbilical hernia surgery about a week ago. Again no shortness of breath. No significant tachycardia. No hypoxia. No chest pain. He is pleasant and cooperative. He denies any history of any previous DVT. The patient does do dialysis. Timing/Duration: other Severity: mild Improving Factors: immobilization Worsening Factors: movement Associated Symptoms: denies symptoms Allergies/Adverse Reactions: Allergies Clindamycin Allergy (Verified 04/22/19 19:04) Levetiracetam [From Keppra] Allergy (Verified 04/22/19 19:04) Penicillins Allergy (Verified 11/21/18 14:20) Rash Pneumococcal Vaccine Allergy (Verified 04/22/19 19:04) Erythromycin Adverse Reaction (Verified 11/21/18 14:20) Nausea Hydrocodone Adverse Reaction (Verified 11/21/18 14:20) Other Makes patient "fidgety" Influenza A (H1N1) Monovalent Vacci Adverse Reaction (Verified 11/21/18 14:20) Home Medications: Ambulatory Orders Albuterol Sulfate [Proair Hfa] 2 puff INH Q6H PRN #1 02/03/15 Insulin Lispro [Humalog] 0 unit SC PRN PRN 09/25/15 Clonidine HCl 0.3 mg PO QID 03/28/16 Rosuvastatin Calcium [Crestor] 40 mg PO .QEVENING 01/10/17 hydrALAZINE HCl [HydrALAzine HCl] 100 mg PO Q8H 01/10/17 Clopidogrel Bisulfate 75 mg PO DAILY 03/02/17 Dulaglutide [Trulicity] 1.5 ml SC WKLY 04/24/18 Montelukast [Singulair] 10 mg PO BEDTIME 04/24/18 Olmesartan Medoxomil [Benicar] 40 mg PO DAILY 04/24/18 Venlafaxine Xr [Effexor Xr] 150 mg PO BEDTIME 04/24/18 Gabapentin [Neurontin] 1 tablet PO BEDTIME 10/08/18 Hydroxyzine HCl [Hydroxyzine Hydrochloride] 50 mg PO Q8H 11/21/18 Insulin Glargine [Toujeo Solostar] 58 unit SC BID 04/22/19 Alprazolam [Alprazolam ER] 0.5 mg PO PRN PRN 11/21/19 Calcium Acetate (Phosphate Bin [Calcium Acetate] 667 mg PO TID 11/21/19 Carbidopa-Levodopa [Carbidopa/Levodopa 25-100 mg] 1 tab PO QID 11/21/19 Fluticasone Furoate-Vilanterol [Breo Ellipta 200-25 Mcg/INH] 1 puff IN BEDTIME 11/21/19 Ipratropium/Albuterol [Duoneb] 3 ml NEB PRN PRN 11/21/19 Labetalol HCl [Labetalol Hydrochloride] 100 mg PO BID 11/21/19 Lacosamide [Vimpat] 150 mg PO BID 11/21/19 Lamotrigine [Lamictal] 100 mg PO BEDTIME 11/21/19 Minoxidil [Loniten] 10 mg PO BID 11/21/19 Review of Systems - Review of Systems Constitutional: States: no symptoms reported EENTM: States: no symptoms reported Respiratory: States: no symptoms reported Cardiology: States: no symptoms reported Gastrointestinal/Abdominal: States: no symptoms reported Genitourinary: States: no symptoms reported Musculoskeletal: States: see HPI Skin: States: no symptoms reported Neurological: States: no symptoms reported Endocrine: States: no symptoms reported All other Systems: No Change from Baseline Past Medical History (General) - Patient Medical History Hx Seizures: No Hx Stroke: No Hx Dementia: No Hx Asthma: No Hx of COPD: No Hx Cardiac Disorders: No Hx Congestive Heart Failure: No Hx Pacemaker: No Hx Hypertension: Yes Hx Thyroid Disease: No Hx Diabetes: Yes Hx Gastroesophageal Reflux: No Hx Renal Disease: Yes Hx Cancer: No Hx of HIV: No Hx Hepatitis C: No Hx MRSA: No Surgical History: other - Vaccination History Hx Tetanus, Diphtheria Vaccination: Yes Hx Influenza Vaccination: No Hx Pneumococcal Vaccination: Yes - Social History Hx Tobacco Use: Yes Hx Chewing Tobacco Use: No Hx Alcohol Use: No Hx Substance Use: No Hx Substance Use Treatment: No Hx Depression: No Feels Threatened In Home Enviroment: No Feels Threatened In a Relationship: No Hx Physical Abuse: No Hx Emotional Abuse: No Hx Suspected Abuse: No - Female History Patient is a Female of Child Bearing Age (10 -59 yrs old): No Patient : No Family Medical History - Family History Mother Living Status: Still Living Hx Family Hypertension: Yes - several family members Hx Cardiac Disease: Yes - dad -mi Hx Family Diabetes: Yes - several family members Father Family History: No Known Living Status: Hx Family Hypertension: Yes Hx Cardiac Disease: Yes Hx Family Diabetes: Yes Physical Exam - Physical Exam General Appearance: Alert, Comfortable Ears, Nose, Throat: hearing grossly normal Respiratory: no respiratory distress, no accessory muscle use Cardiovascular/Chest: other - Trace edema bilaterally Gastrointestinal/Abdominal: other - Obese Rectal Exam: deferred Extremity: normal range of motion, calf tenderness, pedal edema - Trace Neurologic: alert, normal mood/affect, oriented x 3 Skin Exam: normal color Comments: Vital Signs - 24 hr 12/04/19 22:25 Temperature 97.3 F L Pulse Rate [ 103 H Pulse Ox] Respiratory 18 Rate Blood Pressure 186/87 [Left Arm] O2 Sat by Pulse 97 Oximetry Progress - Progress Progress: 12/04/19 22:39 The patient is a 49-year-old male presented emergency room with aspect of his right lower leg. Patient does have numerous risk factors for the develo pment of a DVT. He did have recent surgery and he is a dialysis patient. No clinical evidence of any pulmonary embolus at this point. The patient is being dosed with 1 mg/kg of Lovenox. He can come back tomorrow after dialysis and get a venous Doppler of the right lower extremity to see if he indeed does have a DVT. If that is the case then a discussion will need to be had with his kennel aide as to which a blood thinner they would prefer. ER warnings are given. charles lucas [id number] Departure - Departure Clinical Impression: Lower extremity pain, posterior Qualifiers: Laterality: right Qualified Code(s): M79.604 - Pain in right leg Disposition: Discharge to Home or Self Care Condition: Fair Departure Forms: ED Discharge - Pt. Copy, Patient Portal Self Enrollment Diet: diabetic diet Activity: increase activity as tolerated Referrals: Leah Buckley NP [Primary Care Provider] - 1-2 Weeks Home Medications: Ambulatory Orders Albuterol Sulfate [Proair Hfa] 2 puff INH Q6H PRN #1 02/03/15 Insulin Lispro [Humalog] 0 unit SC PRN PRN 09/25/15 Clonidine HCl 0.3 mg PO QID 03/28/16 Rosuvastatin Calcium [Crestor] 40 mg PO .QEVENING 01/10/17 hydrALAZINE HCl [HydrALAzine HCl] 100 mg PO Q8H 01/10/17 Clopidogrel Bisulfate 75 mg PO DAILY 03/02/17 Dulaglutide [Trulicity] 1.5 ml SC WKLY 04/24/18 Montelukast [Singulair] 10 mg PO BEDTIME 04/24/18 Olmesartan Medoxomil [Benicar] 40 mg PO DAILY 04/24/18 Venlafaxine Xr [Effexor Xr] 150 mg PO BEDTIME 04/24/18 Gabapentin [Neurontin] 1 tablet PO BEDTIME 10/08/18 Hydroxyzine HCl [Hydroxyzine Hydrochloride] 50 mg PO Q8H 11/21/18 Insulin Glargine [Toujeo Solostar] 58 unit SC BID 04/22/19 Alprazolam [Alprazolam ER] 0.5 mg PO PRN PRN 11/21/19 Calcium Acetate (Phosphate Bin [Calcium Acetate] 667 mg PO TID 11/21/19 Carbidopa-Levodopa [Carbidopa/Levodopa 25-100 mg] 1 tab PO QID 11/21/19 Fluticasone Furoate-Vilanterol [Breo Ellipta 200-25 Mcg/INH] 1 puff IN BEDTIME 11/21/19 Ipratropium/Albuterol [Duoneb] 3 ml NEB PRN PRN 11/21/19 Labetalol HCl [Labetalol Hydrochloride] 100 mg PO BID 11/21/19 Lacosamide [Vimpat] 150 mg PO BID 11/21/19 Lamotrigine [Lamictal] 100 mg PO BEDTIME 11/21/19 Minoxidil [Loniten] 10 mg PO BID 11/21/19 Additional Instructions: The patient is a 49-year-old male presented emergency room with aspect of his right lower leg. Patient does have numerous risk factors for the development of a DVT. He did have recent surgery and he is a dialysis patient. No clinical evidence of any pulmonary embolus at this point. The patient is being dosed with 1 mg/kg of Lovenox. He can come back tomorrow after dialysis and get a venous Doppler of the right lower extremity to see if he indeed does have a DVT. If that is the case then a discussion will need to be had with his kennel aide as to which a blood thinner they would prefer. ER warnings are given.
[2019-12-04 22:56] VITALS: BP 182/86
== END 2019-12-04 22:56 | disposition home or self-care (01) ==
LOC: ER 22:09
DX: M79.604 Pain in right leg (principal); I10 Essential (primary) hypertension; E11.9 Type 2 diabetes mellitus without complications; F17.200 Nicotine dependence, unspecified, uncomplicated; E66.9 Obesity, unspecified; Z79.4 Long term (current) use of insulin; Z79.899 Other long term (current) drug therapy
CPT/HCPCS: J1650 ×2

== ENCOUNTER → 2019-12-05 | Outpatient (CLI) | payer BC, MEDICARE ==
--- NOTE | 2019-12-05 12:20 | US ---
EXAM DESCRIPTION: Venous,Lower Extremity RT: ULTRASOUND. CLINICAL HISTORY: pain in right leg COMPARISON: None Available. TECHNIQUE: Lackey-scale and doppler sonographic evaluation of the deep venous system of the right lower extremity. FINDINGS: Doppler evaluation shows normal color flow and normal phasicity and augmentation of the right common femoral vein, femoral vein, popliteal vein, greater saphenous vein, junction with the CFV. Also normal color flow and normal phasicity and augmentation of the peroneal, and posterior tibial vein. The right lower extremity deep veins were completely compressible; normal occlusion with transducer pressure. Lackey-scale survey showed no echogenic thrombus within these veins. IMPRESSION: 1. Duplex ultrasound evaluation of the right lower extremity deep venous system showing no evidence of thrombosis. Electronically signed by: Sanford Estrada MD 12/05/2019 12:19 PM CDT
== END ==
LOC: US 10:50
PROVIDERS: ATTEND Nurse Practitioner Family
DX: M79.604 Pain in right leg (principal)

== ENCOUNTER 2019-12-07 10:51 | Emergency (ER) | payer BC, MEDICARE ==
[2019-12-07 11:05] VITALS: TEMP 97.4
--- NOTE | 2019-12-07 11:30 | ED.PDOC ---
History of Present Illness - General Chief Complaint: General Stated Complaint: right leg pain Time Seen by Provider: 12/07/19 11:14 Source: patient, RN notes reviewed, Vital Signs reviewed Additional Information: 49yo M s/p recent umbilical hernia repair, h/o ESRD present with right leg pain. Patient reports remote history of fall causing right leg pain, and noted recurrence of similar pain after getting out of the bathtub this week. Denies fever, chills, cough, SOB, or other complaints at this time. Patient reports complete resolution of pain when leg is placed in certain positions, then recurrence when ambulatory or moving. Pain is located right lower leg, lateral aspect, non-radiating. Has tried OTC meds without relief. - History of Present Illness Allergies/Adverse Reactions: Allergies Clindamycin Allergy (Verified 04/22/19 19:04) Levetiracetam [From Keppra] Allergy (Verified 04/22/19 19:04) Penicillins Allergy (Verified 11/21/18 14:20) Rash Pneumococcal Vaccine Allergy (Verified 04/22/19 19:04) Erythromycin Adverse Reaction (Verified 11/21/18 14:20) Nausea Hydrocodone Adverse Reaction (Verified 11/21/18 14:20) Other Makes patient "fidgety" Influenza A (H1N1) Monovalent Vacci Adverse Reaction (Verified 11/21/18 14:20) Home Medications: Ambulatory Orders RX: Albuterol Sulfate [Proair Hfa] 2 puff INH Q6H PRN #1 02/03/15 RX: Insulin Lispro [Humalog] 0 unit SC PRN PRN 09/25/15 RX: Clonidine HCl 0.3 mg PO QID 03/28/16 RX: Rosuvastatin Calcium [Crestor] 40 mg PO .QEVENING 01/10/17 RX: hydrALAZINE HCl [HydrALAzine HCl] 100 mg PO Q8H 01/10/17 RX: Clopidogrel Bisulfate 75 mg PO DAILY 03/02/17 RX: Dulaglutide [Trulicity] 1.5 ml SC WKLY 04/24/18 RX: Montelukast [Singulair] 10 mg PO BEDTIME 04/24/18 RX: Olmesartan Medoxomil [Benicar] 40 mg PO DAILY 04/24/18 RX: Venlafaxine Xr [Effexor Xr] 150 mg PO BEDTIME 04/24/18 RX: Gabapentin [Neurontin] 1 tablet PO BEDTIME 10/08/18 RX: Hydroxyzine HCl [Hydroxyzine Hydrochloride] 50 mg PO Q8H 11/21/18 Insulin Glargine [Toujeo Solostar] 58 unit SC BID 04/22/19 Alprazolam [Alprazolam ER] 0.5 mg PO PRN PRN 11/21/19 Calcium Acetate (Phosphate Bin [Calcium Acetate] 667 mg PO TID 11/21/19 Carbidopa-Levodopa [Carbidopa/Levodopa 25-100 mg] 1 tab PO QID 11/21/19 Fluticasone Furoate-Vilanterol [Breo Ellipta 200-25 Mcg/INH] 1 puff IN BEDTIME 11/21/19 Ipratropium/Albuterol [Duoneb] 3 ml NEB PRN PRN 11/21/19 Labetalol HCl [Labetalol Hydrochloride] 100 mg PO BID 11/21/19 Lacosamide [Vimpat] 150 mg PO BID 11/21/19 Lamotrigine [Lamictal] 100 mg PO BEDTIME 11/21/19 Minoxidil [Loniten] 10 mg PO BID 11/21/19 Acetaminophen W/ Codeine [Tylenol W/ CODEINE #3] 1 ea PO Q6H PRN #15 12/07/19 Review of Systems - Review of Systems Constitutional: States: no symptoms reported EENTM: States: no symptoms reported Respiratory: States: no symptoms reported Cardiology: States: no symptoms reported Gastrointestinal/Abdominal: States: no symptoms reported Genitourinary: States: no symptoms reported Musculoskeletal: States: other - right lateral lower leg pain Past Medical History (General) - Patient Medical History Hx Seizures: No Hx Stroke: No Hx Dementia: No Hx Asthma: No Hx of COPD: No Hx Cardiac Disorders: Yes Hx Congestive Heart Failure: No Hx Pacemaker: No Hx Hypertension: Yes Hx Thyroid Disease: No Hx Diabetes: No Hx Gastroesophageal Reflux: No Hx Renal Disease: Yes Hx Cancer: No Hx of HIV: No Hx Hepatitis C: No Hx MRSA: No Surgical History: other - Vaccination History Hx Tetanus, Diphtheria Vaccination: Yes Hx Influenza Vaccination: No Hx Pneumococcal Vaccination: No - Social History Hx Tobacco Use: No Hx Chewing Tobacco Use: No Hx Alcohol Use: No Hx Substance Use: No Hx Substance Use Treatment: No Hx Depression: No Feels Threatened In Home Enviroment: No Feels Threatened In a Relationship: No Hx Physical Abuse: No Hx Emotional Abuse: No Hx Suspected Abuse: No - Female History Patient is a Female of Child Bearing Age (10 -59 yrs old): No Patient : No Family Medical History - Family History Father Family History: No Known Living Status: Hx Family Hypertension: Yes Hx Cardiac Disease: Yes Hx Family Diabetes: Yes Mother Living Status: Still Living Hx Family Hypertension: Yes - several family members Hx Cardiac Disease: Yes - dad -mi Hx Family Diabetes: Yes - several family members Physical Exam - Physical Exam General Appearance: Alert, No apparent distress, Well Groomed Ears, Nose, Throat: hearing grossly normal, normal ENT inspection Neck: non-tender, full range of motion, supple Respiratory: chest non-tender, normal breath sounds, no respiratory distress, no accessory muscle use Cardiovascular/Chest: normal peripheral pulses, regular rate, rhythm, other - 1+ pitting edema BLE; BLE - no ecchymosis, leg symmetrical-appearing size, no focal areas of pain or fluctuance with palpation, FROM all joints, intact light touch sensation Peripheral Pulses: dorsalis pedis,right: 2+, dorsalis pedis,left: 2+, posterior tibialis,right: 2+, posterior tibialis,left: 2+ Gastrointestinal/Abdominal: non tender, soft, other - periumbilical ecchymosis with well-healing surgical incision site with no discharge or erythema Back Exam: no CVA tenderness 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 Patient asymptomatic but becomes symptomatic with some specific movements, per report. Pain lateral aspect of knee to lateral malleolus, intermittent. Improved on reevaluation. Negative doppler from two days ago. Neurovascularly intact and ambulatory. Does not clinically appear septic joint, arterial occlusion, DVT. Imaging negative for fracture or dislocation. Discussed further diagnostic workup with patient (ie CT, including risks/benefits/alternatives thereof), and patient elected to defer advance imaging and further testing, and perform trial of more conservative therapies outpatient. ED warnings given, f/u PCP, ortho, and nephrology. 12/07/19 12:54 Imaging reports: right femur: "chronic changes as above. No acute disease." right knee: "chronic changes as above. No acute disease." right tibia: "chronic changes as above. No acute disease." 12/07/19 13:00 I reviewed the [facility] database for patient. Patient and I wore masks for duration of encounter, and I maintained a distance of 6 feet except for those brief times need for physical exam. Institutional screening protocol for coronavirus performed in triage. - EKG/XRAY/CT Comments: 1141 NSR rate of 93, normal axis, normal intervals, no STEMI Departure - Departure Clinical Impression: Leg pain, ESRD (end stage renal disease) Disposition: Discharge to Home or Self Care Condition: Good Departure Forms: ED Discharge - Pt. 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, Your [Other] - 1-2 Days Prescriptions: Acetaminophen W/ Codeine [Tylenol W/ CODEINE #3] 1 ea PO Q6H PRN #15 PRN Reason: Pain -- Severe Home Medications: Ambulatory Orders RX: Albuterol Sulfate [Proair Hfa] 2 puff INH Q6H PRN #1 02/03/15 RX: Insulin Lispro [Humalog] 0 unit SC PRN PRN 09/25/15 RX: Clonidine HCl 0.3 mg PO QID 03/28/16 RX: Rosuvastatin Calcium [Crestor] 40 mg PO .QEVENING 01/10/17 RX: hydrALAZINE HCl [HydrALAzine HCl] 100 mg PO Q8H 01/10/17 RX: Clopidogrel Bisulfate 75 mg PO DAILY 03/02/17 RX: Dulaglutide [Trulicity] 1.5 ml SC WKLY 04/24/18 RX: Montelukast [Singulair] 10 mg PO BEDTIME 04/24/18 RX: Olmesartan Medoxomil [Benicar] 40 mg PO DAILY 04/24/18 RX: Venlafaxine Xr [Effexor Xr] 150 mg PO BEDTIME 04/24/18 RX: Gabapentin [Neurontin] 1 tablet PO BEDTIME 10/08/18 RX: Hydroxyzine HCl [Hydroxyzine Hydrochloride] 50 mg PO Q8H 11/21/18 Insulin Glargine [Toujeo Solostar] 58 unit SC BID 04/22/19 Alprazolam [Alprazolam ER] 0.5 mg PO PRN PRN 11/21/19 Calcium Acetate (Phosphate Bin [Calcium Acetate] 667 mg PO TID 11/21/19 Carbidopa-Levodopa [Carbidopa/Levodopa 25-100 mg] 1 tab PO QID 11/21/19 Fluticasone Furoate-Vilanterol [Breo Ellipta 200-25 Mcg/INH] 1 puff IN BEDTIME 11/21/19 Ipratropium/Albuterol [Duoneb] 3 ml NEB PRN PRN 11/21/19 Labetalol HCl [Labetalol Hydrochloride] 100 mg PO BID 11/21/19 Lacosamide [Vimpat] 150 mg PO BID 11/21/19 Lamotrigine [Lamictal] 100 mg PO BEDTIME 11/21/19 Minoxidil [Loniten] 10 mg PO BID 11/21/19 Acetaminophen W/ Codeine [Tylenol W/ CODEINE #3] 1 ea PO Q6H PRN #15 12/07/19
[2019-12-07] MEDS ORDERED: ACETAMINOPHEN W/COD #3 TAB 1 EA TAB PO ONE (11:33)
[2019-12-07] MEDS ORDERED: ONDANSETRON ODT 8 MG TAB SL ONE (11:33)
[2019-12-07 12:06] VITALS: BP 124/67; O2SAT 100
--- NOTE | 2019-12-07 12:36 | RAD ---
EXAM: XR Right Femur, 2 Views CLINICAL HISTORY: pain s/p fall TECHNIQUE: Frontal and lateral views of the right femur. COMPARISON: Correlation made to right knee examination from the same time. FINDINGS: Bones/joints: Unremarkable. No acute fracture. No dislocation. Soft tissues: Unremarkable. Vasculature: Atherosclerotic calcification present. IMPRESSION: Chronic changes as above. No acute disease. Electronically signed by: Nayely Mcclendon MD 12/07/2019 12:34 PM CDT
--- NOTE | 2019-12-07 12:36 | RAD ---
EXAM: XR Right Knee, 3 Views CLINICAL HISTORY: pain s/p fall TECHNIQUE: Three views of the right knee. COMPARISON: No relevant prior studies available. FINDINGS: Bones/joints: Unremarkable. No acute fracture. No dislocation. Soft tissues: Unremarkable. Vasculature: Atherosclerotic calcification present. IMPRESSION: Chronic changes as above. No acute disease. Electronically signed by: Nayely Mcclendon MD 12/07/2019 12:35 PM CDT
--- NOTE | 2019-12-07 12:38 | RAD ---
EXAM: XR Right Tibia and Fibula, 2 Views CLINICAL HISTORY: pain s/p fall TECHNIQUE: Frontal and lateral views of the right tibia and fibula. COMPARISON: Correlation made to right knee examination performed at the same time. FINDINGS: Bones/joints: Unremarkable. No acute fracture. No dislocation. Soft tissues: Unremarkable. No radiopaque foreign body. Vasculature: Atherosclerosis. IMPRESSION: Chronic changes as above. No acute disease. Electronically signed by: Nayely Mcclendon MD 12/07/2019 12:36 PM CDT
== END 2019-12-07 13:05 | disposition home or self-care (01) ==
LOC: ER 10:51
DX: M79.661 Pain in right lower leg (principal); I12.0 Hypertensive chronic kidney disease with stage 5 chronic kidney disease or end stage renal disease; N18.6 End stage renal disease

== ENCOUNTER → 2019-12-08 | Outpatient (CLI) | payer BC, MEDICARE ==
--- NOTE | 2019-12-08 13:37 | CT ---
EXAM DESCRIPTION: Chest w/o Contrast CLINICAL HISTORY: 49 years Male, ENLARGED LYMPH NODES COMPARISON: Chest radiograph 11/21/2019. CT chest on 12/27/2019, 04/05/2017. TECHNIQUE: CT images through the chest without IV contrast. Multiplanar reformations provided. This exam was performed according to our departmental dose-optimization program, which includes automated exposure control, adjustment of the mA and/or kV according to patient size and/or use of iterative reconstruction technique. CT CHEST FINDINGS: Heart and mediastinum: Enlarged heart. Moderate pericardial effusion measuring up to 2 cm in thickness left posterior laterally. Mild atherosclerosis. Multiple nonpathologically enlarged based on lymph nodes measuring no greater than 7 mm short axis right paratracheal mediastinum. Evaluation for hilar adenopathy limited without intravenous contrast. Thyroid Gland: Normal. Lungs: Confluent opacity within the right lower lobe extending from the hilum. Linear atelectasis and/or scarring within the bilateral lower lobes. Airways: No bronchiectasis or airway filling defects. Pleura: Normal. Musculoskeletal and Soft Tissues: Chronic right rib fractures. Left gynecomastia. Subphrenic Structures: Unchanged 18 mm left adrenal adenoma. IMPRESSION: 1. No acute abnormality of the chest. 2. Chronic consolidation within the right lower lobe likely representing scarring/fibrosis or atelectasis. 3. Unchanged nonenlarged mediastinal adenopathy. 4. Large unchanged pericardial effusion. 5. Unchanged left adrenal adenoma. Electronically signed by: Tonny Rojas MD 12/08/2019 1:35 PM CDT
== END ==
LOC: CT 12:59
PROVIDERS: ATTEND Internal Medicine Critical Care Medicine
DX: R59.9 Enlarged lymph nodes, unspecified (principal); R91.8 Other nonspecific abnormal finding of lung field; J45.40 Moderate persistent asthma, uncomplicated; I25.10 Atherosclerotic heart disease of native coronary artery without angina pectoris; I10 Essential (primary) hypertension; I31.3 Pericardial effusion (noninflammatory); D35.02 Benign neoplasm of left adrenal gland; N18.6 End stage renal disease; G47.33 Obstructive sleep apnea (adult) (pediatric)

== ENCOUNTER 2019-12-21 18:27 | Emergency (ER) | payer BC, MEDICARE ==
--- NOTE | 2019-12-21 19:51 | ED.PDOC ---
History of Present Illness - General Chief Complaint: Blood Pressure Problem Stated Complaint: low BP,dizzy,lethargic Time Seen by Provider: 12/21/19 19:01 Source: patient, RN notes reviewed, Vital Signs reviewed Additional Information: 49yo M with multiple medical problems presents to ED today with concern for low blood pressures. Patient reported feeling of lethargy and fatigue over the past several days. Family measured his blood pressure using arm cuff, noted to be systolic 90s. On standing, they reported BP was in 70s. Patient reports symptoms of fatigue have improved on arrival. Denies chest pain, SOB, n/v, diarrhea, bleeding, fever, cough, sick contacts, or other symptoms at this time. - History of Present Illness Allergies/Adverse Reactions: Allergies Clindamycin Allergy (Verified 12/15/19 10:24) Levetiracetam [From Keppra] Allergy (Verified 12/15/19 10:24) Penicillins Allergy (Verified 12/15/19 10:24) Rash Pneumococcal Vaccine Allergy (Verified 12/15/19 10:24) Erythromycin Adverse Reaction (Verified 12/15/19 10:24) Nausea Hydrocodone Adverse Reaction (Verified 12/15/19 10:24) Other Makes patient "fidgety" Influenza A (H1N1) Monovalent Vacci Adverse Reaction (Verified 12/15/19 10:24) Home Medications: Ambulatory Orders Albuterol Sulfate [Proair Hfa] 2 puff INH Q6H PRN #1 02/03/15 Insulin Lispro [Humalog] 0 unit SC PRN PRN 09/25/15 Clonidine HCl 0.3 mg PO QID 03/28/16 Rosuvastatin Calcium [Crestor] 40 mg PO .QEVENING 01/10/17 hydrALAZINE HCl [HydrALAzine HCl] 100 mg PO Q8H 01/10/17 Clopidogrel Bisulfate 75 mg PO DAILY 03/02/17 Dulaglutide [Trulicity] 1.5 ml SC WKLY 04/24/18 Montelukast [Singulair] 10 mg PO BEDTIME 04/24/18 Olmesartan Medoxomil [Benicar] 40 mg PO DAILY 04/24/18 Venlafaxine Xr [Effexor Xr] 150 mg PO BEDTIME 04/24/18 Gabapentin [Neurontin] 1 tablet PO BEDTIME 10/08/18 Hydroxyzine HCl [Hydroxyzine Hydrochloride] 50 mg PO Q8H 11/21/18 Insulin Glargine [Toujeo Solostar] 58 unit SC BID 04/22/19 Alprazolam [Alprazolam ER] 0.5 mg PO PRN PRN 11/21/19 Calcium Acetate (Phosphate Bin [Calcium Acetate] 667 mg PO TID 11/21/19 Carbidopa-Levodopa [Carbidopa/Levodopa 25-100 mg] 1 tab PO QID 11/21/19 Fluticasone Furoate-Vilanterol [Breo Ellipta 200-25 Mcg/INH] 1 puff IN BEDTIME 11/21/19 Ipratropium/Albuterol [Duoneb] 3 ml NEB PRN PRN 11/21/19 Labetalol HCl [Labetalol Hydrochloride] 100 mg PO BID 11/21/19 Lacosamide [Vimpat] 150 mg PO BID 11/21/19 Lamotrigine [Lamictal] 100 mg PO BEDTIME 11/21/19 Minoxidil [Loniten] 10 mg PO BID 11/21/19 Acetaminophen W/ Codeine [Tylenol W/ CODEINE #3] 1 ea PO Q6H PRN #15 12/07/19 Review of Systems - Review of Systems Constitutional: States: weakness. Denies: chills, fever EENTM: States: no symptoms reported Respiratory: States: no symptoms reported Cardiology: States: no symptoms reported Gastrointestinal/Abdominal: States: no symptoms reported All other Systems: Reviewed and Negative Past Medical History (General) - Patient Medical History Hx Seizures: No Hx Stroke: No Hx Dementia: No Hx Asthma: No Hx of COPD: No Hx Cardiac Disorders: Yes Hx Congestive Heart Failure: No Hx Pacemaker: No Hx Hypertension: Yes Hx Thyroid Disease: No Hx Diabetes: Yes Hx Gastroesophageal Reflux: No Hx Renal Disease: Yes Hx Cancer: No Hx of HIV: No Hx Hepatitis C: No Hx MRSA: No - Vaccination History Hx Tetanus, Diphtheria Vaccination: Yes Hx Influenza Vaccination: No Hx Pneumococcal Vaccination: Yes - Social History Hx Tobacco Use: Yes Hx Chewing Tobacco Use: No Hx Alcohol Use: No Hx Substance Use: No Hx Substance Use Treatment: No Hx Depression: No Hx Physical Abuse: No Hx Emotional Abuse: No Hx Suspected Abuse: No - Female History Patient : No Family Medical History - Family History Mother Living Status: Still Living Hx Family Hypertension: Yes - several family members Hx Cardiac Disease: Yes - dad -mi Hx Family Diabetes: Yes - several family members Father Family History: No Known Living Status: Hx Family Hypertension: Yes Hx Cardiac Disease: Yes Hx Family Diabetes: Yes Physical Exam - Physical Exam General Appearance: Alert, Comfortable, Obese, Well Developed, Well Nourished Neck: non-tender, full range of motion, supple Respiratory: chest non-tender, lungs clear, normal breath sounds Cardiovascular/Chest: normal peripheral pulses, regular rate, rhythm, no edema Gastrointestinal/Abdominal: normal bowel sounds, non tender, soft Extremity: normal range of motion, non-tender 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 He denies any CP or SOB and no other anginal equivalency noted. Low suspicion for ACS, aortic pathology or acute blood loss anemia. Asymptomatic on recheck. BP improved and symptoms resolved with 2 hours of observation. Unclear etiology of diffuse weakness, and discussed diagnostic uncertainty with patient. Orthostatics negative. They voiced understanding and agreement with plan of care and discharge. He has dialysis tomorrow, and reports he would discuss his blood pressure regimen with them at that time. ED warnings given. 12/21/19 20:22 Patient and I wore masks for duration of encounter, and I maintained a distance of 6 feet except for those brief times need for physical exam. Institutional screening protocol for coronavirus performed in triage. Ajith Gaming MD #[id number] - EKG/XRAY/CT EKG: Sinus Comments: 1832 NSR rate 98, normal axis, normal intervals, no STEMI Departure - Departure Clinical Impression: Fatigue, Hypotension Time of Disposition: 20:20 Disposition: Discharge to Home or Self Care Condition: Good Departure Forms: ED Discharge - Pt. Copy, Patient Portal Self Enrollment Instructions: DI for High Blood Pressure, DI for Hypotension, Fatigue (DC) Diet: low salt diet Activity: increase activity as tolerated Referrals: Leah Buckley NP [Primary Care Provider] - 1-2 Weeks Home Medications: Ambulatory Orders Albuterol Sulfate [Proair Hfa] 2 puff INH Q6H PRN #1 02/03/15 Insulin Lispro [Humalog] 0 unit SC PRN PRN 09/25/15 Clonidine HCl 0.3 mg PO QID 03/28/16 Rosuvastatin Calcium [Crestor] 40 mg PO .QEVENING 01/10/17 hydrALAZINE HCl [HydrALAzine HCl] 100 mg PO Q8H 01/10/17 Clopidogrel Bisulfate 75 mg PO DAILY 03/02/17 Dulaglutide [Trulicity] 1.5 ml SC WKLY 04/24/18 Montelukast [Singulair] 10 mg PO BEDTIME 04/24/18 Olmesartan Medoxomil [Benicar] 40 mg PO DAILY 04/24/18 Venlafaxine Xr [Effexor Xr] 150 mg PO BEDTIME 04/24/18 Gabapentin [Neurontin] 1 tablet PO BEDTIME 10/08/18 Hydroxyzine HCl [Hydroxyzine Hydrochloride] 50 mg PO Q8H 11/21/18 Insulin Glargine [Toujeo Solostar] 58 unit SC BID 04/22/19 Alprazolam [Alprazolam ER] 0.5 mg PO PRN PRN 11/21/19 Calcium Acetate (Phosphate Bin [Calcium Acetate] 667 mg PO TID 11/21/19 Carbidopa-Levodopa [Carbidopa/Levodopa 25-100 mg] 1 tab PO QID 11/21/19 Fluticasone Furoate-Vilanterol [Breo Ellipta 200-25 Mcg/INH] 1 puff IN BEDTIME 11/21/19 Ipratropium/Albuterol [Duoneb] 3 ml NEB PRN PRN 11/21/19 Labetalol HCl [Labetalol Hydrochloride] 100 mg PO BID 11/21/19 Lacosamide [Vimpat] 150 mg PO BID 11/21/19 Lamotrigine [Lamictal] 100 mg PO BEDTIME 11/21/19 Minoxidil [Loniten] 10 mg PO BID 11/21/19 Acetaminophen W/ Codeine [Tylenol W/ CODEINE #3] 1 ea PO Q6H PRN #15 12/07/19 Additional Instructions: You were seen in the [facility] Emergency Department today. Please fill and take the medications as prescribed (if any) and if you were prescribed antibiotics, please complete the full course. You will need further evaluation on an out patient basis. You must follow up with the listed locations and within the time frames indicated in your discharge paperwork (including your PCP in 3-5 days). Failure to follow up with any studies or doctor visits within the timeframe mentioned could result in poor outcome. Your examination today in the ED did not reveal a new or old problem that required immediate surgery or admission to the hospital. However, you should return to the ED if you are not improving as instructed (especially within the first 6 to 24 hours). This may include things such as uncontrolled vomiting, sh ortness of breath, fever, bleeding, or severe pain in a body part. You should return for any new or worsening emergency symptoms such as chest pain, severe headache, confusion, or severe abdominal pain. Finally, return to the emergency department if you have any concerns not mentioned above that are concerning to you or if you are unable to follow up as instructed above. Thank you for coming to [facility]. It was our pleasure to serve you today and we thank you for your visit.
[2019-12-21 20:28] VITALS: BP 132/86; TEMP 96.9; O2SAT 95
== END 2019-12-21 20:35 | disposition home or self-care (01) ==
LOC: ER 18:27
DX: R53.83 Other fatigue (principal); I95.9 Hypotension, unspecified; I10 Essential (primary) hypertension; E11.9 Type 2 diabetes mellitus without complications; Z87.891 Personal history of nicotine dependence; Z79.4 Long term (current) use of insulin; Z79.899 Other long term (current) drug therapy

== ENCOUNTER 2019-12-25 05:40 | Day surgery (SDC) | payer BC, MEDICARE ==
[2019-12-25] MEDS ORDERED: LACTATED RINGERS 1,000 ML ONE (06:41)
[2019-12-25] MEDS ORDERED: PROPOFOL 200 MG/20 ML VIAL IV ONE (07:00)
[2019-12-25] MEDS ORDERED: LIDOCAINE 1% 10 ML VIAL INJ ONE (07:00)
[2019-12-25] MEDS ORDERED: LACTATED RINGERS 1,000 ML IVS ONE (09:55)
[2019-12-25] MEDS ORDERED: MIDAZOLAM INJ 2 MG/2 ML VIAL ONE (10:16)
[2019-12-25] MEDS ORDERED: KETAMINE HCL 100 MG/ML VIAL ONE (10:16)
[2019-12-25 10:57] VITALS: TEMP 97; O2SAT 98
--- NOTE | 2019-12-25 11:01 | OP ---
DATE OF PROCEDURE: 12/25/19 PREOPERATIVE DIAGNOSIS: 1. Screening colonoscopy. POSTOPERATIVE DIAGNOSIS: 1. Screening colonoscopy with normal colon. PROCEDURE: 1. Colonoscopy. SURGEON: Tashi Gannon MD ANESTHESIA: General. FINDINGS: No evidence of polyps or colitis, normal scope. COMPLICATIONS: None. ESTIMATED BLOOD LOSS: None. PLAN: Discharge. INDICATION: As stated. PROCEDURE: Anesthesia was induced. Digital rectal exam was normal. The colonoscope was introduced and passed relatively easily to the cecum as identified by the ileocecal valve and the appendiceal orifice. There was still a lot of liquid stool which was irrigated both on the way in and on the way out. We did get an adequate evaluation. Upon withdrawal of the scope, there were no abnormalities seen, no colitis, no stricture, no inflammation, no polyps seen. The procedure was terminated. The patient tolerated the procedure well and was taken to Recovery to be discharged. Followup colonoscopy in ten years. #[id number] MTDD
[2019-12-25 11:53] VITALS: BP 133/72
== END 2019-12-25 11:53 | disposition home or self-care (01) ==
LOC: AMB 05:40
PROVIDERS: ATTEND Surgery
DX: Z12.11 Encounter for screening for malignant neoplasm of colon (principal); J45.909 Unspecified asthma, uncomplicated; E11.9 Type 2 diabetes mellitus without complications; I10 Essential (primary) hypertension; F32.9 Major depressive disorder, single episode, unspecified; I25.10 Atherosclerotic heart disease of native coronary artery without angina pectoris; E78.00 Pure hypercholesterolemia, unspecified; E66.01 Morbid (severe) obesity due to excess calories; Z88.1 Allergy status to other antibiotic agents; Z88.5 Allergy status to narcotic agent; Z88.0 Allergy status to penicillin; Z79.899 Other long term (current) drug therapy; Z79.02 Long term (current) use of antithrombotics/antiplatelets; Z79.4 Long term (current) use of insulin; Z68.41 Body mass index [BMI] 40.0-44.9, adult
CPT/HCPCS: 00812; 36416; 45378; 82948; J2250; J3490; J7120

== ENCOUNTER → 2020-05-05 | Outpatient (CLI) | payer OTHER, MEDICARE | LOC: LAB 11:09 | PROVIDERS: ATTEND Nurse Practitioner Family | DX: Z01.89 Encounter for other specified special examinations (principal) ==

== ENCOUNTER → 2020-05-10 | Outpatient (CLI) | payer OTHER, MEDICARE | LOC: LAB.O 11:59 | PROVIDERS: ATTEND Internal Medicine Nephrology | DX: Z01.89 Encounter for other specified special examinations (principal) ==

== ENCOUNTER → 2020-05-13 | Outpatient (CLI) | payer OTHER, MEDICARE | LOC: LAB 11:30 | PROVIDERS: ATTEND Internal Medicine Nephrology | DX: Z01.818 Encounter for other preprocedural examination (principal) ==

== ENCOUNTER → 2020-06-28 | Outpatient (CLI) | payer OTHER, MEDICARE ==
--- NOTE | 2020-06-28 13:05 | US ---
EXAM DESCRIPTION: Abdomen,Complete: Ultrasound. CLINICAL HISTORY: 50 years Male ESRD COMPARISON: CT scan of the abdomen August 2018 and ultrasound of the abdomen April 2018. TECHNIQUE: Transabdominal scanning: grayscale and Doppler modes. FINDINGS: Gallbladder: normal size, shape, echogenicity; no intraluminal stones or sludge. No fluid around the gallbladder. No wall thickening. 2.4 mm Non-tender with transducer pressure. Common bile duct: caliber 4.8 mm within normal limits. Liver: Heterogeneously increased echogenicity; contour liver capsule smooth where seen. No fluid around the liver. Intrahepatic biliary ducts normal caliber. Doppler hepatopedal flow and normal caliber portal vein 9.5 mm. Long axis right lobe 18.4 cm. Pancreas: normal size and echogenicity. Duct not seen. Complete abdominal aorta: Normal caliber from the proximal segment to the distal bifurcation.. IVC: visualized and normal caliber. Right kidney: long axis measures 10.3 cm; volume 155.8 mL. Cortical echogenicity is normal. Normal cortical thickness. No echogenic stones; no hydronephrosis. Left kidney: long axis measures 10.6 cm; volume 141.4 mL. Cortical echogenicity is normal. Normal cortical thickness. No echogenic stones; no hydronephrosis. Spleen: Normal. No focal lesions.. 13.7 cm long axis. Other: None. IMPRESSION: 1. Technically difficult study due to patient large body habitus. Heterogeneous steatosis in the liver and mild enlargement. Physiologic ducts and vascularity. Smooth capsule and no ascites. Pancreas is negative. Spleen is mildly enlarged with normal vascularity. 2. Gallbladder and common bile duct are unremarkable. 3. Bilateral kidneys with negative findings. Caliber of the abdominal aorta and the IVC. Electronically signed by: Sanford Estrada MD 06/28/2020 1:03 PM [employer]
== END ==
LOC: US 09:59
PROVIDERS: ATTEND Surgery
DX: I10 Essential (primary) hypertension (principal); E66.01 Morbid (severe) obesity due to excess calories; N18.6 End stage renal disease; E11.21 Type 2 diabetes mellitus with diabetic nephropathy

== ENCOUNTER → 2020-07-05 | Outpatient (CLI) | payer OTHER, MEDICARE | LOC: LAB.O 18:43 | PROVIDERS: ATTEND Nurse Practitioner Family | DX: Z01.89 Encounter for other specified special examinations (principal) ==

== ENCOUNTER 2020-07-06 08:50 | Outpatient (CLI) | payer OTHER, MEDICARE | END 2020-07-06 12:00 | disposition home or self-care (01) | LOC: INFRM 08:50 | PROVIDERS: ATTEND Nurse Practitioner Family | DX: U07.1 COVID-19 (principal); Z23 Encounter for immunization ==

== ENCOUNTER → 2020-07-19 | Outpatient (CLI) | payer OTHER, MEDICARE ==
--- NOTE | 2020-07-19 11:26 | RAD ---
EXAM DESCRIPTION: Chest,2 Views CLINICAL HISTORY: 50 years Male, COVID COMPARISON: CT chest 12/08/2019. Chest radiograph 11/20/2022. TECHNIQUE: 2 view radiograph of the chest. IMPRESSION: Enlarged cardiac silhouette. Left IJ dual-lumen central venous catheter terminates in the lower superior vena cava. Partially calcified aorta. Right greater than left patchy airspace opacities predominantly within the mid to lower lungs likely representing multifocal pneumonia or viral infection) the patient's history. Blunting of the right costophrenic angle which may be from small pleural effusion. No pneumothorax. Thoracic spondylosis. Electronically signed by: Tonny Rojas MD 07/19/2020 11:24 AM [employer]MENT [employer]
== END ==
LOC: RAD 10:08
PROVIDERS: ATTEND Nurse Practitioner Family
DX: U07.1 COVID-19 (principal); M47.894 Other spondylosis, thoracic region; I51.7 Cardiomegaly; J91.8 Pleural effusion in other conditions classified elsewhere; R91.8 Other nonspecific abnormal finding of lung field